=== PATIENT | female | born 1970 | race African-American/Black ===

== ENCOUNTER 2016-04-15 11:41 | Inpatient (IN) | payer MEDICAID ==
[2016-04-15] MEDS ORDERED: OXYCODONE-ACETAMINOPHEN 5-325 MG TABLET PO ONE (12:12)
[2016-04-15] MEDS ORDERED: ONDANSETRON 4 MG TAB.RAPDIS PO ONE (12:12)
--- NOTE | 2016-04-15 12:12 | ER Document Report ---
ED Medical Screen (RME) - General Chief Complaint: Abdominal Pain Stated Complaint: ABDOMINAL PAIN, VOMITING Notes: 45 yo female with hx/o Crohn's, c/o lower abdominal pain x 2 weeks, acutely worse since yesterday. + n/v/d. not tolerating PO. no fever. TRAVEL OUTSIDE OF THE [place] IN LAST 30 DAYS: No - Related Data Allergies/Adverse Reactions: ceftriaxone sodium [From Rocephin] Allergy (Severe, Verified 09/19/15 13:42) Anaphylaxis Ciprofloxacin Lactate [From Cipro I.V.] Allergy (Intermediate, Verified 13:42) Hives morphine [Morphine] Allergy (Intermediate, Verified 09/19/15 13:42) Hives aspirin [Aspirin] Adverse Reaction (Intermediate, Verified 09/19/15 13:42) GI distress tramadol [Tramadol] Adverse Reaction (Intermediate, Verified 09/19/15 13:42) GI upset Past Medical History - Social History Chew tobacco use (# tins/day): No Frequency of alcohol use: None Drug Abuse: None Family history: Reviewed & Not Pertinent Pulmonary Medical History: Reports: Hx Pneumonia Denies: Hx Asthma, Hx COPD, Hx Tuberculosis Neurological Medical History: Denies: Hx Seizures GI Medical History: Reports: Hx Crohn's Disease Psychiatric Medical History: Denies: Hx Depression Past Surgical History: Reports: Hx Abdominal Surgery, Hx Tubal Ligation. Denies : Hx Hysterectomy, Hx Pacemaker - Immunizations Hx Diphtheria, Pertussis, Tetanus Vaccination: Yes Physical Exam - Vital signs Vitals: Temp Pulse Resp BP Pulse Ox 97.7 F 94 20 112/80 99 04/15/16 12:04/15/16 12:04/15/16 12:04/15/16 12:06 04/15/16 12:06 Course - Vital Signs Vital signs: Temp Pulse Resp BP Pulse Ox 97.7 F 94 20 112/80 99 04/15/16 12:06 04/15/16 12:04/15/16 12:04/15/16 12:06 04/15/16 12:06
[2016-04-15 12:46] LABS: ABSOLUTE EOSINOPHILS # (AUTO) 0.1 10^3/uL (0.0-0.6); ABSOLUTE LYMPHOCYTES (AUTO) 1.3 10^3/uL (0.5-4.7); ABSOLUTE MONOCYTES (AUTO) 0.6 10^3/uL (0.1-1.4); ABSOLUTE NEUT (AUTO) 6.2 10^3/uL (1.7-8.2); BASOPHILS % (AUTO) 0.5 % (0-2); EOSINOPHILS % (AUTO) 1.3 % (0-6); HEMATOCRIT 37.4 % (36.0-47.0); HEMOGLOBIN 12.6 g/dL (12.0-15.5); HGB HCT DIFFERENCE 0.4; LYMPHOCYTES % (AUTO) 15.8 % (13-45); MEAN CORPUSCULAR HEMOGLOBIN 30.3 pg (27.0-33.4); MEAN CORPUSCULAR HGB CONC 33.5 g/dL (32.0-36.0); MEAN CORPUSCULAR VOLUME 91 fl (80-97); MONOCYTES % (AUTO) 7.4 % (3-13); RED BLOOD COUNT 4.14 10^6/uL (3.72-5.28); RED CELL DISTRIBUTION WIDTH 15.9 % (11.5-14.0); WHITE BLOOD COUNT 8.3 10^3/uL (4.0-10.5)
[2016-04-15 12:53] LABS: APPEARANCE,URINE CLOUDY; BILIRUBIN,URINE NEGATIVE (NEGATIVE); GLUCOSE, URINE NEGATIVE (NEGATIVE); KETONES,URINE 80 mg/dL (NEGATIVE); LEUKOCYTE ESTERASE,URINE TRACE (NEGATIVE); NITRITE,URINE NEGATIVE (NEGATIVE); PROTEIN,URINE 30 mg/dL (NEGATIVE); URINE SPECIFIC GRAVITY 1.029
[2016-04-15 13:05] LABS: ALANINE AMINOTRANSFERASE 32 U/L (9-52); ALKALINE PHOSPHATASE 64 U/L (38-126); ANION GAP 16 (5-19); ASPARTATE AMINO TRANSFERASE 20 U/L (14-36); BILIRUBIN,TOTAL 1.3 mg/dL (0.2-1.3); BLOOD UREA NITROGEN 11 mg/dL (7-20); CALCIUM 9.5 mg/dL (8.4-10.2); CARBON DIOXIDE 21 mmol/L (22-30); CHLORIDE 104 mmol/L (98-107); CREATININE RESULT 0.75 mg/dL (0.52-1.25); GLUCOSE 90 mg/dL (75-110); LIPASE 47.6 U/L (23-300); POTASSIUM 3.6 mmol/L (3.6-5.0); SODIUM 140.6 mmol/L (137-145); TOTAL PROTEIN 7.8 g/dL (6.3-8.2)
[2016-04-15] MEDS ORDERED: NORMAL SALINE 1000 ML 1,000 ML IV ONE ×2 (13:39→16:39)
[2016-04-15] MEDS ORDERED: HYDROMORPHONE HCL INJ/PF 2 MG/ML AMPULE IV ONE ×2 (13:40→16:06)
--- NOTE | 2016-04-15 14:02 | ER Document Report ---
ED GI/ - General Chief Complaint: Abdominal Pain Stated Complaint: ABDOMINAL PAIN, VOMITING Mode of Arrival: Ambulatory Information source: Patient Notes: The patient is a 45 her old female, past medical history Crohn's, prior abscesses, presents with 3 days of lower abdominal pain, similar to her prior SBO. She is also having some nausea and vomiting. She has not seen her GI doctor and was off Humira for the past 4 months. She has had decreased bowel movements today. She denies hematemesis, bloody diarrhea, urinary symptoms, flank pain, fevers, chest pain or shortness of breath. TRAVEL OUTSIDE OF THE [place] IN LAST 30 DAYS: No - Related Data Allergies/Adverse Reactions: ceftriaxone sodium [From Rocephin] Allergy (Severe, Verified 04/15/16 14:31) Anaphylaxis Ciprofloxacin Lactate [From Cipro I.V.] Allergy (Intermediate, Verified 14:31) Hives morphine [Morphine] Allergy (Intermediate, Verified 04/15/16 14:31) Hives aspirin [Aspirin] Adverse Reaction (Intermediate, Verified 04/15/16 14:31) GI distress tramadol [Tramadol] Adverse Reaction (Intermediate, Verified 04/15/16 14:31) GI upset Past Medical History - Social History Smoking Status: Current Every Day Smoker Chew tobacco use (# tins/day): No Frequency of alcohol use: None Drug Abuse: None Family History: Hypertension, Reviewed & Not Pertinent Patient has suicidal ideation: No Patient has homicidal ideation: No Pulmonary Medical History: Reports: Hx Pneumonia Denies: Hx Asthma, Hx COPD, Hx Tuberculosis Neurological Medical History: Denies: Hx Seizures GI Medical History: Reports: Hx Crohn's Disease Psychiatric Medical History: Denies: Hx Depression Past Surgical History: Reports: Hx Abdominal Surgery, Hx Tubal Ligation. Denies : Hx Hysterectomy, Hx Pacemaker - Immunizations Hx Diphtheria, Pertussis, Tetanus Vaccination: Yes Review of Systems - Review of Systems Notes: REVIEW OF SYSTEMS: CONSTITUTIONAL: Denies fever, chills, or sweats. Denies recent illness. EENT: Denies eye, ear, throat, or mouth pain or symptoms. Denies nasal or sinus congestion. CARDIOVASCULAR: Denies chest pain. RESPIRATORY: Denies cough, cold, or chest congestion. Denies shortness of breath, difficulty breathing, or wheezing. GASTROINTESTINAL: Abdominal pain, nausea, vomiting. Denies constipation, diarrhea. GENITOURINARY: Denies difficulty urinating, painful urination, burning, frequency, or blood in urine. FEMALE GENITOURINARY: Denies vaginal bleeding, abnormal or irregular periods. MUSCULOSKELETAL: Denies neck or back pain or joint pain or swelling. SKIN: Denies rash or skin lesions. HEMATOLOGIC: Denies easy bruising or bleeding. LYMPHATIC: Denies swollen, enlarged glands. NEUROLOGICAL: Denies altered mental status or loss of consciousness. Denies headache. Denies weakness or paralysis or loss of use of either side. Denies problems with gait or speech. Denies sensory or motor loss. PSYCHIATRIC: Denies anxiety or stress or depression. ALL OTHER SYSTEMS REVIEWED AND NEGATIVE. Physical Exam - Vital signs Vitals: Temp Pulse Resp BP Pulse Ox 97.7 F 94 20 112/80 99 04/15/16 12:06 04/15/16 12:06 04/15/16 12:06 04/15/16 12:06 04/15/16 12:06 - Notes Notes: PHYSICAL EXAMINATION: GENERAL: Mild distress. HEAD: Atraumatic, normocephalic. EYES: Pupils equal round and reactive to light, extraocular movements intact, sclera anicteric, conjunctiva are normal. ENT: nares patent, oropharynx clear without exudates. Moist mucous membranes. NECK: Normal range of motion, supple without lymphadenopathy LUNGS: Breath sounds clear to auscultation bilaterally and equal. No wheezes rales or rhonchi. HEART: Regular rate and rhythm without murmurs ABDOMEN: Soft, mildly tender over lower abdomen, hypoactive bowel sounds. No guarding, no rebound. No masses appreciated. EXTREMITIES: Normal range of motion, no pitting or edema. No cyanosis. NEUROLOGICAL: Cranial nerves grossly intact. Normal speech, normal gait. Normal sensory, motor, and reflex exams. PSYCH: Normal mood, normal affect. SKIN: Warm, Dry, normal turgor, no rashes or lesions noted. Course - Re-evaluation Re-evalutation: 04/15/16 15:59 Patient's pain and nausea under control at this time. CT shows evidence of SBO. Spoke to Dr. Damian Ahuja, Surgeon distributed energy systems consultant, and he has accepted patient under his service. Recommends large NG tube and maintenance fluids. - Vital Signs Vital signs: Temp Pulse Resp BP Pulse Ox 97.7 F 94 20 112/80 99 01/04/17 12:06 04/15/16 12:06 04/15/16 12:06 04/15/16 12:06 04/15/16 12:06 - Laboratory Result Diagrams: 04/15/16 12:15 04/15/16 12:15 Laboratory results interpreted by me: 04/15/16 04/15/16 04/15/16 12:15 12:15 12:20 RDW 15.9 H Plt Count 459 H Carbon Dioxide 21 L Urine Protein 30 H Urine Ketones 80 H Urine Urobilinogen 4.0 H Ur Leukocyte Esterase TRACE H - Diagnostic Test Radiology reviewed: Reports reviewed Radiology results interpreted by me: 04/15/16 15:58 SBO Discharge - Discharge Clinical Impression: Small bowel obstruction Condition: Stable Disposition: ADMITTED INPATIENT [facility]: Surgical Floor Referrals: OREN SEYMOUR MD [Primary Care Provider] - Follow up as needed
[2016-04-15] MEDS ORDERED: LIDOCAINE 2% JELLY 5 ML TUBE NASL ONE (15:49)
[2016-04-15] MEDS ORDERED: METOCLOPRAMIDE HCL INJ/PF 10 MG/2 ML SDV IV ONE (15:49)
[2016-04-15] MEDS ORDERED: NORMAL SALINE INJ/PF 0.9% 10 ML SDV IV ONE (15:55)
--- NOTE | 2016-04-15 18:56 | PDOC H&P ---
History of Present Illness Admission Date/PCP: 04/15/16 17:11 OREN SEYMOUR MD History of Present Illness: ANALISA BOLAND is a 45 year old -Greek female with a history of Crohn 's disease, diagnosed at age 10. She was on Humira for approximately 2 years until December. She complains of on and off pain since December 2015. She reports the pain became significantly worse yesterday, 01/19. Pain was made worse with eating and drinking. Pain was across lower abdomen. Pain was sharp in nature. Patient also had nausea and at least 6 times. She denies bloody stools, pain on defecation, bloody urine, pain with urination. She reports baseline diarrhea which is more liquid today than usual. She denies constipation. CT scan was done which reveals multiple dilated loops of small intestine. Surgery was called for bowel obstruction. She underwent exploratory laparoscopy and limited exploratory laparotomy in July 2015 at [facility]. She was transferred to [place] immediately after that surgery. She developed a wound infection which was drained and debrided 2-3 times and has since resolved. She has undergone scopes , both upper and lower, on multiple occasions. No one else her family has Crohn's disease, ulcerative colitis or colorectal cancer. Review of systems: All other systems were reviewed and are positive for back pain only. Past Medical History Cardiac Medical History: Denies: Myocardial Infarction, Hyperlipidema, Hypertension Pulmonary Medical History: Reports: Pneumonia Denies: Asthma, Bronchitis, Chronic Obstructive Pulmonary Disease (COPD) Endocrine Medical History: Denies: Diabetes Mellitus Type 2, Hyperthyroidism, Hypothyroidism Malignancy Medical History: Reports: None GI Medical History: Reports: Crohn's Disease Psychiatric Medical History: Denies: Depression, General Anxiety Disorder Hematology: Reports: Anemia Past Surgical History Past Surgical History: Reports: Tubal Ligation, Other - Exploratory laparoscopy and limited exploratory laparotomy in July 2015. Social History Information Source: Patient Lives with: Family - Lives with granddaughter. Accompanied by fianc. Not employed. Smoking Status: Current Every Day Smoker Cigarettes Packs Per Day: 0.5 Frequency of Alcohol Use: None Hx Recreational Drug Use: No Drugs: None Hx Prescription Drug Abuse: No Family History Family History: Hypertension, Malignancy - Lung cancer and father Parental Family History Reviewed: Yes Children Family History Reviewed: Yes Sibling(s) Family History Reviewed.: Yes Medication/Allergy Home Medications: No Home Medications 04/15/16 Allergies/Adverse Reactions: ceftriaxone sodium [From Rocephin] Allergy (Severe, Verified 04/15/16 14:31) Anaphylaxis Ciprofloxacin Lactate [From Cipro I.V.] Allergy (Intermediate, Verified 14:31) Hives morphine [Morphine] Allergy (Intermediate, Verified 04/15/16 14:31) Hives aspirin [Aspirin] Adverse Reaction (Intermediate, Verified 04/15/16 14:31) GI distress tramadol [Tramadol] Adverse Reaction (Intermediate, Verified 04/15/16 14:31) GI upset Review of Systems All systems: reviewed and no additional remarkable complaints except as stated Physical Exam Vital Signs: Temp Pulse Resp BP Pulse Ox 97.7 F 94 20 112/80 99 04/15/16 12:06 04/15/16 12:06 04/15/16 12:06 04/15/16 12:06 04/15/16 12:06 Intake & Output 04/14/16 04/15/16 04/16/16 06:59 06:59 06:59 Output Total 400 Balance -400 General appearance: PRESENT: no acute distress, thin Head exam: PRESENT: normocephalic Eye exam: PRESENT: EOMI, scleral icterus - Appears to have some scleral icterus , although patient and fianc report her eyes seem at their baseline to them. Mouth exam: PRESENT: tongue midline Neck exam: ABSENT: JVD, lymphadenopathy, tenderness, thyromegaly Respiratory exam: PRESENT: clear to auscultation radha Cardiovascular exam: PRESENT: RRR GI/Abdominal exam: PRESENT: firm, hypoactive bowel sounds, tenderness. ABSENT: distended, guarding, rebound, rigid Extremities exam: ABSENT: pedal edema, tenderness Neurological exam: PRESENT: alert, oriented to person, oriented to place, oriented to time, oriented to situation Psychiatric exam: PRESENT: other - Somewhat short and/or tacit with her answers. During review of systems and history, somewhat agitated when her fianc suggest additional issues or tries to volunteer additional information. Results Impressions: Abdomen/Pelvis CT 04/15/16 13:42 IMPRESSION: Multiple air and fluid distended small bowel loops are identified consistent with a small bowel obstruction. More normal caliber small bowel loops are identified predominately in the left abdomen without a definite transition point being identified. There are a couple bowel loops in the mid abdomen with apparent thickening of the eid which may be related to involvement by the patient's known Crohn's disease. Other findings as noted above Status: Image reviewed by me Assessment & Plan - Diagnosis (1) Crohns disease Is this a current diagnosis for this admission?: YesPlan: Given her pain, nausea and vomiting, and CT scan, we will treat for bowel obstruction with NG tube, nothing by mouth, IV fluids, IV pain meds, PPI, SCDs, incentive spirometry. Her abdomen does not appear especially distended, but she is extremely thin at baseline. Hard to discern if there is an element of active Crohn's disease in addition to the small bowel obstruction. Given her normal vitals and normal white count, I'm hesitant to start high-dose steroids without definitively proving active Crohn's disease. We'll consult gastroenterology in the morning for further assessment/management of the Crohn' s disease. (2) Small bowel obstruction Is this a current diagnosis for this admission?: YesPlan: Given her pain, nausea and vomiting, and CT scan, we will treat for bowel obstruction with NG tube, nothing by mouth, IV fluids, IV pain meds, PPI, SCDs, incentive spirometry. Her abdomen does not appear especially distended, but she is extremely thin at baseline. Hard to discern if there is an element of active Crohn's disease in addition to the small bowel obstruction. We'll consult gastroenterology in the morning.
[2016-04-15] MEDS ORDERED: PANTOPRAZOLE SODIUM 40 MG VIAL IV ONE (19:00)
[2016-04-15] MEDS: HYDROMORPHONE HCL INJ/PF 2 MG/ML AMPULE IV PRN ×2 (20:27→22:36)
[2016-04-15] MEDS: POTASSI CL 20 MEQ/D5-1/2NS 1L 1,000 ML IV PRN (22:36)
[2016-04-16] MEDS ORDERED: PANTOPRAZOLE SODIUM 40 MG VIAL IV ONE (00:44)
[2016-04-16] MEDS: HYDROMORPHONE HCL INJ/PF 2 MG/ML AMPULE IV PRN ×12 (00:46→23:59)
[2016-04-16] MEDS: ONDANSETRON HCL INJ/PF 4 MG/2 ML SDV IV PRN (00:51)
[2016-04-16] MEDS ORDERED: PHENOL/SODIUM PHENOLATE 100 SPRAY/177 ML BOTTLE ONE (02:18)
[2016-04-16] MEDS: PHENOL/SODIUM PHENOLATE 100 SPRAY/177 ML BOTTLE PO PRN ×2 (02:52→06:56)
[2016-04-16 05:50] LABS: ALANINE AMINOTRANSFERASE 31 U/L (9-52); ALBUMIN 2.7 g/dL (3.5-5.0); ALKALINE PHOSPHATASE 45 U/L (38-126); ANION GAP 10 (5-19); ASPARTATE AMINO TRANSFERASE 15 U/L (14-36); BILIRUBIN,TOTAL 0.8 mg/dL (0.2-1.3); BLOOD UREA NITROGEN 9 mg/dL (7-20); CALCIUM 8.5 mg/dL (8.4-10.2); CARBON DIOXIDE 24 mmol/L (22-30); CHLORIDE 107 mmol/L (98-107); CREATININE RESULT 0.68 mg/dL (0.52-1.25); GLUCOSE 95 mg/dL (75-110); MAGNESIUM 1.6 mg/dL (1.6-2.3); POTASSIUM 3.7 mmol/L (3.6-5.0); SODIUM 140.8 mmol/L (137-145); TOTAL PROTEIN 5.8 g/dL (6.3-8.2)
[2016-04-16] MEDS: POTASSI CL 20 MEQ/D5-1/2NS 1L 1,000 ML IV PRN ×2 (06:56→18:03)
[2016-04-16] MEDS: PANTOPRAZOLE SODIUM 40 MG VIAL IV SCH (09:56)
--- NOTE | 2016-04-16 13:16 | PDOC CONSULTATION ---
Consultation Consult Date: 04/16/16 Attending physician:: CHUCHO DALTON Consult reason:: Questionable flare of Crohn's disease. Small bowel obstruction History of Present Illness Admission Date/PCP: 04/15/16 18:11 OREN SEYMOUR MD History of Present Illness: This is a patient who I'm seeing in the past. I been asked by the surgical service to consult on this patient. My last interaction with this patient was approximately a year ago when she presented with almost similar symptoms. At that point on colonoscopy she was noted to have an obstructing stricture and underwent surgery that was performed here in [place]. She apparently was transferred to [facility] the day immediately after the procedure. She apparently had complications with regards to her surgery. She has been followed up and find it multiple times since her discharge diet approximately 9 months ago. She is also presented here fairly frequently and has been transferred to another institution. This time she was was admitted to the surgical service. She had a CT scan done which showed small bowel obstruction. She has since had an NG tube placed. Previously she had both large as well as small bowel Crohn' s disease. Immediately after her surgery last year she was started back on her Humira. However she was not able to obtain any further Humira since December. She presents with nausea vomiting abdominal pain and CT evidence of possible small bowel obstruction. I do suspect that she has a recurrence of her Crohn's disease. Unfortunately the starting back off Humira at this point could possibly make the situation worse. In the past Humira because of its effectiveness has coarse stricturing of diseased areas due to very rapid healing. Conservative therapy should be continued. Past Medical History Cardiac Medical History: Denies: Myocardial Infarction, Hyperlipidema, Hypertension Pulmonary Medical History: Reports: Pneumonia Denies: Asthma, Bronchitis, Chronic Obstructive Pulmonary Disease (COPD), Tuberculosis Neurological Medical History: Denies: Seizures Endocrine Medical History: Denies: Diabetes Mellitus Type 2, Hyperthyroidism, Hypothyroidism Malignancy Medical History: Reports: None GI Medical History: Reports: Crohn's Disease Psychiatric Medical History: Reports: Depression Denies: General Anxiety Disorder Hematology: Reports: Anemia Past Surgical History Past Surgical History: Reports: Tubal Ligation, Other - Exploratory laparoscopy and limited exploratory laparotomy in July 2015. Denies: Hysterectomy, Pacemaker Social History Lives with: Family - Lives with granddaughter. Accompanied by fianc. Not employed. Smoking Status: Current Every Day Smoker Cigarettes Packs Per Day: 0.5 Frequency of Alcohol Use: None Hx Recreational Drug Use: No Drugs: None Hx Prescription Drug Abuse: No - Advance Directive Resuscitation Status: Full Code Family History Family History: Hypertension, Malignancy - Lung cancer and father Parental Family History Reviewed: Yes Children Family History Reviewed: Unknown Sibling(s) Family History Reviewed.: Unknown Medication/Allergy Home Medications: No Home Medications 04/15/16 Allergies/Adverse Reactions: ceftriaxone sodium [From Rocephin] Allergy (Severe, Verified 04/15/16 14:31) Anaphylaxis Ciprofloxacin Lactate [From Cipro I.V.] Allergy (Intermediate, Verified 14:31) Hives morphine [Morphine] Allergy (Intermediate, Verified 04/15/16 14:31) Hives aspirin [Aspirin] Adverse Reaction (Intermediate, Verified 04/15/16 14:31) GI distress tramadol [Tramadol] Adverse Reaction (Intermediate, Verified 04/15/16 14:31) GI upset Review of Systems Constitutional: PRESENT: weakness, weight loss. ABSENT: fever(s), headache(s), night sweats Eyes: ABSENT: visual disturbances Ears: ABSENT: hearing changes Nose, Mouth, and Throat: ABSENT: sore throat Cardiovascular: ABSENT: chest pain, orthropnea, palpitations Respiratory: ABSENT: dyspnea, hemoptysis Gastrointestinal: PRESENT: abdominal pain, diarrhea, nausea, vomiting. ABSENT: coffee ground emesis, hematemesis, hematochezia, melena Genitourinary: ABSENT: dysuria, hematuria Integumentary: ABSENT: lesions, pruritus Neurological: PRESENT: weakness. ABSENT: syncope, tremor(s), vertigo Endocrine: ABSENT: polydipsia, polyphagia, polyuria Hematologic/Lymphatic: ABSENT: easy bruising Physical Exam Vital Signs: Temp Pulse Resp BP Pulse Ox 98.6 F 87 28 H 102/64 99 04/16/16 07:27 04/16/16 07:27 04/16/16 07:27 04/16/16 07:27 04/16/16 07:27 Intake & Output 04/15/16 04/16/16 04/17/16 06:59 06:59 06:59 Intake Total 300 Output Total 200 Balance 100 Weight 48.6 kg General appearance: PRESENT: no acute distress, cooperative, thin Head exam: PRESENT: atraumatic, normocephalic Eye exam: PRESENT: EOMI, PERRLA. ABSENT: nystagmus, periorbital swelling, scleral icterus Mouth exam: PRESENT: moist Throat exam: ABSENT: tonsillar exudate Neck exam: ABSENT: meningismus, tenderness, thyromegaly, tracheostomy Respiratory exam: PRESENT: symmetrical, unlabored. ABSENT: chest wall tenderness Cardiovascular exam: PRESENT: RRR, +S1, +S2 GI/Abdominal exam: PRESENT: tenderness. ABSENT: Corley's sign, rebound Extremities exam: ABSENT: joint swelling Neurological exam: PRESENT: alert, awake, oriented to time, oriented to situation, CN II-XII grossly intact Psychiatric exam: PRESENT: appropriate affect Skin exam: PRESENT: normal color. ABSENT: mottled, pallor, petechiae, urticaria , vesicles Results Laboratory Results: 04/16/16 05:07 04/16/16 05:07 Sodium 140.8 Potassium 3.7 Chloride 107 Carbon Dioxide 24 Anion Gap 10 BUN 9 Creatinine 0.68 Est GFR ( Amer) > 60 Est GFR (Non-Af Amer) > 60 Glucose 95 Calcium 8.5 Phosphorus 3.0 Magnesium 1.6 Total Bilirubin 0.8 AST 15 ALT 31 Alkaline Phosphatase 45 Total Protein 5.8 L Albumin 2.7 L Impressions: KUB X-Ray 04/15/16 00:00 IMPRESSION: Nasogastric catheter tip overlies the body of the stomach. NonSpecific bowel gas pattern. Mildly dilated small bowel loops, similar- appearing compared with September 2015. Abdomen/Pelvis CT 04/15/16 13:42 IMPRESSION: Multiple air and fluid distended small bowel loops are identified consistent with a small bowel obstruction. More normal caliber small bowel loops are identified predominately in the left abdomen without a definite transition point being identified. There are a couple bowel loops in the mid abdomen with apparent thickening of the eid which may be related to involvement by the patient's known Crohn's disease. Other findings as noted above Assessment & Plan - Diagnosis (1) Crohns disease Qualifiers: Gastrointestinal tract location: small and large intestine Is this a current diagnosis for this admission?: YesPlan: Patient was severe Crohn's disease of both the small and large intestine. Approximately a year ago she required surgery for an obstructive stricture in her large colon but even at that point in time she likely had small bowel disease. She had some postprocedure complications after her surgery but I suspect that her Crohn's disease has now flared given the fact that she has been off Humira for approximately 3 months. I would not restart it at this point in time because of the fact that he could cause more of a stricture. I do not suspect an ileus as she is having bowel movements she is having loose stools and that's probably an indication that is more consistent with Crohn's disease. She should be on conservative therapy with NG tube suction. She is allergic to Cipro and will need to be on antibiotics including Flagyl and the broad-spectrum antibiotics to cover for gram-negative organisms. (2) Small bowel obstruction Is this a current diagnosis for this admission?: YesPlan: She is on the surgical service. Continue NG tube suction and conservative therapy. - Time Time Spent: 50 to 70 Minutes
--- NOTE | 2016-04-16 17:10 | PDOC PROGRESS REPORT ---
Subjective Progress Note for:: 04/16/16 Subjective:: Patient complaining of throat pain, can't stand the NG tube; no flatus. Physical Exam Vital Signs: Temp Pulse Resp BP Pulse Ox 98.5 F 80 18 102/70 99 04/16/16 12:00 04/16/16 12:00 04/16/16 12:00 04/16/16 12:00 04/16/16 07:27 Intake & Output 04/15/16 04/16/16 04/17/16 06:59 06:59 06:59 Intake Total 300 Output Total 200 Balance 100 Weight 48.6 kg General appearance: PRESENT: mild distress GI/Abdominal exam: PRESENT: other - Nasogastric tube with 150 mL of output. Abdomen is nondistended and mildly tender. No rigidity. Results Laboratory Results: 04/16/16 05:07 04/16/16 05:07 Sodium 140.8 Potassium 3.7 Chloride 107 Carbon Dioxide 24 Anion Gap 10 BUN 9 Creatinine 0.68 Est GFR ( Amer) > 60 Est GFR (Non-Af Amer) > 60 Glucose 95 Calcium 8.5 Phosphorus 3.0 Magnesium 1.6 Total Bilirubin 0.8 AST 15 ALT 31 Alkaline Phosphatase 45 Total Protein 5.8 L Albumin 2.7 L Impressions: KUB X-Ray 04/15/16 00:00 IMPRESSION: Nasogastric catheter tip overlies the body of the stomach. NonSpecific bowel gas pattern. Mildly dilated small bowel loops, similar- appearing compared with September 2015. Abdomen/Pelvis CT 04/15/16 13:42 IMPRESSION: Multiple air and fluid distended small bowel loops are identified consistent with a small bowel obstruction. More normal caliber small bowel loops are identified predominately in the left abdomen without a definite transition point being identified. There are a couple bowel loops in the mid abdomen with apparent thickening of the eid which may be related to involvement by the patient's known Crohn's disease. Other findings as noted above Assessment & Plan - Diagnosis (1) Crohns disease Qualifiers: Gastrointestinal tract location: small and large intestine Is this a current diagnosis for this admission?: YesPlan: 1. Continue nasogastric decompression, IV fluids, nothing by mouth, pain management 2. Await input from gastroenterology. 3. No indication for surgical intervention at this time. Kati dictating: Gregory - Time Time Spent with patient: 15-24 minutes
[2016-04-17] MEDS: HYDROMORPHONE HCL INJ/PF 2 MG/ML AMPULE IV PRN ×9 (02:04→21:28)
[2016-04-17] MEDS: POTASSI CL 20 MEQ/D5-1/2NS 1L 1,000 ML IV PRN ×3 (03:20→23:28)
[2016-04-17] MEDS: PHENOL/SODIUM PHENOLATE 100 SPRAY/177 ML BOTTLE PO PRN (07:42)
[2016-04-17] MEDS: PANTOPRAZOLE SODIUM 40 MG VIAL IV SCH (09:28)
--- NOTE | 2016-04-17 11:02 | PDOC PROGRESS REPORT ---
Subjective Progress Note for:: 04/17/16 Subjective:: Patient remains in the hospital. NG is uncomfortable for her, she wants it removed. However may want to clamp is see if she could tolerate. Suspect possible flare of Crohn's disease ? of possibly inducing a stricture with restarting of Humira she would likely benefit from antibiotics for now once the NG discontinued, then start 5ASA and possible steroids at that time Physical Exam Vital Signs: Temp Pulse Resp BP Pulse Ox 98.3 F 77 17 99/71 L 100 04/17/16 08:44 04/17/16 08:44 04/17/16 08:44 04/17/16 08:44 04/17/16 08:44 Intake & Output 04/16/16 04/17/16 04/18/16 06:59 06:59 06:59 Intake Total 300 2407 Output Total 200 900 Balance 100 1507 Weight 48.6 kg 49.1 kg General appearance: PRESENT: no acute distress, cooperative Head exam: PRESENT: atraumatic, normocephalic Eye exam: PRESENT: EOMI, PERRLA. ABSENT: nystagmus, periorbital swelling, scleral icterus Neck exam: ABSENT: meningismus, tenderness, thyromegaly, tracheostomy Respiratory exam: PRESENT: clear to auscultation radha, symmetrical, unlabored Cardiovascular exam: PRESENT: RRR, +S1, +S2 GI/Abdominal exam: ABSENT: guarding, Corley's sign, rebound, rigid Musculoskeletal exam: PRESENT: full ROM Neurological exam: PRESENT: alert, awake, oriented to time, oriented to situation, CN II-XII grossly intact Skin exam: PRESENT: normal color. ABSENT: mottled, pallor, petechiae, urticaria , vesicles Results Laboratory Results: 04/16/16 05:07 04/16/16 06:40 Nasophary ([facility] Only) MRSA Surveillance Culture - Final MRSA RECOVERED Impressions: KUB X-Ray 04/15/16 00:00 IMPRESSION: Nasogastric catheter tip overlies the body of the stomach. NonSpecific bowel gas pattern. Mildly dilated small bowel loops, similar- appearing compared with September 2015. Abdomen/Pelvis CT 04/15/16 13:42 IMPRESSION: Multiple air and fluid distended small bowel loops are identified consistent with a small bowel obstruction. More normal caliber small bowel loops are identified predominately in the left abdomen without a definite transition point being identified. There are a couple bowel loops in the mid abdomen with apparent thickening of the eid which may be related to involvement by the patient's known Crohn's disease. Other findings as noted above Assessment & Plan - Diagnosis (1) Crohns disease Qualifiers: Gastrointestinal tract location: small and large intestine Is this a current diagnosis for this admission?: YesPlan: flare of Crohn's with several dilated loops of small bowel recent surgery of large bowel patient needs to continue with conservative therapy start 5 ASA and or steroids restart Humira once has clinical improvement hold on initiating diet for now Can check ESR in AM labs anti-sachromyces antibody would be useful as well (2) Small bowel obstruction Is this a current diagnosis for this admission?: YesPlan: No indication for surgery at this time may want to transfer patient to medical service. - Time Time Spent with patient: 25-34 minutes
--- NOTE | 2016-04-17 16:35 | PDOC PROGRESS REPORT ---
Subjective Progress Note for:: 04/17/16 Subjective:: Seen earlier this morning. The patient was threatening to leave AMA and threatening to remove the NG tube herself. Patient had nursing call M.D. several times to be seen urgently. States that she cannot tolerate the discomfort of the NG tube. Denies nausea, vomiting. Reports flatus and small BM. BM was not recorded by nursing. Physical Exam Vital Signs: Temp Pulse Resp BP Pulse Ox 98.0 F 78 20 103/65 100 04/17/16 12:06 04/17/16 12:06 04/17/16 12:06 04/17/16 12:06 04/17/16 12:06 Intake & Output 04/16/16 04/17/16 04/18/16 06:59 06:59 06:59 Intake Total 300 2407 Output Total 200 900 Balance 100 1507 Weight 48.6 kg 49.1 kg General appearance: PRESENT: no acute distress, thin Head exam: PRESENT: normocephalic Eye exam: PRESENT: EOMI Mouth exam: PRESENT: tongue midline GI/Abdominal exam: PRESENT: firm - Patient is very thin. The abdomen is not distended. There is no guarding or rebound or peritoneal signs, however it is not necessarily soft., hypoactive bowel sounds, tenderness - Minimally tender just to the right of midline in the lower abdomen.. ABSENT: distended Neurological exam: PRESENT: other - The patient is agitated and anxious, related to the NG tube. She is threatening to remove it. Results Laboratory Results: 04/16/16 05:07 04/16/16 06:40 Nasophary ([facility] Only) MRSA Surveillance Culture - Final MRSA RECOVERED Impressions: KUB X-Ray 04/15/16 00:00 IMPRESSION: Nasogastric catheter tip overlies the body of the stomach. NonSpecific bowel gas pattern. Mildly dilated small bowel loops, similar- appearing compared with September 2015. Abdomen/Pelvis CT 04/15/16 13:42 IMPRESSION: Multiple air and fluid distended small bowel loops are identified consistent with a small bowel obstruction. More normal caliber small bowel loops are identified predominately in the left abdomen without a definite transition point being identified. There are a couple bowel loops in the mid abdomen with apparent thickening of the eid which may be related to involvement by the patient's known Crohn's disease. Other findings as noted above Assessment & Plan - Diagnosis (1) Crohns disease Qualifiers: Gastrointestinal tract location: small and large intestine Is this a current diagnosis for this admission?: Yes (2) Small bowel obstruction Is this a current diagnosis for this admission?: YesPlan: The patient demands NG tube be removed. I counseled her extensively on the risk of removing the NG prematurely, but in the end, to avoid her leaving AMA, we will remove the NG tube. No diet. Defer to gastroenterology for treatment of Crohn's disease.
[2016-04-18] MEDS: HYDROMORPHONE HCL INJ/PF 2 MG/ML AMPULE IV PRN ×9 (02:39→23:14)
[2016-04-18] MEDS: ONDANSETRON HCL INJ/PF 4 MG/2 ML SDV IV PRN (02:49)
[2016-04-18] MEDS ORDERED: METRONIDAZOLE 500 MG/NS RTU 100 ML IV ONE (08:00)
[2016-04-18] MEDS: POTASSI CL 20 MEQ/D5-1/2NS 1L 1,000 ML IV PRN ×2 (08:46→22:34)
[2016-04-18] MEDS: PANTOPRAZOLE SODIUM 40 MG VIAL IV SCH (10:20)
--- NOTE | 2016-04-18 13:39 | PDOC PROGRESS REPORT ---
Subjective Progress Note for:: 04/18/16 Subjective:: Patient denies nausea, vomiting, fever, her NG tube was removed yesterday, she is passing gas but no bowel movement. Her abdominal pain is improving. Physical Exam Vital Signs: Temp Pulse Resp BP Pulse Ox 98.7 F 79 20 101/59 L 100 04/18/16 11:40 04/18/16 11:40 04/18/16 11:40 04/18/16 11:40 04/18/16 11:40 Intake & Output 04/17/16 04/18/16 04/19/16 06:59 06:59 06:59 Intake Total 2407 2654 Output Total 900 Balance 1507 2654 Weight 49.1 kg 47.6 kg General appearance: PRESENT: no acute distress. ABSENT: well-nourished Head exam: PRESENT: atraumatic, normocephalic Respiratory exam: PRESENT: clear to auscultation radha GI/Abdominal exam: PRESENT: soft. ABSENT: distended, firm, guarding, hernia, rebound, rigid, tenderness Rectal exam: PRESENT: deferred Neurological exam: PRESENT: alert, awake Results Laboratory Results: 04/16/16 05:07 04/16/16 06:40 Nasophary ([facility] Only) MRSA Surveillance Culture - Final MRSA RECOVERED Impressions: KUB X-Ray 04/15/16 00:00 IMPRESSION: Nasogastric catheter tip overlies the body of the stomach. NonSpecific bowel gas pattern. Mildly dilated small bowel loops, similar- appearing compared with September 2015. Abdomen/Pelvis CT 04/15/16 13:42 IMPRESSION: Multiple air and fluid distended small bowel loops are identified consistent with a small bowel obstruction. More normal caliber small bowel loops are identified predominately in the left abdomen without a definite transition point being identified. There are a couple bowel loops in the mid abdomen with apparent thickening of the eid which may be related to involvement by the patient's known Crohn's disease. Other findings as noted above Assessment & Plan - Diagnosis (1) Small bowel obstruction Is this a current diagnosis for this admission?: YesPlan: It is improving, she is passing gas, denies nausea and vomiting after removal of the NG tube yesterday. Plan: Out of bed ambulate, continue IV fluids, will start sips of clear liquid diet, continue Flagyl, strict ins and outs. I discussed with the patient the possible need for NG tube placement if she developed vomiting, or worsening abdominal pain.
[2016-04-18] MEDS: METRONIDAZOLE 500 MG/NS RTU 100 ML IV SCH ×2 (14:00→22:34)
[2016-04-19] MEDS: HYDROMORPHONE HCL INJ/PF 2 MG/ML AMPULE IV PRN ×9 (03:22→22:37)
[2016-04-19] MEDS: ONDANSETRON HCL INJ/PF 4 MG/2 ML SDV IV PRN ×2 (03:24→09:57)
[2016-04-19] MEDS: METRONIDAZOLE 500 MG/NS RTU 100 ML IV SCH ×3 (05:29→21:21)
[2016-04-19] MEDS: HYDROCORTISONE SOD SUCCINATE INJ/PF 100 MG/2 ML SDV IV SCH ×2 (09:57→17:13)
[2016-04-19] MEDS: POTASSI CL 20 MEQ/D5-1/2NS 1L 1,000 ML IV PRN (12:23)
--- NOTE | 2016-04-19 13:19 | PDOC PROGRESS REPORT ---
Subjective Progress Note for:: 04/19/16 Subjective:: Patient denies nausea, vomiting, she continued to pass gas, no bowel movement. She was started on a clear liquid diet yesterday. Physical Exam Vital Signs: Temp Pulse Resp BP Pulse Ox 98.2 F 64 17 94/61 L 100 04/19/16 11:44 04/19/16 11:44 04/19/16 11:44 04/19/16 11:44 04/19/16 11:44 Intake & Output 04/18/16 04/19/16 04/20/16 06:59 06:59 06:59 Intake Total 2654 4885 Balance 2654 4885 Weight 47.6 kg 48.4 kg General appearance: PRESENT: no acute distress, cooperative Head exam: PRESENT: atraumatic, normocephalic Respiratory exam: ABSENT: accessory muscle use, chest wall tenderness GI/Abdominal exam: PRESENT: soft, tenderness - Mild in the right side of the abdomen. ABSENT: distended, firm, guarding, hernia, rebound, rigid Rectal exam: PRESENT: deferred Neurological exam: PRESENT: alert, awake Results Laboratory Results: 04/16/16 05:07 Impressions: KUB X-Ray 04/15/16 00:00 IMPRESSION: Nasogastric catheter tip overlies the body of the stomach. NonSpecific bowel gas pattern. Mildly dilated small bowel loops, similar- appearing compared with September 2015. Abdomen/Pelvis CT 04/15/16 13:42 IMPRESSION: Multiple air and fluid distended small bowel loops are identified consistent with a small bowel obstruction. More normal caliber small bowel loops are identified predominately in the left abdomen without a definite transition point being identified. There are a couple bowel loops in the mid abdomen with apparent thickening of the eid which may be related to involvement by the patient's known Crohn's disease. Other findings as noted above Assessment & Plan - Diagnosis (1) Small bowel obstruction Is this a current diagnosis for this admission?: YesPlan: Seems to be resolving. Plan : Continue IV antibiotics, clear liquid diet, IV steroids, we well discussed with the gastroenterology Dr. Mora further management.
[2016-04-19] MEDS ORDERED: POTASSI CL 20 MEQ/D5-1/2NS 1L 1,000 ML IV PRN (16:37)
[2016-04-20] MEDS: HYDROMORPHONE HCL INJ/PF 2 MG/ML AMPULE IV PRN ×5 (01:00→10:04)
[2016-04-20] MEDS: HYDROCORTISONE SOD SUCCINATE INJ/PF 100 MG/2 ML SDV IV SCH ×2 (02:48→10:02)
[2016-04-20] MEDS: METRONIDAZOLE 500 MG/NS RTU 100 ML IV SCH (05:15)
[2016-04-20 08:10] VITALS: BP 99/58
[2016-04-20] MEDS ORDERED: PANTOPRAZOLE SODIUM 40 MG VIAL IV SCH (10:00)
--- NOTE | 2016-04-20 11:13 | DISCHARGE SUMMARY E ---
Discharge Summary NAME: ANALISA BOLAND : 1970 AGE: 45Y ADMITTED: 04/15/2016 DISCHARGED: 04/20/2016 REASON FOR ADMISSION: Abdominal pain. SUMMARY OF HOSPITALIZATION: The patient is a 45-year-old -[place] female with a known history of Crohn disease since age 10. She was seen in the Emergency Department complaining of worsening abdominal pain. She had a CT scan of the abdomen and pelvis which showed dilated loops of small intestine. She was admitted to the surgicalist service for further observation. Please see her admission history and physical for complete documentation. In the interim, the patient has not received immune-modulated therapy since December 2015. The patient was kept n.p.o. and on IV fluids and nasogastric decompression. Clinically she improved somewhat, and had the nasogastric tube removed. She was seen in consultation by Dr. Mora who recommended conservative management without the resumption of anti-immune therapy. Towards the end of her hospital stay she was started on IV hydrocortisone. Eventually the patient started tolerating a diet and moving her bowels. She was taking pain medication orally at this time. By the sixth hospital day she was felt to receive maximum benefit from her hospitalization and was anxious to go home. FINAL DIAGNOSIS: Acute flareup of Crohn's, moderate, in patient with ileal and colonic involvement: No history of intestinal resection. DISPOSITION: The patient will be discharged home in the care of her family. Follow up with Dr. Mora, ingredient mixer locally. We have also directed her to seek pain management care from a local provider; we did give her a limited supply of Percocet to take p.r.n. We are also giving her a steroid taper at 40 mg p.o. prednisone. DICTATING PHYSICIAN: HERMINIO SANTIAGO M.D. [id number] PHY#: [id number] ID: [id number] JOB#: [id number] ACCT: [id number] cc:ELVIRA CARABALLO M.D. >
== END 2016-04-20 11:16 | disposition home or self-care (01) | DRG 386 ==
LOC: ER 11:41 → EH 17:11 → UNDOADMIN 17:11 → EH 18:11 → 4N 20:01
PROVIDERS: ADMIT Surgery; ATTEND Surgery
DX: K50.812 Crohn's disease of both small and large intestine with intestinal obstruction (principal); F17.210 Nicotine dependence, cigarettes, uncomplicated; Z88.1 Allergy status to other antibiotic agents; Z88.5 Allergy status to narcotic agent; Z88.6 Allergy status to analgesic agent
CPT/HCPCS: 36415; 74000; 74177; 80053; 81001; 83690; 83735; 84100; 85025; 96361; 96374; 96375; 96376; 99285; J1170; J1720; J2405; J3480; J3490; J7030; S0119; S0164

== ENCOUNTER 2016-05-08 13:29 | Emergency (ER) | payer MEDICAID ==
--- NOTE | 2016-05-08 13:45 | ER Document Report ---
ED Medical Screen (RME) - General Stated Complaint: ABDOMINAL PAIN,VOMITING,NAUSEA Time seen by provider: 13:43 Mode of Arrival: Ambulatory Information source: Patient Notes: 45-year-old female presents to ED for abdominal pain with history of Crohn's. Denies any rectal bleeding or diarrhea states she is having nausea and vomiting 2 times today. She states she was here on the fourth and admitted and discharged on the ninth for the same problem. I have greeted and performed a rapid initial assessment of this patient. A comprehensive ED assessment and evaluation of the patient, analysis of test results and completion of medical decision making process will be conducted by an additional ED providers. TRAVEL OUTSIDE OF THE [place] IN LAST 30 DAYS: No - Related Data Allergies/Adverse Reactions: ceftriaxone sodium [From Rocephin] Allergy (Severe, Verified 05/08/16 13:43) Anaphylaxis Ciprofloxacin Lactate [From Cipro I.V.] Allergy (Intermediate, Verified 13:43) Hives morphine [Morphine] Allergy (Intermediate, Verified 05/08/16 13:43) Hives aspirin [Aspirin] Adverse Reaction (Intermediate, Verified 05/08/16 13:43) GI distress tramadol [Tramadol] Adverse Reaction (Intermediate, Verified 05/08/16 13:43) GI upset Past Medical History - Social History Family history: Reviewed & Not Pertinent - Past Medical History Cardiac Medical History: Denies: Hx Heart Attack, Hx Hypercholesterolemia, Hx Hypertension Pulmonary Medical History: Reports: Hx Pneumonia Denies: Hx Asthma, Hx Bronchitis, Hx COPD, Hx Tuberculosis Neurological Medical History: Denies: Hx Seizures Endocrine Medical History: Denies: Hx Diabetes Mellitus Type 2, Hx Hyperthyroidism, Hx Hypothyroidism GI Medical History: Reports: Hx Crohn's Disease Psychiatric Medical History: Reports: Hx Depression Past Surgical History: Reports: Hx Abdominal Surgery, Hx Tubal Ligation, Other - Exploratory laparoscopy and limited exploratory laparotomy in July 2015.. Denies: Hx Hysterectomy, Hx Pacemaker - Immunizations Hx Diphtheria, Pertussis, Tetanus Vaccination: Yes
[2016-05-08] MEDS ORDERED: ONDANSETRON 4 MG TAB.RAPDIS PO ONE (13:46)
[2016-05-08 14:33] LABS: AMORPHOUS SEDIMENT,URINE TRACE /HPF; APPEARANCE,URINE SLIGHTLY-CLOUDY; BILIRUBIN,URINE NEGATIVE (NEGATIVE); GLUCOSE, URINE NEGATIVE (NEGATIVE); KETONES,URINE TRACE mg/dL (NEGATIVE); LEUKOCYTE ESTERASE,URINE NEGATIVE (NEGATIVE); NITRITE,URINE NEGATIVE (NEGATIVE); PROTEIN,URINE NEGATIVE (NEGATIVE); URINE SPECIFIC GRAVITY 1.025
[2016-05-08] MEDS ORDERED: NORMAL SALINE 1000 ML 1,000 ML IV ONE (16:34)
[2016-05-08] MEDS ORDERED: HYDROMORPHONE HCL INJ/PF 2 MG/ML AMPULE IV ONE ×2 (16:36→19:21)
[2016-05-08] MEDS ORDERED: ONDANSETRON HCL INJ/PF 4 MG/2 ML SDV IV ONE (16:36)
[2016-05-08 16:41] LABS: ABSOLUTE BASOPHILS # (AUTO) 0.1 10^3/uL (0.0-0.2); ABSOLUTE EOSINOPHILS # (AUTO) 0.1 10^3/uL (0.0-0.6); ABSOLUTE LYMPHOCYTES (AUTO) 1.2 10^3/uL (0.5-4.7); ABSOLUTE MONOCYTES (AUTO) 0.9 10^3/uL (0.1-1.4); ABSOLUTE NEUT (AUTO) 7.6 10^3/uL (1.7-8.2); BASOPHILS % (AUTO) 0.6 % (0-2); EOSINOPHILS % (AUTO) 1.3 % (0-6); HEMATOCRIT 34.8 % (36.0-47.0); HEMOGLOBIN 11.2 g/dL (12.0-15.5); HGB HCT DIFFERENCE -1.2; LYMPHOCYTES % (AUTO) 12.5 % (13-45); MEAN CORPUSCULAR HEMOGLOBIN 29.4 pg (27.0-33.4); MEAN CORPUSCULAR HGB CONC 32.2 g/dL (32.0-36.0); MEAN CORPUSCULAR VOLUME 91 fl (80-97); MONOCYTES % (AUTO) 8.9 % (3-13); RED BLOOD COUNT 3.81 10^6/uL (3.72-5.28); SEGMENTED NEUTROPHILS % (AUTO) 76.7 % (42-78); WHITE BLOOD COUNT 9.9 10^3/uL (4.0-10.5)
[2016-05-08 17:14] LABS: ALANINE AMINOTRANSFERASE 23 U/L (9-52); ALBUMIN 3.6 g/dL (3.5-5.0); ALKALINE PHOSPHATASE 63 U/L (38-126); ANION GAP 11 (5-19); ASPARTATE AMINO TRANSFERASE 13 U/L (14-36); BILIRUBIN,TOTAL 0.6 mg/dL (0.2-1.3); BLOOD UREA NITROGEN 13 mg/dL (7-20); CALCIUM 9.6 mg/dL (8.4-10.2); CARBON DIOXIDE 24 mmol/L (22-30); CHLORIDE 106 mmol/L (98-107); CREATININE RESULT 0.72 mg/dL (0.52-1.25); GLUCOSE 80 mg/dL (75-110); POTASSIUM 3.9 mmol/L (3.6-5.0); SODIUM 140.8 mmol/L (137-145); TOTAL PROTEIN 6.8 g/dL (6.3-8.2)
--- NOTE | 2016-05-08 17:42 | ER Document Report ---
ED GI/ - General Chief Complaint: Abdominal Pain Stated Complaint: ABDOMINAL PAIN,VOMITING,NAUSEA Mode of Arrival: Ambulatory Notes: Patient is complaining of Crohn's disease flare of pain. Patient says that she was first diagnosed with Crohn's at the age of [age] years old. She's had repeated hospitalizations for bowel obstructions. However, she has only required one surgery for a fistula in July last year. Patient was admitted here at this hospital on 04/15/16, and was in this hospital for 4 days with NG suction before being discharged. About 2 weeks ago. She currently takes Humira, every other week, but says is not helping. She was on a prednisone taper that she thinks helped for a while, but she has finished that taper of medications. Patient has been vomiting and has had some watery diarrhea. No fever. TRAVEL OUTSIDE OF THE [place] IN LAST 30 DAYS: No - Related Data Allergies/Adverse Reactions: ceftriaxone sodium [From Rocephin] Allergy (Severe, Verified 05/08/16 13:43) Anaphylaxis Ciprofloxacin Lactate [From Cipro I.V.] Allergy (Intermediate, Verified 13:43) Hives aspirin [Aspirin] Adverse Reaction (Intermediate, Verified 05/08/16 13:43) GI distress tramadol [Tramadol] Adverse Reaction (Intermediate, Verified 05/08/16 13:43) GI upset Home Medications: Current Home Medications Adalimumab [Humira] 40 mg SQ Q7D 05/08/16 [History] Past Medical History - General Information source: Patient - Social History Smoking Status: Current Every Day Smoker Chew tobacco use (# tins/day): No Frequency of alcohol use: None Drug Abuse: None Family History: Hypertension, Malignancy - Lung cancer and father Patient has suicidal ideation: No Patient has homicidal ideation: No Pulmonary Medical History: Reports: Hx Pneumonia Neurological Medical History: Denies: Hx Seizures GI Medical History: Reports: Hx Crohn's Disease Psychiatric Medical History: Reports: Hx Depression Past Surgical History: Reports: Hx Abdominal Surgery - fistula, Hx Tubal Ligation, Other - Exploratory laparoscopy and limited exploratory laparotomy in July 2015. - Immunizations Hx Diphtheria, Pertussis, Tetanus Vaccination: Yes Review of Systems - Review of Systems Notes: REVIEW OF SYSTEMS: CONSTITUTIONAL : Denies fever. EENT: Denies eye, ear, nose or mouth or throat pain or other symptoms. CARDIOVASCULAR: Denies chest pain. RESPIRATORY: Denies cough, chest congestion, or shortness of breath. GASTROINTESTINAL: Diffuse lower abdominal pain with some vomiting and watery diarrhea. GENITOURINARY: Denies difficulty or painful urinating, urinary frequency, blood in urine. MUSCULOSKELETAL: Denies back or neck pain. Denies joint pain or swelling. SKIN: Denies rash or skin lesions. NEUROLOGICAL: Denies LOC or altered mental status. Denies headache. Denies sensory loss or motor deficits. ALL OTHER SYSTEMS REVIEWED AND NEGATIVE. Physical Exam - Vital signs Vitals: Temp Pulse Resp BP Pulse Ox 97.8 F 104 H 28 H 125/86 H 100 05/08/16 13:41 05/08/16 13:41 05/08/16 13:41 05/08/16 13:41 05/08/16 13:41 Interpretation: Normal - Notes Notes: PHYSICAL EXAMINATION: GENERAL: Well-appearing, in no acute distress. HEAD: Atraumatic, normocephalic. ENT: oropharynx clear without exudates. Moist mucous membranes. NECK: Normal range of motion, supple. LUNGS: Breath sounds clear and equal bilaterally. HEART: Regular rate and rhythm without murmurs. ABDOMEN: Diffuse lower abdominal tenderness, possibly some guarding, no masses. Very little tenderness in the upper half of the abdomen. BACK: No tenderness throughout entire back. EXTREMITIES: Normal range of motion without pain. NEUROLOGICAL: Normal speech, normal gait. Normal sensory, motor, and reflex exams. Awake, alert, and oriented x3. Cranial nerves normal. PSYCH: Appears depressed. SKIN: Warm, dry, no rashes. Course - Re-evaluation Re-evalutation: 05/08/16 21:25 CT scan of the abdomen shows findings consistent with edema of the bowel structures and one area which could be redundant bowel or a walled off perforation. I called and spoke with Dr. Ahuja, who is on-call for surgery, and he will see the patient in the emergency department. I attempted to contact Dr. Mora, this patient's compotype operator, but there was no answer at his cell phone and I left a message asking he returned my call. I spoke with Dr. Miguel, who is on duty in the Main ED, to make him aware of what is the current plan of care. - Vital Signs Vital signs: Temp Pulse Resp BP Pulse Ox 97.5 F 74 16 106/69 100 05/09/16 03:10 05/09/16 03:10 05/09/16 03:10 05/09/16 03:10 05/09/16 03:10 - Laboratory Result Diagrams: 05/08/16 16:20 05/08/16 16:20 Laboratory results interpreted by me: 05/08/16 05/08/16 05/08/16 13:59 16:20 16:20 Hgb 11.2 L Hct 34.8 L RDW 15.0 H Plt Count 533 H Lymphocytes % 12.5 L AST 13 L Urine Ketones TRACE H Urine Urobilinogen 4.0 H Discharge - Discharge Clinical Impression: Abdominal pain Qualifiers: Abdominal location: lower abdomen, unspecified Qualified Code(s): R10.30 - Lower abdominal pain, unspecified Crohns disease Qualifiers: Gastrointestinal tract location: small and large intestine Digestive disease complication type: with intestinal obstruction Qualified Code(s): K50.812 - Crohn's disease of both small and large intestine with intestinal obstruction Condition: Fair Disposition: ADMITTED OBSERVATION Admitting Provider: Surgicalist Unit Admitted: Surgical Floor Referrals: SPENCER MICHAEL MD [Primary Care Provider] - Follow up as needed
[2016-05-09] MEDS ORDERED: ONDANSETRON HCL INJ/PF 4 MG/2 ML SDV IV PRN (00:03)
[2016-05-09] MEDS ORDERED: RINGERS SOLUTION,LACTATED 1,000 ML IV PRN (00:05)
--- NOTE | 2016-05-09 00:07 | PDOC H&P ---
History of Present Illness Admission Date/PCP: SPENCER MICHAEL MD History of Present Illness: ANALISA BOLAND is a 45 year old -Stateless female with history of Crohn' s disease diagnosed at age 10. She reports she was on Humira for approximately 1.5 years up until December 2015. She reports the Humira seem to work for approximately 12 months, but had little effect last 6 months. She had a severe flare of Crohn's in July 2015. She was taken to the operative suite in [place] at [facility] where exploratory laparoscopy and limited laparotomy was performed. An inflammatory mass involving the transverse colon also involved small bowel loops and stomach. Given the extensive involvement of her disease, no resection was performed. The patient was transferred to [facility]. No resection was performed there either. The patient continued to have intermittent Crohn's pain and weight loss. She was recently admitted at the beginning of April 2016 for a Crohn's flare with small bowel obstruction and was managed with an NG tube, nothing by mouth, IV fluids, and steroids were started once the NG tube was removed. Gastroenterology was consulted. The patient saw Dr. Dubois, who she has seen in the past. He started her on Humira. She received Humira shots the last 2 Mondays, 04/27/2016 and 05/04/2016. She reports the Humira had little effect on her pain. She finished her steroid burst and taper on 04/30/2016. The pain has been present for the last 2 weeks, but increased significantly this morning. The pain is sharp, 10/10, and is worse in her lower abdomen, which is typical for her. She denies fevers or chills, but reports nausea, vomiting, food fear, nonbloody diarrhea, back pain. She reports she is hungry, but is afraid to eat because it causes severe pain nausea and vomiting. She estimates her weight loss over the last 2 years at 45 pounds, going from 145 pounds down to 100 pounds in the ED today. CT scans performed since the July 2015 surgery have showed persistence of the inflammatory mass in the upper abdomen involving the colon as well as surrounding structures. The local mash filter cloth changer feels he has exhausted his treatment options and has attempted to refer her to [place]. No else in her family has had Crohn's disease ulcerative colitis or colon cancers. Past Medical History Cardiac Medical History: Denies: Myocardial Infarction, Hyperlipidema, Hypertension Pulmonary Medical History: Reports: Pneumonia Denies: Asthma, Bronchitis, Chronic Obstructive Pulmonary Disease (COPD), Tuberculosis Neurological Medical History: Denies: Seizures Endocrine Medical History: Denies: Diabetes Mellitus Type 2, Hyperthyroidism, Hypothyroidism GI Medical History: Reports: Crohn's Disease, Other - Weight loss Psychiatric Medical History: Reports: Depression Hematology: Reports: Anemia Past Surgical History Past Surgical History: Reports: Tubal Ligation, Other - Exploratory laparoscopy and limited exploratory laparotomy in July 2015. Denies: Hysterectomy, Pacemaker Social History Information Source: Patient Lives with: Family Smoking Status: Current Every Day Smoker Cigarettes Packs Per Day: 0.5 Frequency of Alcohol Use: None Hx Recreational Drug Use: No Drugs: None Hx Prescription Drug Abuse: No Family History Family History: Hypertension, Malignancy - Lung cancer in father Parental Family History Reviewed: Yes Children Family History Reviewed: Yes Sibling(s) Family History Reviewed.: Yes Medication/Allergy Home Medications: Adalimumab [Humira] 40 mg SQ Q7D 05/08/16 Allergies/Adverse Reactions: ceftriaxone sodium [From Rocephin] Allergy (Severe, Verified 05/08/16 13:43) Anaphylaxis Ciprofloxacin Lactate [From Cipro I.V.] Allergy (Intermediate, Verified 13:43) Hives morphine [Morphine] Allergy (Intermediate, Verified 05/08/16 13:43) Hives aspirin [Aspirin] Adverse Reaction (Intermediate, Verified 05/08/16 13:43) GI distress tramadol [Tramadol] Adverse Reaction (Intermediate, Verified 05/08/16 13:43) GI upset Review of Systems All systems: reviewed and no additional remarkable complaints except as stated Physical Exam Vital Signs: Temp Pulse Resp BP Pulse Ox 97.8 F 104 H 28 H 125/86 H 100 05/08/16 13:41 05/08/16 13:41 05/08/16 13:41 05/08/16 13:41 05/08/16 13:41 Intake & Output 05/07/16 05/08/16 05/09/16 06:59 06:59 06:59 Weight 45.5 kg General appearance: PRESENT: mild distress Head exam: PRESENT: normocephalic Eye exam: PRESENT: EOMI Mouth exam: PRESENT: tongue midline Neck exam: ABSENT: JVD, lymphadenopathy, tenderness, thyromegaly Respiratory exam: PRESENT: clear to auscultation radha Cardiovascular exam: PRESENT: RRR GI/Abdominal exam: PRESENT: firm, tenderness - Minor pain diffusely, moderate to severe pain in lower abdomen., other - Healed incision. ABSENT: distended, hernia, rebound Extremities exam: ABSENT: pedal edema, tenderness Musculoskeletal exam: ABSENT: deformity, tenderness Neurological exam: PRESENT: alert, oriented to person, oriented to place, oriented to time, oriented to situation Psychiatric exam: PRESENT: normal mood Skin exam: ABSENT: jaundice Results Laboratory Results: 05/08/16 16:20 05/08/16 16:20 05/08/16 05/08/16 05/08/16 13:59 16:20 16:20 WBC 9.9 RBC 3.81 Hgb 11.2 L Hct 34.8 L MCV 91 MCH 29.4 MCHC 32.2 RDW 15.0 H Plt Count 533 H Seg Neutrophils % 76.7 Lymphocytes % 12.5 L Monocytes % 8.9 Eosinophils % 1.3 Basophils % 0.6 Absolute Neutrophils 7.6 Absolute Lymphocytes 1.2 Absolute Monocytes 0.9 Absolute Eosinophils 0.1 Absolute Basophils 0.1 Sodium 140.8 Potassium 3.9 Chloride 106 Carbon Dioxide 24 Anion Gap 11 BUN 13 Creatinine 0.72 Est GFR ( Amer) > 60 Est GFR (Non-Af Amer) > 60 Glucose 80 Calcium 9.6 Total Bilirubin 0.6 AST 13 L ALT 23 Alkaline Phosphatase 63 Total Protein 6.8 Albumin 3.6 Lipase Urine Color YELLOW Urine Appearance SLIGHTLY-CLOUDY Urine pH 6.0 Ur Specific [place] 1.025 Urine Protein NEGATIVE Urine Glucose (UA) NEGATIVE Urine Ketones TRACE H Urine Blood NEGATIVE Urine Nitrite NEGATIVE Ur Leukocyte Esterase NEGATIVE Urine WBC (Auto) 4 Urine RBC (Auto) 3 05/08/16 16:20 WBC RBC Hgb Hct MCV MCH MCHC RDW Plt Count Seg Neutrophils % Lymphocytes % Monocytes % Eosinophils % Basophils % Absolute Neutrophils Absolute Lymphocytes Absolute Monocytes Absolute Eosinophils Absolute Basophils Sodium Potassium Chloride Carbon Dioxide Anion Gap BUN Creatinine Est GFR ( Amer) Est GFR (Non-Af Amer) Glucose Calcium Total Bilirubin AST ALT Alkaline Phosphatase Total Protein Albumin Lipase 59.8 Urine Color Urine Appearance Urine pH Ur Specific [place] Urine Protein Urine Glucose (UA) Urine Ketones Urine Blood Urine Nitrite Ur Leukocyte Esterase Urine WBC (Auto) Urine RBC (Auto) Impressions: Abdomen/Pelvis CT 05/08/16 00:00 IMPRESSION: MASSLIKE INFLAMMATORY CHANGE INVOLVING THE TRANSVERSE COLON WHICH IS SIMILAR TO PRIOR STUDIES WITH FOCAL OUTPOUCHING OF THE MESENTERIC BORDER WHICH MAY REPRESENT REDUNDANCY OF BOWEL VERSUS CONTAINED PERFORATION. NO FREE AIR, PNEUMATOSIS, OR EXTRAVASATION OF CONTRAST. FINDINGS PRESUMABLY REPRESENT FLARE OF KNOWN CROHN'S DISEASE HOWEVER RECOMMEND CORRELATION WITH COLONOSCOPY UNDERLYING MALIGNANCY SUCH ADENOCARCINOMA OR LYMPHOMA CANNOT BE EXCLUDED. Status: Image reviewed by me Assessment & Plan - Diagnosis (1) Crohns disease Qualifiers: Gastrointestinal tract location: small and large intestine Digestive disease complication type: with intestinal obstruction Qualified Code(s) : K50.812 - Crohn's disease of both small and large intestine with intestinal obstruction Is this a current diagnosis for this admission?: YesPlan: Patient with long history of refractory Crohn's disease. Currently with Crohn' s flare with obstruction. She has nausea, vomiting, nonbloody diarrhea and continued weight loss. The local mash filter cloth changer have been trying to refer her for advanced care to [place]. She has restarted on Humira recently, unsuccessfully. CT scan confirms persistence of a foregut inflammatory phlegmon. This seems to involve the transverse colon and stomach, and possibly small bowel as well. This is probably severe Crohn's disease in the transverse colon which secondarily has involved the stomach. Neoplasm cannot be ruled out. Ideally her disease would be brought under control, and this could be scoped and biopsied. In light of the lack of gastroenterology coverage, as well as the local mash filter cloth changer exhausting their options in seeking referral, I have contacted [facility] in [place] and requested transfer for the patient. Dr Bro has kindly accepted. While awaiting transfer she'll be managed in our emergency room with NG tube to low intermittent suction, IV Zofran, IV fluids, IV pain meds.
[2016-05-09] MEDS ORDERED: PHARMACY COMMUNICATION ORDER MC NR (00:15)
[2016-05-09] MEDS: HYDROMORPHONE HCL INJ/PF 2 MG/ML AMPULE IV PRN ×2 (00:53→03:15)
[2016-05-09 04:36] VITALS: BP 106/69
--- NOTE | 2016-05-09 07:42 | Progress Note ---
Provider Note Provider Note: RN called to inform she had assessed patient within 30 minutes of discharge and patient was stable. Pt then transported to [place] by ground.
== END 2016-05-09 03:15 | disposition admitted as inpatient to this hospital (09) ==
LOC: ER 13:29
DX: K50.812 Crohn's disease of both small and large intestine with intestinal obstruction (principal); R10.30 Lower abdominal pain, unspecified; R11.2 Nausea with vomiting, unspecified; F17.200 Nicotine dependence, unspecified, uncomplicated; Z88.6 Allergy status to analgesic agent; Z88.3 Allergy status to other anti-infective agents; Z98.51 Tubal ligation status
CPT/HCPCS: 96376; 99285; 96361; 96375; 96365; 96366; 36415; 83690; 85025; 80053; 81001; 74000; 74177; S0119; J1170 ×2; J2405 ×2; J7030; J7120

== ENCOUNTER 2016-05-24 13:21 | Emergency (ER) | payer MEDICAID ==
[2016-05-24] MEDS ORDERED: OXYCODONE-ACETAMINOPHEN 5-325 MG TABLET PO ONE (15:04)
[2016-05-24] MEDS ORDERED: ONDANSETRON 4 MG TAB.RAPDIS PO ONE (15:04)
--- NOTE | 2016-05-24 15:05 | ER Document Report ---
ED Medical Screen (RME) - General Stated Complaint: COUGH Time seen by provider: 15:02 Mode of Arrival: Medic Information source: Patient Notes: 45-year-old female complaining of low abdominal pain and low back pain. She thinks her Crohn's acting up she's having diarrhea without blood or mucus. She also has a cough. Her abdominal pain is 5/5. Vital signs are stable in triage. I have greeted and performed a rapid initial assessment of this patient. A comprehensive ED assessment, evaluation of the patient, analysis of test results , and completion of the medical decision making process will be contacted by additional ED providers. TRAVEL OUTSIDE OF THE [place] IN LAST 30 DAYS: No - Related Data Allergies/Adverse Reactions: ceftriaxone sodium [From Rocephin] Allergy (Severe, Verified 05/08/16 13:43) Anaphylaxis Ciprofloxacin Lactate [From Cipro I.V.] Allergy (Intermediate, Verified 13:43) Hives aspirin [Aspirin] Adverse Reaction (Intermediate, Verified 05/08/16 13:43) GI distress tramadol [Tramadol] Adverse Reaction (Intermediate, Verified 05/08/16 13:43) GI upset Past Medical History - Social History Family history: Reviewed & Not Pertinent - Past Medical History Cardiac Medical History: Denies: Hx Heart Attack, Hx Hypercholesterolemia, Hx Hypertension Pulmonary Medical History: Reports: Hx Pneumonia Denies: Hx Asthma, Hx Bronchitis, Hx COPD, Hx Tuberculosis Neurological Medical History: Denies: Hx Seizures Endocrine Medical History: Denies: Hx Diabetes Mellitus Type 2, Hx Hyperthyroidism, Hx Hypothyroidism Renal/ Medical History: Denies: Hx Peritoneal Dialysis GI Medical History: Reports: Hx Crohn's Disease Psychiatric Medical History: Reports: Hx Depression Past Surgical History: Reports: Hx Abdominal Surgery - fistula, Hx Tubal Ligation, Other - Exploratory laparoscopy and limited exploratory laparotomy in July 2015.. Denies: Hx Hysterectomy, Hx Pacemaker - Immunizations Hx Diphtheria, Pertussis, Tetanus Vaccination: Yes Physical Exam - Vital signs Vitals: Temp Pulse Resp BP Pulse Ox 99.5 F 96 24 H 114/71 98 05/24/16 14:39 05/24/16 14:39 05/24/16 14:39 05/24/16 14:39 05/24/16 14:39 Course - Vital Signs Vital signs: Temp Pulse Resp BP Pulse Ox 99.5 F 96 24 H 114/71 98 05/24/16 14:39 05/24/16 14:39 05/24/16 14:39 05/24/16 14:39 05/24/16 14:39
[2016-05-24 16:09] LABS: APPEARANCE,URINE HAZY; BILIRUBIN,URINE NEGATIVE (NEGATIVE); GLUCOSE, URINE NEGATIVE (NEGATIVE); KETONES,URINE NEGATIVE (NEGATIVE); LEUKOCYTE ESTERASE,URINE NEGATIVE (NEGATIVE); NITRITE,URINE NEGATIVE (NEGATIVE); PROTEIN,URINE 30 mg/dL (NEGATIVE)
[2016-05-24 16:10] LABS: ABSOLUTE LYMPHOCYTES (AUTO) 1.5 10^3/uL (0.5-4.7); ABSOLUTE MONOCYTES (AUTO) 0.9 10^3/uL (0.1-1.4); ABSOLUTE NEUT (AUTO) 7.5 10^3/uL (1.7-8.2); BASOPHILS % (AUTO) 0.5 % (0-2); HEMATOCRIT 39.3 % (36.0-47.0); HGB HCT DIFFERENCE -0.3; LYMPHOCYTES % (AUTO) 14.6 % (13-45); MEAN CORPUSCULAR HEMOGLOBIN 30.5 pg (27.0-33.4); MEAN CORPUSCULAR HGB CONC 33.1 g/dL (32.0-36.0); MEAN CORPUSCULAR VOLUME 92 fl (80-97); MONOCYTES % (AUTO) 9.4 % (3-13); RED BLOOD COUNT 4.26 10^6/uL (3.72-5.28); RED CELL DISTRIBUTION WIDTH 15.6 % (11.5-14.0); SEGMENTED NEUTROPHILS % (AUTO) 75.5 % (42-78)
[2016-05-24 16:12] LABS: URINE SPECIFIC GRAVITY 1.029
[2016-05-24 16:26] LABS: ALANINE AMINOTRANSFERASE 29 U/L (9-52); ALKALINE PHOSPHATASE 58 U/L (38-126); ANION GAP 15 (5-19); ASPARTATE AMINO TRANSFERASE 27 U/L (14-36); BILIRUBIN,TOTAL 0.8 mg/dL (0.2-1.3); BLOOD UREA NITROGEN 25 mg/dL (7-20); CALCIUM 9.4 mg/dL (8.4-10.2); CARBON DIOXIDE 20 mmol/L (22-30); CHLORIDE 102 mmol/L (98-107); CREATININE RESULT 0.89 mg/dL (0.52-1.25); GLUCOSE 92 mg/dL (75-110); LIPASE 110.1 U/L (23-300); POTASSIUM 4.4 mmol/L (3.6-5.0); SODIUM 137.3 mmol/L (137-145); TOTAL PROTEIN 7.4 g/dL (6.3-8.2)
[2016-05-24] MEDS ORDERED: NORMAL SALINE 1000 ML 1,000 ML IV ONE ×2 (19:42→19:43)
[2016-05-24] MEDS ORDERED: HYDROMORPHONE HCL INJ/PF 2 MG/ML AMPULE IV ONE (19:42)
[2016-05-24] MEDS ORDERED: METHYLPREDNISOLONE INJ 125 MG/2 ML SDV IV ONE (19:42)
--- NOTE | 2016-05-24 19:45 | ER Document Report ---
ED General - General Chief Complaint: Abdominal Pain Stated Complaint: COUGH Time seen by provider: 19:40 Mode of Arrival: Medic Notes: Patient is a 45-year-old female that comes emergency department for chief complaint of a cough and chills for 1 week, she states that she has had decreased appetite and has had difficulty eating/drinking and feels like she is dehydrated. She states that every time she coughs she has pain in her abdomen, she has a history of Crohn's disease, she states that she has a follow-up with Dr. Cedeno in [place] but is currently not on any treatment for Crohn's. Patient states she had a normal bowel movement earlier today, she states she has not vomited today, vomited several days ago. TRAVEL OUTSIDE OF THE [place] IN LAST 30 DAYS: No - Related Data Allergies/Adverse Reactions: ceftriaxone sodium [From Rocephin] Allergy (Severe, Verified 05/08/16 13:43) Anaphylaxis Ciprofloxacin Lactate [From Cipro I.V.] Allergy (Intermediate, Verified 13:43) Hives aspirin [Aspirin] Adverse Reaction (Intermediate, Verified 05/08/16 13:43) GI distress tramadol [Tramadol] Adverse Reaction (Intermediate, Verified 05/08/16 13:43) GI upset Past Medical History - General Information source: Patient - Social History Smoking Status: Never Smoker Frequency of alcohol use: None Lives with: Family Family History: Hypertension, Malignancy - Lung cancer and father Patient has suicidal ideation: No Patient has homicidal ideation: No - Past Medical History Cardiac Medical History: Denies: Hx Heart Attack, Hx Hypercholesterolemia, Hx Hypertension Pulmonary Medical History: Reports: Hx Pneumonia Denies: Hx Asthma, Hx Bronchitis, Hx COPD, Hx Tuberculosis Neurological Medical History: Denies: Hx Seizures Endocrine Medical History: Denies: Hx Diabetes Mellitus Type 2, Hx Hyperthyroidism, Hx Hypothyroidism Renal/ Medical History: Denies: Hx Peritoneal Dialysis GI Medical History: Reports: Hx Crohn's Disease Psychiatric Medical History: Reports: Hx Depression Past Surgical History: Reports: Hx Abdominal Surgery - fistula, Hx Tubal Ligation, Other - Exploratory laparoscopy and limited exploratory laparotomy in July 2015.. Denies: Hx Hysterectomy, Hx Pacemaker - Immunizations Hx Diphtheria, Pertussis, Tetanus Vaccination: Yes Review of Systems - Review of Systems Constitutional: No symptoms reported EENT: No symptoms reported Cardiovascular: No symptoms reported Respiratory: See HPI Gastrointestinal: See HPI Genitourinary: No symptoms reported Female Genitourinary: No symptoms reported Musculoskeletal: No symptoms reported Skin: No symptoms reported Hematologic/Lymphatic: No symptoms reported Neurological/Psychological: No symptoms reported Physical Exam - Vital signs Vitals: Temp Pulse Resp BP Pulse Ox 99.5 F 96 24 H 114/71 98 05/24/16 14:39 05/24/16 14:39 05/24/16 14:39 05/24/16 14:39 05/24/16 14:39 Interpretation: Normal - General General appearance: Alert, Anxious In distress: Mild - Patient appears uncomfortable, coughing regularly - HEENT Head: Normocephalic, Atraumatic Eyes: Normal Conjunctiva: Normal Extraocular movements intact: Yes Eyelashes: Normal Pupils: PERRL Sinus: Normal Nasal: Normal Mouth/Lips: Normal Mucous membranes: Normal Pharynx: Normal Neck: Normal - Respiratory Respiratory status: No respiratory distress. No: Respiratory distress, Labored , Tachypnea - No tachypnea on my exam Chest status: Nontender Breath sounds: Normal, Nonproductive cough - Frequent cough. No: Rales, Rhonchi , Stridor, Wheezing Chest palpation: Normal - Cardiovascular Rhythm: Regular. No: Tachycardia Heart sounds: Normal auscultation, S1 appreciated, S2 appreciated Murmur: No - Abdominal Inspection: Normal Distension: No distension. No: Distended Bowel sounds: Normal Tenderness: Nontender, Tender - Very mild generalized tenderness, nonspecific, no guarding. No: Guarding - Back Back: Normal, Nontender. No: Tender - Extremities General upper extremity: Normal inspection, Nontender, Normal ROM, Normal strength General lower extremity: Normal inspection, Nontender, Normal ROM, Normal strength - Neurological Neuro grossly intact: Yes Cognition: Normal Orientation: AAOx4 [place] Coma Scale Eye Opening: Spontaneous Fredy Coma Scale Verbal: Oriented [place] Coma Scale Motor: Obeys Commands [place] Coma Scale Total: 15 Speech: Normal Motor strength normal: LUE, RUE, LLE, RLE Sensory: Normal - Psychological Associated symptoms: Normal affect, Normal mood - Skin Skin Temperature: Warm Skin Moisture: Dry Skin Color: Normal Course - Re-evaluation Re-evalutation: After medications patient smiling, sitting up, provided with by mouth fluids which she drank and did not vomit. Patient has fairly persistent nonproductive cough with occasional mucus production, cough has been present for about a week , no pneumonia on chest x-ray, no leukocytosis. Bicarbonate is slightly low elevated specific gravity in urine, consistent with dehydration. Patient given 2 boluses of IV fluids. Abdomen is soft and unremarkable, no evidence of obstruction or acute abdomen based on examination, vital signs, and workup. 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 Discussed return precautions including return or severe abdominal pain, bloody bowel movements, shortness of breath, etc. Patient states understanding and agreement. - Vital Signs Vital signs: Temp Pulse Resp BP Pulse Ox 98.6 F 90 16 94/61 L 98 05/25/16 00:43 05/25/16 00:43 05/25/16 00:43 05/25/16 00:43 05/25/16 00:43 - Laboratory Result Diagrams: 05/24/16 15:27 05/24/16 15:27 Laboratory results interpreted by me: 05/24/16 05/24/16 05/24/16 15:27 15:27 15:27 RDW 15.6 H Carbon Dioxide 20 L BUN 25 H Urine Protein 30 H Urine Urobilinogen 4.0 H Urine Ascorbic Acid 40 H Discharge - Discharge Clinical Impression: Cough, Dehydration Abdominal pain Qualifiers: Abdominal location: unspecified location Qualified Code(s): R10.9 - Unspecified abdominal pain Condition: Stable Disposition: HOME, SELF-CARE Additional Instructions: Your chest x-ray does not show pneumonia, your workup indicates dehydration. Continue oral rehydration, take the nausea medication as prescribed, take pain medication if needed, take the prednisone as directed, take the azithromycin antibiotic as directed for productive cough. Follow-up with your karate instructor and primary care as planned. Return to emergency department for any concerning or worsening symptoms - shortness of breath, spiking fever, severe abdominal pain, bloody stools, etc. Prescriptions: Azithromycin [Zithromax 250 mg Tablet] 250 mg PO ASDIR PRN #6 tablet PRN Reason: Oxycodone HCl/Acetaminophen [Percocet 5-325 mg Tablet] 1 - 2 tab PO Q4H PRN #15 tablet PRN Reason: Prednisone 20 mg PO DAILY #15 tablet Promethazine HCl [Phenergan 25 mg Tablet] 1 - 2 tab PO Q6H PRN #20 tablet PRN Reason: Referrals: OREN SEYMOUR MD [Primary Care Provider] - Follow up as needed
[2016-05-24] MEDS ORDERED: ONDANSETRON HCL INJ/PF 4 MG/2 ML SDV IV ONE (22:06)
[2016-05-25] MEDS ORDERED: HYDROMORPHONE HCL INJ/PF 2 MG/ML AMPULE IM ONE (00:07)
[2016-05-25 00:51] VITALS: BP 94/61
== END 2016-05-25 00:50 | disposition home or self-care (01) ==
LOC: ER 13:21
DX: R05 Cough (principal); E86.0 Dehydration; R10.9 Unspecified abdominal pain; R63.0 Anorexia
CPT/HCPCS: 96376; 99284; 96361; 96374; 96375; 36415; 87086; 83690; 84703; 85025; 80053; 81001; 71020; S0119; J2930; J1170 ×2; J2405; J7030

== ENCOUNTER 2016-08-06 11:21 | Inpatient (IN) | payer MEDICAID ==
[2016-08-06] MEDS ORDERED: KETOROLAC TROMETHAMINE INJ/PF 30 MG/1 ML SDV IV ONE (12:04)
--- NOTE | 2016-08-06 12:04 | ER Document Report ---
ED GI/ - General Time seen by provider: 12:00 Mode of Arrival: Ambulatory Information source: Patient TRAVEL OUTSIDE OF THE [place] IN LAST 30 DAYS: No - HPI Patient complains to provider of: Abdominal pain Onset: Other - see HPI note Similar symptoms previously: Yes Recently seen / treated by doctor: No <KRISTI WALSH - Last Filed: 08/06/16 12:49> <GEOVANI GARCIA - Last Filed: 08/06/16 13:58> - General Chief Complaint: Abdominal Pain Stated Complaint: ABDOMINAL PAIN,VOMITING Notes: Patient is a 45 year old female presenting to the ED for a Crohn's flareup. Patient does not have a primary care physician because she is self-pay. Patient states she was sent to [facility] or [facility] in the past for her Crohn's. Patient states it is difficult for her to get around to get to a doctor. Patient was seen Dr. Joiner for her crohn's but she states she "let him go" because he was not managing her pain. Patient states that she has been on steroids before and she has not seen a primary long term care social worker doctor for her Crohn's in years. (KRISTI WALSH) - Related Data Allergies/Adverse Reactions: ceftriaxone sodium [From Rocephin] Allergy (Severe, Verified 08/06/16 11:55) Anaphylaxis Ciprofloxacin Lactate [From Cipro I.V.] Allergy (Intermediate, Verified 11:55) Hives morphine Allergy (Verified 08/06/16 11:55) aspirin [Aspirin] Adverse Reaction (Intermediate, Verified 08/06/16 11:55) GI distress tramadol [Tramadol] Adverse Reaction (Intermediate, Verified 08/06/16 11:55) GI upset Past Medical History - General Information source: Patient - Social History Smoking Status: Unknown if Ever Smoked Family History: Hypertension, Malignancy - Lung cancer and father Patient has suicidal ideation: No Patient has homicidal ideation: No Pulmonary Medical History: Reports: Hx Pneumonia GI Medical History: Reports: Hx Crohn's Disease Psychiatric Medical History: Reports: Hx Depression Past Surgical History: Reports: Hx Abdominal Surgery - fistula, Hx Tubal Ligation, Other - Exploratory laparoscopy and limited exploratory laparotomy in July 2015. - Immunizations Hx Diphtheria, Pertussis, Tetanus Vaccination: Yes <KRISTI WALSH - Last Filed: 08/06/16 12:49> Review of Systems - Review of Systems Constitutional: No symptoms reported EENT: No symptoms reported Cardiovascular: No symptoms reported Respiratory: No symptoms reported Gastrointestinal: See HPI Genitourinary: No symptoms reported Female Genitourinary: No symptoms reported Musculoskeletal: No symptoms reported Skin: No symptoms reported Hematologic/Lymphatic: No symptoms reported Neurological/Psychological: No symptoms reported -: Yes All other systems reviewed and negative <KRISTI WALSH - Last Filed: 08/06/16 12:49> Physical Exam - Vital signs Interpretation: Normal - General General appearance: Appears well, Alert In distress: Mild - HEENT Head: Normocephalic, Atraumatic Eyes: Normal Pupils: PERRL Mucous membranes: Moist - Respiratory Respiratory status: No respiratory distress Chest status: Nontender Breath sounds: Normal Chest palpation: Normal - Cardiovascular Rhythm: Regular Heart sounds: Normal auscultation Murmur: No - Abdominal Inspection: Normal Distension: No distension Bowel sounds: Normal Tenderness: Nontender, Other - Patient jumps before being touched during examination, patient has no tenderness, guarding, rebound, guarding, rigidity Organomegaly: No organomegaly - Back Back: Normal, Nontender - Extremities General upper extremity: Normal inspection, Normal ROM, Normal strength General lower extremity: Normal inspection, Normal ROM, Normal strength - Neurological Neuro grossly intact: Yes Cognition: Normal Orientation: AAOx4 [place] Coma Scale Eye Opening: Spontaneous Fredy Coma Scale Verbal: Oriented Fredy Coma Scale Motor: Obeys Commands [place] Coma Scale Total: 15 Speech: Normal - Psychological Associated symptoms: Normal affect, Normal mood - Skin Skin Temperature: Warm Skin Moisture: Dry <KRISTI WALSH - Last Filed: 08/06/16 12:49> <GEOVANI GARCIA - Last Filed: 08/06/16 13:58> - Vital signs Vitals: Temp Pulse Resp BP Pulse Ox 98.4 F 99 24 H 114/86 H 100 08/06/16 11:34 08/06/16 11:34 08/06/16 11:34 08/06/16 11:34 08/06/16 11:34 Course - Laboratory Result Diagrams: 08/06/16 12:41 08/06/16 12:41 <KRISTI WALSH - Last Filed: 08/06/16 12:49> - Laboratory Result Diagrams: 08/06/16 12:41 08/06/16 12:41 <GEOVANI GARCIA - Last Filed: 08/06/16 13:58> - Re-evaluation Re-evalutation: 08/06/16 13:56 Patient with extensive history of Crohn's disease noncompliant on all of her medications fired her local GI specialist because he wouldn't give her chronic pain medication. Says that each time she comes here she is transferred either [facility] [place] but she can't get to her follow-up appointments and isn't currently taking any medication for it. Describes this flareup is coming on for the last [address] scan shows questionable small bowel obstruction was done with IV contrast. Patient on examination has diffuse tenderness but no guarding rebound rigidity. We'll send her to the back further evaluation possible surgical consultation and disposition. (GEOVANI GARCIA) - Vital Signs Vital signs: Temp Pulse Resp BP Pulse Ox 98.4 F 99 24 H 114/86 H 100 08/06/16 11:34 08/06/16 11:34 08/06/16 11:34 08/06/16 11:34 08/06/16 11:34 - Laboratory Laboratory results interpreted by me: 08/06/16 12:41 RDW 16.0 H Discharge <KRISTI WALSH - Last Filed: 08/06/16 12:49> <GEOVANI GARCIA - Last Filed: 08/06/16 13:58> - Discharge Clinical Impression: RME exam Condition: Stable Scribe Attestation: 08/06/16 13:58 I personally performed the services described in the documentation reviewed the documentation recorded by my scribe in my presence and it accurately and completely records my words and actions (GEOVANI GARCIA) Scribe Documentation - Scribe Written by Scribkinjal:: Kristi Walsh 08/06/16 12:55 acting as scribe for :: Floyd <KRISTI WALSH - Last Filed: 08/06/16 12:49>
[2016-08-06] MEDS ORDERED: ONDANSETRON HCL INJ/PF 4 MG/2 ML SDV IV ONE (12:05)
[2016-08-06 12:50] LABS: ABSOLUTE BASOPHILS # (AUTO) 0.1 10^3/uL (0.0-0.2); ABSOLUTE EOSINOPHILS # (AUTO) 0.2 10^3/uL (0.0-0.6); ABSOLUTE LYMPHOCYTES (AUTO) 1.6 10^3/uL (0.5-4.7); ABSOLUTE MONOCYTES (AUTO) 0.8 10^3/uL (0.1-1.4); BASOPHILS % (AUTO) 0.7 % (0-2); EOSINOPHILS % (AUTO) 2.1 % (0-6); HEMATOCRIT 38.1 % (36.0-47.0); HEMOGLOBIN 12.8 g/dL (12.0-15.5); HGB HCT DIFFERENCE 0.3; LYMPHOCYTES % (AUTO) 16.9 % (13-45); MEAN CORPUSCULAR HEMOGLOBIN 29.9 pg (27.0-33.4); MEAN CORPUSCULAR HGB CONC 33.5 g/dL (32.0-36.0); MEAN CORPUSCULAR VOLUME 89 fl (80-97); RED BLOOD COUNT 4.27 10^6/uL (3.72-5.28); SEGMENTED NEUTROPHILS % (AUTO) 72.3 % (42-78); WHITE BLOOD COUNT 9.6 10^3/uL (4.0-10.5)
[2016-08-06 13:13] LABS: ANION GAP 13 (5-19); BLOOD UREA NITROGEN 15 mg/dL (7-20); CARBON DIOXIDE 25 mmol/L (22-30); CHLORIDE 106 mmol/L (98-107); CREATININE RESULT 0.71 mg/dL (0.52-1.25); GLUCOSE 81 mg/dL (75-110); LIPASE 26.9 U/L (23-300); SODIUM 143.6 mmol/L (137-145)
[2016-08-06] MEDS ORDERED: HYDROMORPHONE HCL INJ/PF 2 MG/ML AMPULE IV ONE (15:56)
[2016-08-06] MEDS ORDERED: NORMAL SALINE 1000 ML 1,000 ML IV ONE (15:56)
--- NOTE | 2016-08-06 16:11 | ER Document Report ---
ED GI/ - General Chief Complaint: Abdominal Pain Stated Complaint: ABDOMINAL PAIN,VOMITING Mode of Arrival: Ambulatory Information source: Patient Notes: Patient reports that she has a history of Crohn's and has been having lower abdominal pain for the past month. Patient states that the pain has recently worsened over the past 2 days and she has had nausea with vomiting 4 episodes today and diarrhea 5 episodes. Patient denies any fever or blood in her stools. Patient denies any cough or cold symptoms. Patient denies any urinary symptoms, vaginal bleeding or discharge. Does report significant weight loss over the past year. TRAVEL OUTSIDE OF THE [place] IN LAST 30 DAYS: No - HPI Patient complains to provider of: Abdominal pain, Diarrhea, Vomiting Onset: Other - Worse over the past 2 days Timing/Duration: Worse Quality of pain: Cramping, Sharp Pain Level: 5 Location: Pelvis Vaginal bleeding (Compared to normal period): None Associated symptoms: Diarrhea, Nausea, Vomiting. denies: Blood in emesis, Blood in stool, Urinary hesitancy, Urinary frequency, Urinary retention, Urinary urgency, Vaginal discharge Exacerbated by: Denies Relieved by: Denies Similar symptoms previously: Yes Recently seen / treated by doctor: No - Related Data Allergies/Adverse Reactions: ceftriaxone sodium [From Rocephin] Allergy (Severe, Verified 08/06/16 11:55) Anaphylaxis Ciprofloxacin Lactate [From Cipro I.V.] Allergy (Intermediate, Verified 11:55) Hives morphine Allergy (Verified 08/06/16 11:55) aspirin [Aspirin] Adverse Reaction (Intermediate, Verified 08/06/16 11:55) GI distress tramadol [Tramadol] Adverse Reaction (Intermediate, Verified 08/06/16 11:55) GI upset Home Medications: Current Home Medications No Home Medications 08/06/16 [History] Past Medical History - General Information source: Patient - Social History Smoking Status: Unknown if Ever Smoked Frequency of alcohol use: None Drug Abuse: Cocaine Occupation: delivers papers Family History: Hypertension, Malignancy - Lung cancer and father Patient has suicidal ideation: No Patient has homicidal ideation: No - Past Medical History Cardiac Medical History: Denies: Hx Heart Attack, Hx Hypercholesterolemia, Hx Hypertension Pulmonary Medical History: Reports: Hx Pneumonia Denies: Hx Asthma, Hx Bronchitis, Hx COPD, Hx Tuberculosis Neurological Medical History: Denies: Hx Seizures Endocrine Medical History: Denies: Hx Diabetes Mellitus Type 2, Hx Hyperthyroidism, Hx Hypothyroidism Renal/ Medical History: Denies: Hx Peritoneal Dialysis GI Medical History: Reports: Hx Crohn's Disease Psychiatric Medical History: Reports: Hx Depression Past Surgical History: Reports: Hx Abdominal Surgery - fistula, Hx Tubal Ligation, Other - Exploratory laparoscopy and limited exploratory laparotomy in July 2015.. Denies: Hx Hysterectomy, Hx Pacemaker - Immunizations Hx Diphtheria, Pertussis, Tetanus Vaccination: Yes Review of Systems - Review of Systems Constitutional: Weight loss. denies: Fever EENT: No symptoms reported Cardiovascular: No symptoms reported. denies: Chest pain Respiratory: No symptoms reported. denies: Cough, Short of breath Gastrointestinal: Abdominal pain, Diarrhea, Nausea, Vomiting, Poor appetite. denies: Constipation, Blood streaked bowels, Black stools, Rectal bleeding Genitourinary: No symptoms reported. denies: Dysuria, Flank pain Female Genitourinary: No symptoms reported. denies: Vaginal discharge, Vaginal bleeding Musculoskeletal: No symptoms reported. denies: Back pain Skin: No symptoms reported Hematologic/Lymphatic: No symptoms reported Neurological/Psychological: No symptoms reported Physical Exam - Vital signs Vitals: Temp Pulse Resp BP Pulse Ox 98.4 F 99 24 H 114/86 H 100 08/06/16 11:34 08/06/16 11:34 08/06/16 11:34 08/06/16 11:34 08/06/16 11:34 - General General appearance: Alert In distress: Mild - HEENT Head: Normocephalic, Atraumatic Eyes: Normal Nasal: Normal Mouth/Lips: Normal Mucous membranes: Normal Neck: Normal, Supple. No: Lymphadenopathy - Respiratory Respiratory status: No respiratory distress Chest status: Nontender Breath sounds: Normal. No: Rales, Rhonchi, Stridor, Wheezing Chest palpation: Normal - Cardiovascular Rhythm: Regular Heart sounds: S1 appreciated, S2 appreciated Murmur: No - Abdominal Inspection: Normal Distension: No distension Bowel sounds: Normal Tenderness: Tender - Lower abdominal tenderness Organomegaly: No organomegaly - Back Back: Normal, Nontender. No: CVA tenderness - Extremities General upper extremity: Normal inspection, Normal ROM General lower extremity: Normal inspection, Normal ROM - Neurological Neuro grossly intact: Yes Cognition: Normal Fredy Coma Scale Eye Opening: Spontaneous [place] Coma Scale Verbal: Oriented [place] Coma Scale Motor: Obeys Commands Fredy Coma Scale Total: 15 - Psychological Associated symptoms: Angry - Skin Skin Temperature: Warm Skin Moisture: Dry Skin Color: Normal Course - Re-evaluation Re-evalutation: 08/06/16 16:[address] Bradshaw and reviewed patient's diagnostic test results. Recommends consultation with hospitalist for admission for a Crohn's flareup Consulted with Dr. Short regarding patient presentation, agrees to accept patient for admission to medical floor. Discussed planning care with patient. Patient states that she will talk with Dr. Short, but is not certain that she is able to stay here for admission. - Vital Signs Vital signs: Temp Pulse Resp BP Pulse Ox 97.8 F 75 16 114/80 100 08/06/16 18:03 08/06/16 18:03 08/06/16 18:03 08/06/16 18:03 08/06/16 16:42 - Laboratory Result Diagrams: 08/06/16 12:41 08/06/16 12:41 Laboratory results interpreted by me: 08/06/16 08/06/16 12:41 15:45 RDW 16.0 H Urine Urobilinogen 2.0 H 08/06/16 16:17 Labs- Entire Visit 08/06/16 08/06/16 12:41 12:41 WBC 9.6 RBC 4.27 Hgb 12.8 Hct 38.1 MCV 89 MCH 29.9 MCHC 33.5 RDW 16.0 H Plt Count 422 Seg Neutrophils % 72.3 Lymphocytes % 16.9 Monocytes % 8.0 Eosinophils % 2.1 Basophils % 0.7 Absolute Neutrophils 7.0 Absolute Lymphocytes 1.6 Absolute Monocytes 0.8 Absolute Eosinophils 0.2 Absolute Basophils 0.1 Sodium 143.6 Potassium 4.0 Chloride 106 Carbon Dioxide 25 Anion Gap 13 BUN 15 Creatinine 0.71 Est GFR ( Amer) > 60 Est GFR (Non-Af Amer) > 60 Glucose 81 Calcium 9.0 Lipase 26.9 08/06/16 19:45 Labs- Entire Visit 08/06/16 08/06/16 08/06/16 12:41 12:41 15:45 WBC 9.6 RBC 4.27 Hgb 12.8 Hct 38.1 MCV 89 MCH 29.9 MCHC 33.5 RDW 16.0 H Plt Count 422 Seg Neutrophils % 72.3 Lymphocytes % 16.9 Monocytes % 8.0 Eosinophils % 2.1 Basophils % 0.7 Absolute Neutrophils 7.0 Absolute Lymphocytes 1.6 Absolute Monocytes 0.8 Absolute Eosinophils 0.2 Absolute Basophils 0.1 Sodium 143.6 Potassium 4.0 Chloride 106 Carbon Dioxide 25 Anion Gap 13 BUN 15 Creatinine 0.71 Est GFR ( Amer) > 60 Est GFR (Non-Af Amer) > 60 Glucose 81 Calcium 9.0 Lipase 26.9 Urine Color YELLOW Urine Appearance SLIGHTLY-CLOUDY Urine pH 6.0 Ur Specific [place] > 1.060 Urine Protein NEGATIVE Urine Glucose (UA) NEGATIVE Urine Ketones NEGATIVE Urine Blood NEGATIVE Urine Nitrite NEGATIVE Urine Bilirubin NEGATIVE Urine Urobilinogen 2.0 H Ur Leukocyte Esterase NEGATIVE Urine WBC (Auto) 0 Urine RBC (Auto) 8 Squamous Epi Cells Auto 18 Urine Mucus (Auto) RARE Urine Ascorbic Acid NEGATIVE Urine Opiates Screen Urine Methadone Screen Ur Barbiturates Screen Ur Phencyclidine Scrn Ur Amphetamines Screen U Benzodiazepines Scrn Urine Cocaine Screen U Marijuana (THC) Screen 08/06/16 15:45 WBC RBC Hgb Hct MCV MCH MCHC RDW Plt Count Seg Neutrophils % Lymphocytes % Monocytes % Eosinophils % Basophils % Absolute Neutrophils Absolute Lymphocytes Absolute Monocytes Absolute Eosinophils Absolute Basophils Sodium Potassium Chloride Carbon Dioxide Anion Gap BUN Creatinine Est GFR ( Amer) Est GFR (Non-Af Amer) Glucose Calcium Lipase Urine Color Urine Appearance Urine pH Ur Specific [place] Urine Protein Urine Glucose (UA) Urine Ketones Urine Blood Urine Nitrite Urine Bilirubin Urine Urobilinogen Ur Leukocyte Esterase Urine WBC (Auto) Urine RBC (Auto) Squamous Epi Cells Auto Urine Mucus (Auto) Urine Ascorbic Acid Urine Opiates Screen NEGATIVE Urine Methadone Screen NEGATIVE Ur Barbiturates Screen NEGATIVE Ur Phencyclidine Scrn NEGATIVE Ur Amphetamines Screen NEGATIVE U Benzodiazepines Scrn NEGATIVE Urine Cocaine Screen UNCONFIRMED POSITIVE U Marijuana (THC) Screen NEGATIVE - Diagnostic Test Radiology reviewed: Reports reviewed Discharge - Discharge Clinical Impression: Nausea vomiting and diarrhea Crohns disease Qualifiers: Gastrointestinal tract location: small and large intestine Digestive disease complication type: with intestinal obstruction Qualified Code(s): K50.812 - Crohn's disease of both small and large intestine with intestinal obstruction Abdominal pain Qualifiers: Abdominal location: unspecified location Qualified Code(s): R10.9 - Unspecified abdominal pain Admitting Provider: Hospitalist Unit Admitted: Medical Floor Lutheribe Attestation: 08/06/16 13:58 I personally performed the services described in the documentation reviewed the documentation recorded by my scribe in my presence and it accurately and completely records my words and actions
[2016-08-06 16:22] LABS: URINE BARBITURATES SCREEN NEGATIVE; URINE METHADONE SCREEN NEGATIVE; URINE OPIATES LOW NEGATIVE; URINE PHENCYCLIDINE SCREEN NEGATIVE
[2016-08-06 16:47] LABS: APPEARANCE,URINE SLIGHTLY-CLOUDY; BILIRUBIN,URINE NEGATIVE (NEGATIVE); GLUCOSE, URINE NEGATIVE (NEGATIVE); KETONES,URINE NEGATIVE (NEGATIVE); LEUKOCYTE ESTERASE,URINE NEGATIVE (NEGATIVE); NITRITE,URINE NEGATIVE (NEGATIVE); PROTEIN,URINE NEGATIVE (NEGATIVE)
[2016-08-06 16:50] LABS: URINE SPECIFIC GRAVITY > 1.060
[2016-08-06] MEDS ORDERED: ONDANSETRON HCL INJ/PF 4 MG/2 ML SDV IV PRN (18:04)
[2016-08-06] MEDS ORDERED: ACETAMINOPHEN 325 MG TABLET PO PRN (18:04)
[2016-08-06] MEDS ORDERED: PROMETHAZINE HCL 25 MG SUPP.RECT PR PRN (18:04)
[2016-08-06] MEDS ORDERED: METHYLPREDNISOLONE INJ 40 MG/1 ML SDV IV ONE (18:30)
--- NOTE | 2016-08-06 18:35 | PDOC H&P ---
History of Present Illness Admission Date/PCP: 08/06/16 16:41 Primary care provider: Dr. Hernandez Patient complains of: Abdominal pain History of Present Illness: ANALISA BOLAND is a 45 year old female with a long-standing history of Crohn's disease. She was hospitalized at our facility last year and taken to the operating room for an exploratory laparotomy. Unfortunately they were not able to complete the surgery and they sent her urgently to [place]. Since that time she has had ongoing issues with abdominal pain and multiple hospitalizations. Her last hospitalization she reports was about a month ago. She states over the past several days he abdominal pain has become unbearable. She is having multiple episodes of vomiting over the past 24 hours. She also is having diarrhea which is chronic for her but it is increased in frequency up to 4-5 times a day. In the emergency room her lab work was unremarkable. CT scan of the abdomen and pelvis revealed evidence of a partial small bowel obstruction and she was referred for admission. Past Medical History Cardiac Medical History: Reports: None Denies: Myocardial Infarction, Hyperlipidema, Hypertension Pulmonary Medical History: Reports: None, Pneumonia Denies: Asthma, Bronchitis, Chronic Obstructive Pulmonary Disease (COPD), Tuberculosis EENT Medical History: Reports: None Neurological Medical History: Reports: None Denies: Seizures Endocrine Medical History: Reports: None Denies: Diabetes Mellitus Type 2, Hyperthyroidism, Hypothyroidism Renal/ Medical History: Reports: None Malignancy Medical History: Reports: None GI Medical History: Reports: Crohn's Disease, Other - Poorly controlled with multiple hospitalizations for flares Musculoskeltal Medical History: Reports: None Skin Medical History: Reports: None Psychiatric Medical History: Reports: Alcohol Dependency - She has a history of alcohol abuse in the past but states she does not drink at this time. She also denies illicit drug use but is positive on her urine drug screen for cocaine, Depression, Substance Abuse Traumatic Medical History: Reports: None Hematology: Reports: Anemia Denies: Sickle Cell Disease, Bleeding Tendencies, Neutropenia Infectious Medical History: Reports: None Denies: Clostridium Difficile Past Surgical History Past Surgical History: Reports: Tubal Ligation, Other - Exploratory laparoscopy and limited exploratory laparotomy in July 2015. Denies: Hysterectomy, Pacemaker Social History Information Source: Patient Occupation: Newspaper delivery Lives with: Family Smoking Status: Former Smoker Frequency of Alcohol Use: None Last Alcohol Use: 07/11/14 - unknown but she states it is been a few years Hx Recreational Drug Use: No Drugs: Cocaine - She denies illicit drug use but is cocaine positive on her urine drug screen Hx Prescription Drug Abuse: No Past Social History Note: Family History Family History: Hypertension, Malignancy - Lung cancer and father Parental Family History Reviewed: Yes Children Family History Reviewed: NA Sibling(s) Family History Reviewed.: Unknown Medication/Allergy Home Medications: No Home Medications 08/06/16 Allergies/Adverse Reactions: ceftriaxone sodium [From Rocephin] Allergy (Severe, Verified 08/06/16 11:55) Anaphylaxis Ciprofloxacin Lactate [From Cipro I.V.] Allergy (Intermediate, Verified 11:55) Hives morphine Allergy (Verified 08/06/16 11:55) aspirin [Aspirin] Adverse Reaction (Intermediate, Verified 08/06/16 11:55) GI distress tramadol [Tramadol] Adverse Reaction (Intermediate, Verified 08/06/16 11:55) GI upset Review of Systems Constitutional: PRESENT: anorexia, fatigue, weakness. ABSENT: chills, fever(s) , headache(s), night sweats, weight loss Eyes: ABSENT: visual disturbances Ears: ABSENT: hearing changes Nose, Mouth, and Throat: ABSENT: headache(s), mouth pain, sore throat Cardiovascular: ABSENT: chest pain, dyspnea on exertion, edema, orthropnea, palpitations Respiratory: ABSENT: cough, dyspnea, hemoptysis, sputum Gastrointestinal: PRESENT: abdominal pain, bloating, diarrhea, nausea, vomiting. ABSENT: dysphagia, hematemesis, hematochezia Genitourinary: ABSENT: dysuria, hematuria Musculoskeletal: ABSENT: joint swelling Integumentary: ABSENT: rash, wounds Neurological: ABSENT: abnormal gait, abnormal speech, confusion, dizziness, focal weakness, syncope Psychiatric: ABSENT: anxiety, depression, homidical ideation, suicidal ideation Endocrine: ABSENT: cold intolerance, heat intolerance, polydipsia, polyuria Hematologic/Lymphatic: ABSENT: easy bleeding, easy bruising Allergic/Immunologic: PRESENT: as per HPI Physical Exam Vital Signs: Temp Pulse Resp BP Pulse Ox 97.4 F 74 18 109/69 100 08/06/16 16:42 08/06/16 16:42 08/06/16 16:42 08/06/16 16:42 08/06/16 16:42 General appearance: PRESENT: disheveled, mild distress, thin, other - cachexic Head exam: PRESENT: atraumatic, normocephalic Eye exam: PRESENT: conjunctiva pink, EOMI, PERRLA. ABSENT: scleral icterus Ear exam: PRESENT: normal external ear exam Mouth exam: PRESENT: dry mucosa, moist, neck supple, tongue midline Teeth exam: PRESENT: poor dentation Throat exam: ABSENT: post pharyngeal erythema, tonsillar erythema Neck exam: ABSENT: carotid bruit, lymphadenopathy, tenderness, thyromegaly Respiratory exam: PRESENT: clear to auscultation radha, decreased breath sounds. ABSENT: accessory muscle use, chest wall tenderness, crackles, rales, rhonchi, tachypnea Cardiovascular exam: PRESENT: RRR, +S1, +S2. ABSENT: diastolic murmur, irregular rhythm, systolic murmur Pulses: PRESENT: normal radial pulses, normal dorsalis pedis pul, +2 pedal pulses bilateral Vascular exam: PRESENT: normal capillary refill GI/Abdominal exam: PRESENT: diminished bowel sounds, firm, guarding, tenderness. ABSENT: distended, mass, Corley's sign, organolmegaly, rebound, rigid Rectal exam: PRESENT: deferred Extremities exam: PRESENT: other - Muscle wasting in all 4 extremities bilaterally. ABSENT: calf tenderness, clubbing, pedal edema, tenderness Musculoskeletal exam: PRESENT: ambulatory, full ROM Neurological exam: PRESENT: alert, altered, awake, oriented to person, oriented to place, oriented to time, oriented to situation, CN II-XII grossly intact Psychiatric exam: PRESENT: agitated, anxious, depressed. ABSENT: homicidal ideation, suicidal ideation Focused psych exam: ABSENT: restlessness Skin exam: PRESENT: dry, intact, warm. ABSENT: cyanosis, rash Results Impressions: Abdomen/Pelvis CT 08/06/16 12:04 IMPRESSION: 1. There is mild distention of small and large bowel loops with air and fluid such that at least partial bowel obstruction obstruction cannot be ruled out. A transition point is not identified. There is no free air in the abdomen. There is a small amount of free fluid in the pelvis. 2. There appear to be some thickened loops of small bowel as described. This is consistent with the patient's history of Crohn's disease. Assessment & Plan - Diagnosis (1) Partial small bowel obstruction Plan: The patient refused NG tube placement and refused to be nothing by mouth. She states she will leave the hospital before she does this. She can have clear liquids tonight but has agreed to become nothing by mouth if she should start vomiting. Will obtain a KUB in the morning. (2) Crohns disease Qualifiers: Gastrointestinal tract location: small and large intestine Digestive disease complication type: with intestinal obstruction Qualified Code(s) : K50.812 - Crohn's disease of both small and large intestine with intestinal obstruction Plan: She will be started on IV Solu-Medrol 40 mg every 8 hours. We will reassess in the morning. (3) Nausea vomiting and diarrhea Plan: She will have IV Zofran and Phenergan per rectum available as needed (4) Cocaine abuse Plan: She adamantly denies this (5) Severe protein-calorie malnutrition Plan: As we advance her diet and I will have the clinical dietitian see her.
[2016-08-06] MEDS: HYDROMORPHONE HCL INJ/PF 2 MG/ML AMPULE IV PRN ×2 (18:57→22:06)
[2016-08-06] MEDS: DEXTROSE 5%-1/2 NORMAL SALINE 1,000 ML IV PRN (20:05)
[2016-08-06] MEDS: METHYLPREDNISOLONE INJ 40 MG/1 ML SDV IV SCH (21:18)
[2016-08-07] MEDS: HYDROMORPHONE HCL INJ/PF 2 MG/ML AMPULE IV PRN ×7 (01:35→22:36)
[2016-08-07] MEDS: DEXTROSE 5%-1/2 NORMAL SALINE 1,000 ML IV PRN (05:55)
[2016-08-07 06:34] LABS: MEAN CORPUSCULAR VOLUME 89 fl (80-97)
[2016-08-07 06:39] LABS: ABSOLUTE LYMPHOCYTES (AUTO) 1.2 10^3/uL (0.5-4.7); ABSOLUTE MONOCYTES (AUTO) 0.5 10^3/uL (0.1-1.4); ABSOLUTE NEUT (AUTO) 4.7 10^3/uL (1.7-8.2); BASOPHILS % (AUTO) 0.3 % (0-2); EOSINOPHILS % (AUTO) 0.3 % (0-6); HEMATOCRIT 30.7 % (36.0-47.0); HEMOGLOBIN 10.3 g/dL (12.0-15.5); HGB HCT DIFFERENCE 0.2; LYMPHOCYTES % (AUTO) 19.1 % (13-45); MEAN CORPUSCULAR HEMOGLOBIN 29.9 pg (27.0-33.4); MEAN CORPUSCULAR HGB CONC 33.5 g/dL (32.0-36.0); MONOCYTES % (AUTO) 7.7 % (3-13); RED BLOOD COUNT 3.44 10^6/uL (3.72-5.28); RED CELL DISTRIBUTION WIDTH 16.1 % (11.5-14.0); SEGMENTED NEUTROPHILS % (AUTO) 72.6 % (42-78); WHITE BLOOD COUNT 6.5 10^3/uL (4.0-10.5)
[2016-08-07 06:51] LABS: ALANINE AMINOTRANSFERASE 24 U/L (9-52); ALBUMIN 2.7 g/dL (3.5-5.0); ALKALINE PHOSPHATASE 57 U/L (38-126); ANION GAP 10 (5-19); ASPARTATE AMINO TRANSFERASE 13 U/L (14-36); BILIRUBIN,DIRECT 0.1 mg/dL (0.0-0.4); BILIRUBIN,TOTAL 0.2 mg/dL (0.2-1.3); BLOOD UREA NITROGEN 13 mg/dL (7-20); CALCIUM 8.6 mg/dL (8.4-10.2); CARBON DIOXIDE 25 mmol/L (22-30); CHLORIDE 106 mmol/L (98-107); CREATININE RESULT 0.58 mg/dL (0.52-1.25); GLUCOSE 112 mg/dL (75-110); MAGNESIUM 1.6 mg/dL (1.6-2.3); PHOSPHORUS 4.1 mg/dL (2.5-4.5); POTASSIUM 4.4 mmol/L (3.6-5.0); TOTAL PROTEIN 5.6 g/dL (6.3-8.2)
[2016-08-07 07:19] LABS: THYROID STIMULATING HORMONE 2.46 uIU/mL (0.47-4.68)
[2016-08-07] MEDS: METHYLPREDNISOLONE INJ 40 MG/1 ML SDV IV SCH ×2 (09:45→22:36)
[2016-08-07] MEDS: ENOXAPARIN SODIUM INJ 40 MG/0.4 ML DISP.SYRIN SUBCUT SCH (09:47)
[2016-08-07] MEDS: PIPERACILLIN SODIUM/TAZOBACTAM 3.375 GM in NORMAL SALINE 100 ML IV SCH ×2 (13:33→17:01)
--- NOTE | 2016-08-07 14:59 | PDOC PROGRESS REPORT ---
Subjective Progress Note for:: 08/07/16 Subjective:: The patient is an unfortunate 45-year-old -[place] female with a long- standing history of Crohn's disease. She was hospitalized at our facility last year and was found to have an acute abdomen and went to the operating room for an exploratory laparotomy. Unfortunately her disease was found to be too extensive and she was transferred to [place] where she ultimately had another procedure. Since that time she has had ongoing issues with abdominal pain and multiple hospitalizations. She presented to the emergency room with intractable abdominal pain. She had been having multiple episodes of vomiting over the past 24 hours prior to admission. In the emergency room her lab work was unremarkable. A CT scan of the abdomen and pelvis revealed evidence of a partial small bowel obstruction and she was referred for admission. The patient was admitted to the hospital and started on IV fluids and IV Solu- Medrol. She is also on IV Zosyn at the moment. The patient refused an NG tube at the time of admission and refused to be nothing by mouth. This morning the nursing staff informs me that the patient has refused Lovenox and KAYCEE hose. When I went to see her she states that she is feeling somewhat better. She is tolerating her clear liquid diet and is hoping to start a full liquid diet this afternoon. She denies fever or chills. No chest pain, shortness of breath or heart palpitations. She has had no further episodes of nausea or vomiting. She has not yet had a bowel movement but states that she is passing gas. She continues to have pain across her lower abdomen but overall it is improved since yesterday. She reports no dysuria, frequency or hematuria. Physical Exam Vital Signs: Temp Pulse Resp BP Pulse Ox 97.6 F 63 16 119/76 100 08/07/16 08:04 08/07/16 08:04 08/07/16 08:04 08/07/16 08:04 08/07/16 08:04 Intake & Output 08/06/16 08/07/16 08/08/16 06:59 06:59 06:59 Intake Total 1400 Output Total 300 Balance 1100 Weight 47 kg General appearance: PRESENT: no acute distress, thin, other - Cachectic Head exam: PRESENT: atraumatic, normocephalic, other - Bitemporal wasting Mouth exam: PRESENT: moist, tongue midline Teeth exam: PRESENT: poor dentation Respiratory exam: PRESENT: clear to auscultation radha. ABSENT: rales, rhonchi, wheezes Cardiovascular exam: PRESENT: RRR. ABSENT: diastolic murmur, rubs, systolic murmur GI/Abdominal exam: PRESENT: diminished bowel sounds, firm, guarding, tenderness , other - The patient has a midline scar that appears to be well-healed. She is quite tender to palpation with guarding in the right and left lower quadrants. Extremities exam: PRESENT: full ROM, other - She has significant muscle wasting in all of her extremities.. ABSENT: calf tenderness, clubbing, pedal edema Musculoskeletal exam: PRESENT: ambulatory Neurological exam: PRESENT: alert, awake, oriented to person, oriented to place , oriented to time, oriented to situation, CN II-XII grossly intact. ABSENT: motor sensory deficit Results Laboratory Results: 08/07/16 06:19 08/07/16 06:19 08/07/16 08/07/16 08/07/16 06:19 06:19 06:19 WBC 6.5 RBC 3.44 L Hgb 10.3 L D Hct 30.7 L MCV 89 MCH 29.9 MCHC 33.5 RDW 16.1 H Plt Count 404 Seg Neutrophils % 72.6 Lymphocytes % 19.1 Monocytes % 7.7 Eosinophils % 0.3 Basophils % 0.3 Absolute Neutrophils 4.7 Absolute Lymphocytes 1.2 Absolute Monocytes 0.5 Absolute Eosinophils 0.0 Absolute Basophils 0.0 Sodium 141.0 Potassium 4.4 Chloride 106 Carbon Dioxide 25 Anion Gap 10 BUN 13 Creatinine 0.58 Est GFR ( Amer) > 60 Est GFR (Non-Af Amer) > 60 Glucose 112 H Calcium 8.6 Phosphorus 4.1 Magnesium 1.6 Total Bilirubin 0.2 AST 13 L ALT 24 Alkaline Phosphatase 57 Total Protein 5.6 L Albumin 2.7 L TSH 2.46 Free T4 1.21 Impressions: Abdomen/Pelvis CT 08/06/16 12:04 IMPRESSION: 1. There is mild distention of small and large bowel loops with air and fluid such that at least partial bowel obstruction obstruction cannot be ruled out. A transition point is not identified. There is no free air in the abdomen. There is a small amount of free fluid in the pelvis. 2. There appear to be some thickened loops of small bowel as described. This is consistent with the patient's history of Crohn's disease. Assessment & Plan - Diagnosis (1) Partial small bowel obstruction Plan: The patient is tolerating her clear liquid diet. We will advance her to full liquids this afternoon. Her partial small bowel obstruction seems to be improving. (2) Crohns disease Qualifiers: Gastrointestinal tract location: small and large intestine Digestive disease complication type: with intestinal obstruction Qualified Code(s) : K50.812 - Crohn's disease of both small and large intestine with intestinal obstruction Plan: She will be started on IV Solu-Medrol 40 mg every 8 hours. We will reassess in the morning. She needs outpatient GI follow-up. (3) Nausea vomiting and diarrhea Plan: This is likely due to her partial small bowel obstruction. She will continue to have IV Zofran and Phenergan per rectum available as needed. (4) Cocaine abuse Plan: She adamantly denies this (5) Severe protein-calorie malnutrition Plan: As we advance her diet and I will have the clinical dietitian see her. - Time Time Spent with patient: 25-34 minutes - 25 minutes
[2016-08-08] MEDS: PIPERACILLIN SODIUM/TAZOBACTAM 3.375 GM in NORMAL SALINE 100 ML IV SCH ×3 (00:22→11:35)
[2016-08-08] MEDS: HYDROMORPHONE HCL INJ/PF 2 MG/ML AMPULE IV PRN ×4 (02:50→14:58)
[2016-08-08] MEDS: ENOXAPARIN SODIUM INJ 40 MG/0.4 ML DISP.SYRIN SUBCUT SCH (08:10)
[2016-08-08] MEDS: METHYLPREDNISOLONE INJ 40 MG/1 ML SDV IV SCH (10:12)
[2016-08-08 13:15] VITALS: BP 130/82
[2016-08-08 14:09] LABS: APPEARANCE,URINE CLEAR; BILIRUBIN,URINE NEGATIVE (NEGATIVE); GLUCOSE, URINE NEGATIVE (NEGATIVE); KETONES,URINE NEGATIVE (NEGATIVE); LEUKOCYTE ESTERASE,URINE NEGATIVE (NEGATIVE); NITRITE,URINE NEGATIVE (NEGATIVE); PROTEIN,URINE NEGATIVE (NEGATIVE); URINE SPECIFIC GRAVITY 1.006; UROBILINOGEN,URINE NEGATIVE mg/dL (<2.0)
--- NOTE | 2016-08-08 20:04 | PDOC DISCHARGE SUMMARY ---
General - Admit/Disc Date/PCP Admission Date/Primary Care Provider: 08/06/16 18:04 Discharge Date: 08/08/16 - Discharge Diagnosis (1) Crohns disease Is this a current diagnosis for this admission?: Yes (2) Cocaine abuse Is this a current diagnosis for this admission?: Yes (3) Severe protein-calorie malnutrition Is this a current diagnosis for this admission?: Yes (4) Partial small bowel obstruction Is this a current diagnosis for this admission?: Yes - Additional Information Discharge Diet: As Tolerated, Regular Discharge Activity: Activity As Tolerated Home Medications: Methylprednisolone [Medrol Dosepack (4 mg/Tab) 21 Tab/Dosepak] 21 tab PO ASDIR PRN 12 Days 08/08/16 Metronidazole [Flagyl 500 mg Tablet] 500 mg PO TID #30 tablet 08/08/16 Oxycodone HCl/Acetaminophen [Percocet 5-325 mg Tablet] 1 - 2 tab PO Q6HP PRN # 15 tablet 08/08/16 History of Present Illness History of Present Illness: ANALISA BOLAND is a 45 year old female with a long-standing history of Crohn's disease. She was hospitalized at our facility last year and taken to the operating room for an exploratory laparotomy. Unfortunately they were not able to complete the surgery and they sent her urgently to [place]. Since that time she has had ongoing issues with abdominal pain and multiple hospitalizations. Her last hospitalization she reports was about a month ago. She states over the past several days he abdominal pain has become unbearable. She is having multiple episodes of vomiting over the past 24 hours. She also is having diarrhea which is chronic for her but it is increased in frequency up to 4-5 times a day. In the emergency room her lab work was unremarkable. CT scan of the abdomen and pelvis revealed evidence of a partial small bowel obstruction and she was referred for admission. Hospital Course Hospital Course: Initially, there was concern for partial small bowel obstruction. Patient refused NG tube, and other treatment modalities accepting only steroids and Dilaudid. Patient improved and was transitioned to a regular diet she tolerated this without any vomiting and she was discharged in stable condition. Patient reports having follow-up appointment with GI in [place]. Patient has been advised not to take cocaine. Physical Exam Vital Signs: Temp Pulse Resp BP Pulse Ox 97.8 F 101 H 20 130/82 H 100 08/08/16 16:11 08/08/16 16:11 08/08/16 16:11 08/08/16 16:11 08/08/16 16:11 Intake & Output 08/07/16 08/08/16 08/09/16 06:59 06:59 06:59 Intake Total 1400 1400 340 Output Total 300 200 Balance 1100 1400 140 Weight 47 kg 46.8 kg Exam: General: Awake alert and oriented x3, no acute respiratory distress HEENT: AT/NC, PERRL, EOMI, oropharynx is moist, pink, no scleral icterus, no conjunctival injection Neck: No JVD, trachea midline Chest: Clear to auscultation bilaterally, no wheezes rhonchi or rales; prolonged expiratory phase CV: Regular rate and rhythm, normal S1 and S2, no murmur, rub, or gallop Abdomen: Soft, mildl tender to palpation, nondistended, active bowel sounds; no rebound, rigidity, or guarding Extremities: No cyanosis, clubbing or edema Neuro: Cranial nerves II through XII are grossly intact without focal deficits; awake alert and oriented x3 Psych: Normal mood and affect Results Laboratory Results: 08/07/16 06:19 08/07/16 06:19 08/08/16 13:00 Urine Color STRAW Urine Appearance CLEAR Urine pH 6.0 Ur Specific [place] 1.006 Urine Protein NEGATIVE Urine Glucose (UA) NEGATIVE Urine Ketones NEGATIVE Urine Blood NEGATIVE Urine Nitrite NEGATIVE Ur Leukocyte Esterase NEGATIVE Urine WBC (Auto) 1 Urine RBC (Auto) 0 08/07/16 11:45 Nasophary (Mrsa Only) MRSA Surveillance Culture - Final NO MRSA RECOVERED Impressions: Abdomen/Pelvis CT 08/06/16 12:04 IMPRESSION: 1. There is mild distention of small and large bowel loops with air and fluid such that at least partial bowel obstruction obstruction cannot be ruled out. A transition point is not identified. There is no free air in the abdomen. There is a small amount of free fluid in the pelvis. 2. There appear to be some thickened loops of small bowel as described. This is consistent with the patient's history of Crohn's disease. Qualifiers PATEINT BEING DISCHARGED WITH ANY OF THE FOLLOWING DIAGNOSIS?: No Plan Time Spent: Less than 30 Minutes
== END 2016-08-08 16:34 | disposition home or self-care (01) | DRG 385 ==
LOC: ER 11:21 → EH 16:41 → 2N 17:40 → OBSVTOIN 18:04 → 5 08-07 17:30
PROVIDERS: ADMIT Internal Medicine; ATTEND Internal Medicine
DX: K50.912 Crohn's disease, unspecified, with intestinal obstruction (principal); E43 Unspecified severe protein-calorie malnutrition; Z68.1 Body mass index [BMI] 19.9 or less, adult; F14.10 Cocaine abuse, uncomplicated; F10.20 Alcohol dependence, uncomplicated; Z88.1 Allergy status to other antibiotic agents; Z82.49 Family history of ischemic heart disease and other diseases of the circulatory system; Z98.51 Tubal ligation status
CPT/HCPCS: 36415; 74177; 80048; 80053; 80307; 81001; 83690; 83735; 84100; 84439; 84443; 85025; 87086; 96361; 96374; 96375; 99285; J1170; J1885; J2405; J2543; J2920; J7030

== ENCOUNTER 2016-11-18 14:45 | Emergency (ER) | payer MEDICAID ==
[2016-11-18] MEDS ORDERED: OXYCODONE-ACETAMINOPHEN 5-325 MG TABLET PO ONE (15:08)
[2016-11-18] MEDS ORDERED: ONDANSETRON 4 MG TAB.RAPDIS PO ONE (15:08)
--- NOTE | 2016-11-18 15:09 | ER Document Report ---
ED Medical Screen (RME) - General Chief Complaint: Abdominal Pain Stated Complaint: ABDOMINAL PAIN Time Seen by Provider: 11/18/16 15:03 Notes: This 46-year-old female patient with a long history of Crohn's disease reports 1 month history of abdominal pain with nausea vomiting for the past 2 weeks, sometimes bilious vomiting. I have greeted and performed a rapid initial assessment of this patient. A comprehensive ED assessment and evaluation of the patient, analysis of test results and completion of the medical decision making process will be conducted by additional ED providers. TRAVEL OUTSIDE OF THE [place] IN LAST 30 DAYS: No - Related Data Allergies/Adverse Reactions: ceftriaxone sodium [From Rocephin] Allergy (Severe, Verified 11/18/16 14:51) Anaphylaxis Ciprofloxacin Lactate [From Cipro I.V.] Allergy (Intermediate, Verified 14:51) Hives morphine Allergy (Verified 11/18/16 14:51) aspirin [Aspirin] Adverse Reaction (Intermediate, Verified 11/18/16 14:51) GI distress tramadol [Tramadol] Adverse Reaction (Intermediate, Verified 11/18/16 14:51) GI upset Home Medications: Current Home Medications No Home Medications 11/18/16 [History] Past Medical History - Social History Family history: Reviewed & Not Pertinent - Past Medical History Cardiac Medical History: Denies: Hx Heart Attack, Hx Hypercholesterolemia, Hx Hypertension Pulmonary Medical History: Reports: Hx Pneumonia Denies: Hx Asthma, Hx Bronchitis, Hx COPD, Hx Tuberculosis Neurological Medical History: Denies: Hx Seizures Endocrine Medical History: Denies: Hx Diabetes Mellitus Type 2, Hx Hyperthyroidism, Hx Hypothyroidism Renal/ Medical History: Denies: Hx Peritoneal Dialysis GI Medical History: Reports: Hx Crohn's Disease Psychiatric Medical History: Reports: Hx Depression Infectious Medical History: Denies: Hx C-Diff Past Surgical History: Reports: Hx Abdominal Surgery - fistula, Hx Tubal Ligation, Other - Exploratory laparoscopy and limited exploratory laparotomy in July 2015.. Denies: Hx Hysterectomy, Hx Pacemaker - Immunizations Hx Diphtheria, Pertussis, Tetanus Vaccination: Yes Physical Exam - Vital signs Vitals: Temp Pulse Resp BP Pulse Ox 98.4 F 99 18 134/89 H 99 11/18/16 14:50 11/18/16 14:50 11/18/16 14:50 11/18/16 14:50 11/18/16 14:50 Course - Vital Signs Vital signs: Temp Pulse Resp BP Pulse Ox 98.4 F 99 18 134/89 H 99 11/18/16 14:50 11/18/16 14:50 11/18/16 14:50 11/18/16 14:50 11/18/16 14:50
[2016-11-18 15:43] LABS: ABSOLUTE EOSINOPHILS # (AUTO) 0.2 10^3/uL (0.0-0.6); ABSOLUTE LYMPHOCYTES (AUTO) 1.4 10^3/uL (0.5-4.7); ABSOLUTE MONOCYTES (AUTO) 0.6 10^3/uL (0.1-1.4); ABSOLUTE NEUT (AUTO) 6.3 10^3/uL (1.7-8.2); BASOPHILS % (AUTO) 0.5 % (0-2); EOSINOPHILS % (AUTO) 2.2 % (0-6); HEMATOCRIT 39.8 % (36.0-47.0); HGB HCT DIFFERENCE -0.8; LYMPHOCYTES % (AUTO) 16.8 % (13-45); MEAN CORPUSCULAR HEMOGLOBIN 30.4 pg (27.0-33.4); MEAN CORPUSCULAR HGB CONC 32.6 g/dL (32.0-36.0); MEAN CORPUSCULAR VOLUME 93 fl (80-97); MONOCYTES % (AUTO) 7.2 % (3-13); RED BLOOD COUNT 4.27 10^6/uL (3.72-5.28); RED CELL DISTRIBUTION WIDTH 15.8 % (11.5-14.0); SEGMENTED NEUTROPHILS % (AUTO) 73.3 % (42-78); WHITE BLOOD COUNT 8.6 10^3/uL (4.0-10.5)
[2016-11-18 16:08] LABS: ALANINE AMINOTRANSFERASE 26 U/L (9-52); ALBUMIN 3.7 g/dL (3.5-5.0); ALKALINE PHOSPHATASE 76 U/L (38-126); ANION GAP 10 (5-19); ASPARTATE AMINO TRANSFERASE 20 U/L (14-36); BILIRUBIN,DIRECT 0.5 mg/dL (0.0-0.4); BILIRUBIN,TOTAL 0.6 mg/dL (0.2-1.3); BLOOD UREA NITROGEN 14 mg/dL (7-20); CALCIUM 9.3 mg/dL (8.4-10.2); CARBON DIOXIDE 27 mmol/L (22-30); CHLORIDE 107 mmol/L (98-107); CREATININE RESULT 0.83 mg/dL (0.52-1.25); GLUCOSE 90 mg/dL (75-110); POTASSIUM 3.6 mmol/L (3.6-5.0); SODIUM 144.4 mmol/L (137-145); TOTAL PROTEIN 7.7 g/dL (6.3-8.2)
[2016-11-18 16:22] LABS: ERYTHROCYTE SEDIMENTATION RATE 23 mm/hr (0-20)
[2016-11-18] MEDS ORDERED: HYDROMORPHONE HCL INJ/PF 2 MG/ML AMPULE IV ONE ×2 (16:30→20:21)
[2016-11-18] MEDS ORDERED: NORMAL SALINE 1000 ML 1,000 ML IV ONE (16:31)
[2016-11-18] MEDS ORDERED: ONDANSETRON HCL INJ/PF 4 MG/2 ML SDV IV ONE (16:31)
--- NOTE | 2016-11-18 18:41 | ER Document Report ---
ED GI/ - General Mode of Arrival: Ambulatory Information source: Patient TRAVEL OUTSIDE OF THE [place] IN LAST 30 DAYS: No <ADELSO GOODWIN - Last Filed: 11/18/16 18:36> <ERIK SIMEON - Last Filed: 11/18/16 20:43> - General Chief Complaint: Abdominal Pain Stated Complaint: ABDOMINAL PAIN Time Seen by Provider: 11/18/16 15:03 Notes: Patient is a 46-year-old female with Crohn's disease who presents to the ER today for lower abdominal pain, nausea and vomiting 2 weeks. Patient states that sometimes she vomits up "brown" like stool. She has a recent history of small bowel obstruction this year. She does state that it has been harder to to have a bowel movement. (ADELSO GOODWIN) - Related Data Allergies/Adverse Reactions: ceftriaxone sodium [From Rocephin] Allergy (Severe, Verified 11/18/16 14:51) Anaphylaxis Ciprofloxacin Lactate [From Cipro I.V.] Allergy (Intermediate, Verified 14:51) Hives morphine Allergy (Verified 11/18/16 14:51) aspirin [Aspirin] Adverse Reaction (Intermediate, Verified 11/18/16 14:51) GI distress tramadol [Tramadol] Adverse Reaction (Intermediate, Verified 11/18/16 14:51) GI upset Past Medical History - General Information source: Patient - Social History Smoking Status: Unknown if Ever Smoked Frequency of alcohol use: None Drug Abuse: None Family History: Hypertension, Malignancy - Lung cancer and father Patient has suicidal ideation: No Patient has homicidal ideation: No - Past Medical History Cardiac Medical History: Denies: Hx Heart Attack, Hx Hypercholesterolemia, Hx Hypertension Pulmonary Medical History: Reports: Hx Pneumonia Denies: Hx Asthma, Hx Bronchitis, Hx COPD, Hx Tuberculosis Neurological Medical History: Denies: Hx Seizures Endocrine Medical History: Denies: Hx Diabetes Mellitus Type 2, Hx Hyperthyroidism, Hx Hypothyroidism Renal/ Medical History: Denies: Hx Peritoneal Dialysis GI Medical History: Reports: Hx Crohn's Disease Psychiatric Medical History: Reports: Hx Depression Infectious Medical History: Denies: Hx C-Diff Past Surgical History: Reports: Hx Abdominal Surgery - fistula, Hx Tubal Ligation, Other - Exploratory laparoscopy and limited exploratory laparotomy in July 2015.. Denies: Hx Hysterectomy, Hx Pacemaker - Immunizations Hx Diphtheria, Pertussis, Tetanus Vaccination: Yes <ADELSO GOODWIN - Last Filed: 11/18/16 18:36> Review of Systems - Review of Systems Constitutional: No symptoms reported. denies: Chills, Fever EENT: No symptoms reported Cardiovascular: No symptoms reported Respiratory: No symptoms reported Gastrointestinal: See HPI Genitourinary: No symptoms reported Female Genitourinary: No symptoms reported Musculoskeletal: No symptoms reported Skin: No symptoms reported Hematologic/Lymphatic: No symptoms reported Neurological/Psychological: No symptoms reported <ADELSO GOODWIN - Last Filed: 11/18/16 18:36> Physical Exam <ADELSO GOODWIN - Last Filed: 11/18/16 18:36> <ERIK SIMEON - Last Filed: 11/18/16 20:43> - Vital signs Vitals: Temp Pulse Resp BP Pulse Ox 98.4 F 99 18 134/89 H 99 11/18/16 14:50 11/18/16 14:50 11/18/16 14:50 11/18/16 14:50 11/18/16 14:50 - Notes Notes: PHYSICAL EXAMINATION: GENERAL: Writhing in pain,in mild acute distress. HEAD: Atraumatic, normocephalic. EYES: Pupils equal round and reactive to light, extraocular movements intact, sclera anicteric, conjunctiva are normal. NECK: Normal range of motion, supple without lymphadenopathy LUNGS: CTAB and equal. No wheezes rales or rhonchi. HEART: Regular rate and rhythm without murmurs ABDOMEN: Soft, diffuse tenderness, worse epigastric and hypogastric. No guarding , no rebound BACK: no vertebral tenderness, normal ROM GI/: no CVA tenderness EXTREMITIES: Normal range of motion, no pitting edema. No cyanosis. NEUROLOGICAL: Cranial nerves grossly intact. Normal sensory/motor exams. PSYCH: Normal mood, normal affect. SKIN: Warm, Dry, normal turgor, no rashes or lesions noted (BAOTAMMIEADELSO) Course - Laboratory Result Diagrams: 11/18/16 15:27 11/18/16 15:27 <BAOTAMMIEADELSO - Last Filed: 11/18/16 18:36> - Laboratory Result Diagrams: 11/18/16 15:27 11/18/16 15:27 <BLANCO,ERIK - Last Filed: 11/18/16 20:43> - Re-evaluation Re-evalutation: 11/18/16 18:40 labwork is unremarkable today, pt awaiting CT scan of abd with iv and oral contrast. was given pain medication and nausea medication. (ADELSO GOODWIN) 11/18/16 20:39 Patient is an afebrile, well-hydrated, 46-year-old female with a history of Crohn's who presents the ED with abdominal pain, suspect Crohn's flare based on H&P. Vitals are stable. PE otherwise unremarkable at this time. Reviewed case with Dr. Garibay along with GI, Dr. Mora. Patient is able to tolerate p.o. intake. Patient states that she did continues to have abdominal pain. He does not believe that the patient needs to be admitted at this time Dr. Mora. CT scan indeterminate, but comparable to previous CT. He recommends a one- month titrating dose of prednisone starting with 40 mg daily for 1 week and decreasing thereafter as prescribed. I will also send her home with a prescription for Zofran and a very short course of oxycodone. Reviewed with patient that she needs to follow-up with her GI doctor this week along with her PCM for recheck. Return to the ED with any worsening/concerning symptoms otherwise as reviewed discharge. Patient is in agreement. Low suspicion for any acute appendicitis, bowel obstruction, acute cholecystitis , perforated diverticulitis, incarcerated hernia, pancreatitis, pelvic inflammatory disease, perforated ulcer,ectopic , or tubo-ovarian abscess at this time. Patient is aware that condition can change from initial presentation and she needs to monitor symptoms closely and seek medical attention if any acute changes. (ERIK SIMEON) - Vital Signs Vital signs: Temp Pulse Resp BP Pulse Ox 98.4 F 85 16 123/85 100 11/18/16 14:50 11/18/16 17:43 11/18/16 17:43 11/18/16 17:43 11/18/16 17:43 - Laboratory Laboratory results interpreted by me: 11/18/16 11/18/16 11/18/16 15:27 15:27 19:15 RDW 15.8 H ESR 23 H Direct Bilirubin 0.5 H Urine Protein 30 H Urine Ketones TRACE H Urine Urobilinogen 4.0 H Discharge <ADELSO GOODWIN - Last Filed: 11/18/16 18:36> <ERIK SIMEON - Last Filed: 11/18/16 20:43> - Discharge Clinical Impression: Crohn's disease Qualifiers: Gastrointestinal tract location: unspecified location Digestive disease complication type: unspecified complication Qualified Code(s): K50.919 - Crohn' s disease, unspecified, with unspecified complications Abdominal pain Qualifiers: Abdominal location: unspecified location Qualified Code(s): R10.9 - Unspecified abdominal pain Condition: Stable Disposition: HOME, SELF-CARE Instructions: Abdominal Pain ([facility]), Antinausea Medication ([facility]), Crohn's Disease ([facility]), Oral Narcotic Medication ([facility]) Additional Instructions: Maintain adequate fluid/food intake Take medications as directed BRAT diet (bananas, rice, apples, toast, etc)--keep it dry and simple Tylenol as needed Call Gastroenterology (information provided) for a consult this week* Call and schedule a f/u with your PCM this week* Return to the ED with any worsening symptoms and/or development of fever, headache, chest pain, palpitations, syncope, shortness of breath, trouble breathing, increasing abdominal pain, n/v/d, blood in stool/urine/vomit, loss of control of bowel/bladder, urinary retention, muscle weakness/paralysis, dehydration, numbness/tingling, or other worsening symptoms that are concerning to you. Prescriptions: Ondansetron [Zofran Odt 4 mg Tablet] 1 - 2 tab PO Q4H PRN #15 tab.rapdis PRN Reason: For Nausea/Vomiting Oxycodone HCl/Acetaminophen [Oxycodone-Acetaminophen 5-325] 1 each PO BID #5 tablet Prednisone [Deltasone 10 mg Tablet] 10 mg PO ASDIR PRN #70 tablet PRN Reason: Referrals: CHUCHO MORA MD [ACTIVE STAFF] - Follow up in 3-5 days OREN SEYMOUR MD [Primary Care Provider] - Follow up in 3-5 days
--- NOTE | 2016-11-18 19:38 | RADIOLOGY REPORT (SQ) ---
EXAM DESCRIPTION: CT ABD/PELVIS WITH IV ORAL COMPLETED DATE/TIME: 11/18/2016 7:24 pm REASON FOR STUDY: vomiting stool, abd pain, hx sbo COMPARISON: 08/06/2016. TECHNIQUE: CT scan of the abdomen and pelvis performed using helical scanning technique with dynamic intravenous contrast injection. No oral contrast. Images reviewed with lung, soft tissue, and bone windows. Reconstructed coronal and sagittal MPR images reviewed. Delayed images for evaluation of the urinary system also acquired. All images stored on PACS. All CT scanners at this facility use dose modulation, iterative reconstruction, and/or weight based d osing when appropriate to reduce radiation dose to as low as reasonably achievable (ALARA). [facility]: Dose Right [facility]: CareDose [facility]: Dose Right [facility]: Teradose 4D [facility]: BettrLife CONTRAST TYPE AND DOSE: contrast/concentration: Isovue 370.00 mg/ml; Total Contrast Delivered: 45.0 ml; Total Saline Delivered: 35.0 ml RENAL FUNCTION: BUN 14, creatinine 0.83 RADIATION DOSE: Up-to-date CT equipment and radiation dose reduction techniques were employed. CTDIv ol: 4.8 mGy. DLP: 476 mGy-cm.. LIMITATIONS: None. FINDINGS: LOWER CHEST: No significant findings. No nodules or infiltrates. LIVER: Normal size. No masses. No dilated ducts. There is a small amount of free fluid on the infer ior margin of the liver. SPLEEN: Normal size. No focal lesions. PANCREAS: No masses. No significant calcifications. No adjacent inflammation or peripancreatic fluid collections. Pancreatic duct not dilated. GALLBLADDER: No identified stones by CT criteria. No inflammatory changes to suggest cholecystitis. ADRENAL GLANDS: No significant masses or asymmetry. RIGHT KIDNEY AND URETER: No solid masses. No significant calcifications. No hydronephrosis or hyd roureter. LEFT KIDNEY AND URETER: No solid masses. No significant calcifications. No hydronephrosis or hydr oureter. AORTA AND VESSELS: No aneurysm. No dissection. Renal arteries, SMA, celiac without stenosis. RETROPERITONEUM: No retroperitoneal adenopathy, hemorrhage or masses. BOWEL AND PERITONEAL CAVITY: There is severe gastric distention. There is dilatation of the duodenum . There are areas of small bowel wall thickening. There is a large amount of stool throughout the c olon. APPENDIX: Not visualized. PELVIS: Bilateral adnexal lesions probably represent ovarian cysts although dilated loops of small [place] wel are also a possibility. ABDOMINAL WALL: No masses. No hernias. BONES: No significant or acute findings. OTHER: No other significant finding. IMPRESSION: Distended stomach with dilated small and large bowel. There is a large amount of stool throughout the colon. There is large amount of food debris in the stomach. There are areas of bowel wall thickening in the proximal small bowel. Similar findings were present on patient's prior CT do ne in July. The patient has a history of Crohn's. There is a small amount of free fluid surroundin g the inferior aspect of the liver. TECHNICAL DOCUMENTATION: JOB ID: [id number] Quality ID # [id number]: Final reports with documentation of one or more dose reduction techniques (e.g., Au tomated exposure control, adjustment of the mA and/or kV according to patient size, use of iterative reconstruction technique) 2010 [employer]- All Rights Reserved
[2016-11-18 19:55] LABS: APPEARANCE,URINE SLIGHTLY-CLOUDY; BILIRUBIN,URINE NEGATIVE (NEGATIVE); CALCIUM OXALATE CRYSTALS,URINE TOO NUMEROUS TO CNT /HPF; GLUCOSE, URINE NEGATIVE (NEGATIVE); KETONES,URINE TRACE mg/dL (NEGATIVE); LEUKOCYTE ESTERASE,URINE NEGATIVE (NEGATIVE); NITRITE,URINE NEGATIVE (NEGATIVE); PROTEIN,URINE 30 mg/dL (NEGATIVE); URINE SPECIFIC GRAVITY 1.032
[2016-11-18 21:32] VITALS: BP 117/82
== END 2016-11-18 21:46 | disposition home or self-care (01) ==
LOC: ER 14:45
DX: K50.919 Crohn's disease, unspecified, with unspecified complications (principal); R11.2 Nausea with vomiting, unspecified; R10.30 Lower abdominal pain, unspecified; R10.817 Generalized abdominal tenderness; Z87.19 Personal history of other diseases of the digestive system; Z88.5 Allergy status to narcotic agent; Z87.892 Personal history of anaphylaxis; Z88.1 Allergy status to other antibiotic agents
CPT/HCPCS: 96376; 99284; 96374; 96375; 36415; 84703; 85025; 85652; 81001; 80053; 74177; S0119; J1170; J2405; J7030

== ENCOUNTER 2017-01-05 15:29 | Emergency (ER) | payer MEDICAID ==
[2017-01-05] MEDS ORDERED: HYDROMORPHONE HCL INJ/PF 2 MG/ML AMPULE IV ONE ×2 (16:17→18:22)
[2017-01-05] MEDS ORDERED: ONDANSETRON HCL INJ/PF 4 MG/2 ML SDV IV ONE (16:17)
--- NOTE | 2017-01-05 16:18 | ER Document Report ---
ED Medical Screen (RME) - General Chief Complaint: Abdominal Pain Stated Complaint: ABDOMINAL AND BACK PAIN Time Seen by Provider: 01/05/17 16:15 Notes: Patient with history of Crohn's. Presents with severe abdominal pain and vomiting. TRAVEL OUTSIDE OF THE [place] IN LAST 30 DAYS: No - Related Data Allergies/Adverse Reactions: ceftriaxone sodium [From Rocephin] Allergy (Severe, Verified 01/05/17 15:55) Anaphylaxis Ciprofloxacin Lactate [From Cipro I.V.] Allergy (Intermediate, Verified 15:55) Hives morphine Allergy (Verified 01/05/17 15:55) aspirin [Aspirin] Adverse Reaction (Intermediate, Verified 01/05/17 15:55) GI distress tramadol [Tramadol] Adverse Reaction (Intermediate, Verified 01/05/17 15:55) GI upset Past Medical History - Social History Family history: Reviewed & Not Pertinent - Past Medical History Cardiac Medical History: Denies: Hx Heart Attack, Hx Hypercholesterolemia, Hx Hypertension Pulmonary Medical History: Reports: Hx Pneumonia Denies: Hx Asthma, Hx Bronchitis, Hx COPD, Hx Tuberculosis Neurological Medical History: Denies: Hx Seizures Endocrine Medical History: Denies: Hx Diabetes Mellitus Type 2, Hx Hyperthyroidism, Hx Hypothyroidism Renal/ Medical History: Denies: Hx Peritoneal Dialysis GI Medical History: Reports: Hx Crohn's Disease Psychiatric Medical History: Reports: Hx Depression Infectious Medical History: Denies: Hx C-Diff Past Surgical History: Reports: Hx Abdominal Surgery - fistula, Hx Tubal Ligation, Other - Exploratory laparoscopy and limited exploratory laparotomy in July 2015.. Denies: Hx Hysterectomy, Hx Pacemaker - Immunizations Hx Diphtheria, Pertussis, Tetanus Vaccination: Yes Physical Exam - Vital signs Vitals: Temp Pulse Resp BP Pulse Ox 98.8 F 105 H 20 119/93 H 99 01/05/17 15:55 01/05/17 15:55 01/05/17 15:55 01/05/17 15:55 01/05/17 15:55 Course - Vital Signs Vital signs: Temp Pulse Resp BP Pulse Ox 98.8 F 105 H 20 119/93 H 99 01/05/17 15:55 01/05/17 15:55 01/05/17 15:55 01/05/17 15:55 01/05/17 15:55
[2017-01-05 16:43] LABS: ABSOLUTE BASOPHILS # (AUTO) 0.1 10^3/uL (0.0-0.2); ABSOLUTE EOSINOPHILS # (AUTO) 0.1 10^3/uL (0.0-0.6); ABSOLUTE LYMPHOCYTES (AUTO) 1.6 10^3/uL (0.5-4.7); ABSOLUTE MONOCYTES (AUTO) 0.8 10^3/uL (0.1-1.4); ABSOLUTE NEUT (AUTO) 6.4 10^3/uL (1.7-8.2); BASOPHILS % (AUTO) 0.8 % (0-2); EOSINOPHILS % (AUTO) 1.4 % (0-6); HEMATOCRIT 36.4 % (36.0-47.0); HEMOGLOBIN 12.4 g/dL (12.0-15.5); HGB HCT DIFFERENCE 0.8; LYMPHOCYTES % (AUTO) 17.8 % (13-45); MEAN CORPUSCULAR HEMOGLOBIN 31.1 pg (27.0-33.4); MEAN CORPUSCULAR VOLUME 91 fl (80-97); MONOCYTES % (AUTO) 8.5 % (3-13); RED BLOOD COUNT 3.99 10^6/uL (3.72-5.28); RED CELL DISTRIBUTION WIDTH 14.7 % (11.5-14.0); SEGMENTED NEUTROPHILS % (AUTO) 71.5 % (42-78)
[2017-01-05 17:04] LABS: ALANINE AMINOTRANSFERASE 19 U/L (9-52); ALBUMIN 3.9 g/dL (3.5-5.0); ALKALINE PHOSPHATASE 96 U/L (38-126); ANION GAP 9 (5-19); ASPARTATE AMINO TRANSFERASE 21 U/L (14-36); BILIRUBIN,DIRECT 0.5 mg/dL (0.0-0.4); BILIRUBIN,TOTAL 0.7 mg/dL (0.2-1.3); BLOOD UREA NITROGEN 11 mg/dL (7-20); CALCIUM 9.3 mg/dL (8.4-10.2); CARBON DIOXIDE 28 mmol/L (22-30); CHLORIDE 103 mmol/L (98-107); CREATININE RESULT 0.79 mg/dL (0.52-1.25); GLUCOSE 83 mg/dL (75-110); LIPASE 18.3 U/L (23-300); POTASSIUM 3.5 mmol/L (3.6-5.0); SODIUM 140.3 mmol/L (137-145); TOTAL PROTEIN 8.3 g/dL (6.3-8.2)
--- NOTE | 2017-01-05 18:10 | ER Document Report ---
ED GI/ - General Chief Complaint: Abdominal Pain Stated Complaint: ABDOMINAL AND BACK PAIN Time Seen by Provider: 01/05/17 16:15 Notes: The patient is a 46-year-old female, past medical history Crohn's with prior fistulae that required surgical repair, Hx of cocaine abuse, presents with abdominal pain, left flank pain, nausea and vomiting for the past 2 days. Patient says that she has had this pain multiple times in the past and she is unsure if the fistula has returned. She denies fevers, hematemesis, diarrhea, chest pain, shortness of breath, rash, dysuria or hematuria. TRAVEL OUTSIDE OF THE [place] IN LAST 30 DAYS: No - Related Data Allergies/Adverse Reactions: ceftriaxone sodium [From Rocephin] Allergy (Severe, Verified 01/05/17 15:55) Anaphylaxis Ciprofloxacin Lactate [From Cipro I.V.] Allergy (Intermediate, Verified 15:55) Hives morphine Allergy (Verified 01/05/17 15:55) aspirin [Aspirin] Adverse Reaction (Intermediate, Verified 01/05/17 15:55) GI distress tramadol [Tramadol] Adverse Reaction (Intermediate, Verified 01/05/17 15:55) GI upset Past Medical History - General Information source: Patient - Social History Smoking Status: Current Every Day Smoker Chew tobacco use (# tins/day): No Frequency of alcohol use: None Drug Abuse: None Family History: Hypertension, Malignancy - Lung cancer and father Patient has suicidal ideation: No Patient has homicidal ideation: No - Past Medical History Cardiac Medical History: Denies: Hx Heart Attack, Hx Hypercholesterolemia, Hx Hypertension Pulmonary Medical History: Reports: Hx Pneumonia Denies: Hx Asthma, Hx Bronchitis, Hx COPD, Hx Tuberculosis Neurological Medical History: Denies: Hx Seizures Endocrine Medical History: Denies: Hx Diabetes Mellitus Type 2, Hx Hyperthyroidism, Hx Hypothyroidism Renal/ Medical History: Denies: Hx Peritoneal Dialysis GI Medical History: Reports: Hx Crohn's Disease Psychiatric Medical History: Reports: Hx Depression Infectious Medical History: Denies: Hx C-Diff Past Surgical History: Reports: Hx Abdominal Surgery - fistula, Hx Tubal Ligation, Other - Exploratory laparoscopy and limited exploratory laparotomy in July 2015.. Denies: Hx Hysterectomy, Hx Pacemaker - Immunizations Hx Diphtheria, Pertussis, Tetanus Vaccination: Yes Review of Systems - Review of Systems Notes: REVIEW OF SYSTEMS: CONSTITUTIONAL: -fevers, -chills EENT: -eye pain, -difficulty swallowing, -nasal congestion CARDIOVASCULAR:-chest pain, -syncope. RESPIRATORY: -cough, -SOB GASTROINTESTINAL: +abdominal pain, +nausea, +vomiting, -diarrhea GENITOURINARY: -dysuria, -hematuria MUSCULOSKELETAL: -back pain, -neck pain SKIN: -rash or skin lesions. HEMATOLOGIC: -easy bruising or bleeding. LYMPHATIC: -swollen, enlarged glands. NEUROLOGICAL: -altered mental status or loss of consciousness, -headache, - neurologic symptoms PSYCHIATRIC: -anxiety, -depression. ALL OTHER SYSTEMS REVIEWED AND NEGATIVE. Physical Exam - Vital signs Vitals: Temp Pulse Resp BP Pulse Ox 98.8 F 105 H 20 119/93 H 99 01/05/17 15:55 01/05/17 15:55 01/05/17 15:55 01/05/17 15:55 01/05/17 15:55 - Notes Notes: PHYSICAL EXAMINATION: GENERAL: Well-appearing, well-nourished and in no acute distress. HEAD: Atraumatic, normocephalic. EYES: Pupils equal round and reactive to light, extraocular movements intact, sclera anicteric, conjunctiva are normal. ENT: nares patent, oropharynx clear without exudates. Moist mucous membranes. NECK: Normal range of motion, supple without lymphadenopathy LUNGS: Breath sounds clear to auscultation bilaterally and equal. No wheezes rales or rhonchi. HEART: Regular rate and rhythm without murmurs ABDOMEN: Soft, nontender, normoactive bowel sounds. No guarding, no rebound. No masses appreciated. EXTREMITIES: Normal range of motion, no pitting or edema. No cyanosis. NEUROLOGICAL: Cranial nerves grossly intact. Normal speech, normal gait. Normal sensory and motor exams. PSYCH: Normal mood, normal affect. SKIN: Warm, Dry, normal turgor, no rashes or lesions noted. Course - Re-evaluation Re-evalutation: Patient with left lower quadrant abdominal pain, nausea and vomiting. Labs and urine are unremarkable and CT scan does not show any acute abnormalities or signs of fistula. Instructed patient that she must follow-up with her GI doctor for further evaluation and treatment due to her chronic abdominal pain. - Vital Signs Vital signs: Temp Pulse Resp BP Pulse Ox 97.8 F 75 18 114/72 100 01/05/17 23:19 01/05/17 23:19 01/05/17 23:19 01/05/17 23:19 01/05/17 23:19 - Laboratory Result Diagrams: 01/05/17 16:30 01/05/17 16:30 Laboratory results interpreted by me: 01/05/17 01/05/17 01/05/17 16:30 16:30 22:20 RDW 14.7 H Plt Count 605 H Potassium 3.5 L Direct Bilirubin 0.5 H Total Protein 8.3 H Lipase 18.3 L Urine Urobilinogen 4.0 H - Diagnostic Test Radiology reviewed: Image reviewed, Reports reviewed Radiology results interpreted by me: CT A/P: A distended stomach is identified containing what is presumed to represent food and secretions. Again there is some dilatation of proximal duodenum which was present on the previous study. There is a confluent area of bowel in the mid abdomen anteriorly with an associated dilated bowel loop with a prominent air-fluid level. This was present on the previous study. This area could represent involvement by the patient's known Crohn's disease. Clinical correlation is recommended. Other findings as noted above Discharge - Discharge Clinical Impression: Abdominal pain Qualifiers: Abdominal location: unspecified location Qualified Code(s): R10.9 - Unspecified abdominal pain Condition: Stable Disposition: HOME, SELF-CARE Additional Instructions: Your labs, urine and CAT scan did not show any acute abnormalities. You must follow-up with your GI doctor for further evaluation and treatment. Zofran for any nausea or vomiting. ABDOMINAL PAIN: There are many causes of abdominal pain. Pain can mean a serious problem requiring surgery (such as appendicitis). It can also be an innocent problem that goes away on its own (such as a viral infection). Often, time must pass to determine the cause of pain. The physician does not feel that hospitalization is necessary, at present. Things may change within the next 24 hours. Call the doctor or come back for re- examination if any problems occur, such as: (1) Pain that becomes more severe, steady, or becomes concentrated in one specific area. Also, pain that is more severe with movement or coughing. (2) Vomiting that persists or becomes more frequent. (3) Blood in the vomitus, urine, or bowel movements. Blood in the stool may have a tarry or black appearance. (4) Shaking chills or fever greater than 100 degrees F. (5) The abdomen becomes more distended or swollen. (6) Bowel movements cease. (7) Failure to improve as expected. NORMAL EXAM AND WORKUP: At this time, your examination and workup show no significant abnormality, other than your known Crohn's. No significant abnormal physical findings are noted. All laboratory, EKG, and imaging (x-ray, CT scans, ultrasound) studies that were ordered show no significant abnormality. Although your examination and all studies that were ordered showed no significant abnormal finding, there are no examinations and no studies that are 100% accurate. There is always the possibility that some abnormality could exist and not be detected with physical examination or within the limits and capabilities of laboratory and other studies. You should return or follow up as you were instructed on your visit today for further evaluation if your symptoms do not resolve. PAIN MEDICATION INJECTION: You have received an injection of a pain medication. You should experience significant pain relief within 45 minutes. This drug is a narcotic - - it will impair your judgement, slow your reaction time and make you sleepy ( as well as relieve your pain). Narcotics also can cause nausea. You should not drive, work with machinery, or perform any task requiring mental alertness until all effects of the medication are gone -- six to eight hours. Do not take any alcohol, or sedatives, and do not take any other medication without checking with your physician. ANTINAUSEA MEDICATION: You have been given a medication to suppress nausea and vomiting. This type of medication can be given as a shot, pill, or suppository. It will usually last for many hours. Pills and shots usually last six to eight hours, suppositories last about 12 hours. For the typical illness, only one or two doses of the medication may be necessary. Mild lightheadedness may occur. This type of medicine can cause drowsiness. Do not drive or operate dangerous machinery while under its influence. Do not mix with alcohol. See your doctor at once if you have muscle spasms or tightness, or uncontrollable motions (particularly of the neck, mouth, or jaw). Persistent vomiting or severe lightheadedness should also be evaluated by the physician. ANTISPASMODICS: You have been given a prescription for an antispasmodic medicine. This type of drug is used to decrease cramping and pain in the intestines. It is also used to decrease secretion of internal fluids (such as stomach acid in ulcer disease or pancreatic juice in pancreas disease). This medicine may cause drowsiness, especially with the first dose. Do not operate machinery or drive until all side effects have resolved. Do not combine with alcohol. Other common side effects include dry mouth and eyes. In older persons, antispasmodics can occasionally cause urinary retention, constipation, or trouble focusing the eyes. Glaucoma may be worsened by this medicine. FOLLOW-UP CARE: If you have been referred to a physician for follow-up care, call the physician s office for an appointment as you were instructed or within the next two days. If you experience worsening or a significant change in your symptoms, notify the physician immediately or return to the Emergency Department at any time for re-evaluation. Prescriptions: Ondansetron [Zofran Odt 4 mg Tablet] 1 - 2 tab PO Q4H PRN #15 tab.rapdis PRN Reason: For Nausea/Vomiting Referrals: OREN SEYMOUR MD [Primary Care Provider] - Follow up as needed LIZA SY MD [ACTIVE STAFF] - Follow up as needed
[2017-01-05 22:33] LABS: APPEARANCE,URINE CLEAR; BILIRUBIN,URINE NEGATIVE (NEGATIVE); GLUCOSE, URINE NEGATIVE (NEGATIVE); KETONES,URINE NEGATIVE (NEGATIVE); LEUKOCYTE ESTERASE,URINE NEGATIVE (NEGATIVE); NITRITE,URINE NEGATIVE (NEGATIVE); PROTEIN,URINE NEGATIVE (NEGATIVE)
[2017-01-05 22:34] LABS: URINE SPECIFIC GRAVITY > 1.060
--- NOTE | 2017-01-05 22:42 | RADIOLOGY REPORT (SQ) ---
EXAM DESCRIPTION: CT ABD/PELVIS WITH IV ORAL COMPLETED DATE/TIME: 01/05/2017 9:50 pm REASON FOR STUDY: Hx Crohn's and fistulae, LLQ tenderness COMPARISON: Multiple previous studies most recent of which was 11/18/2016 TECHNIQUE: CT scan of the abdomen and pelvis performed using helical scanning technique with dynamic intravenous contrast injection and oral contrast. Images reviewed with lung, soft tissue, and bone w indows. Reconstructed coronal and sagittal MPR images reviewed. Delayed images for evaluation of the urinary system also acquired. All images stored on PACS. All CT scanners at this facility use dose modulation, iterative reconstruction, and/or weight based d osing when appropriate to reduce radiation dose to as low as reasonably achievable (ALARA). [facility]: Dose Right [facility]: CareDose [facility]: Dose Right [facility]: Teradose 4D [facility]: Zoom CONTRAST TYPE AND DOSE: contrast/concentration: Isovue 370.00 mg/ml; Total Contrast Delivered: 44.0 ml; Total Saline Delivered: 45.0 ml RENAL FUNCTION: None required. The patient is less than 50 years old. RADIATION DOSE: Up-to-date CT equipment and radiation dose reduction techniques were employed. CTDIv ol: 4.8 mGy. DLP: 485 mGy-cm.. LIMITATIONS: There is a relative paucity of mesenteric and retroperitoneal fat making delineation of abdominal and pelvic structures somewhat difficult. FINDINGS: LOWER CHEST: No significant findings. No nodules or infiltrates. LIVER: Normal size. No masses. No dilated ducts. SPLEEN: Normal size. No focal lesions. PANCREAS: No masses. No significant calcifications. No adjacent inflammation or peripancreatic fluid collections. Pancreatic duct not dilated. GALLBLADDER: No identified stones by CT criteria. No inflammatory changes to suggest cholecystitis. ADRENAL GLANDS: No significant masses or asymmetry. RIGHT KIDNEY AND URETER: No solid masses. No significant calcifications. No hydronephrosis or hyd roureter. LEFT KIDNEY AND URETER: No solid masses. No significant calcifications. No hydronephrosis or hydr oureter. AORTA AND VESSELS: No aneurysm. No dissection. Renal arteries, SMA, celiac without stenosis. RETROPERITONEUM: No retroperitoneal adenopathy, hemorrhage or masses. BOWEL AND PERITONEAL CAVITY: Distended stomach is identified containing what is presumed represent fo od and secretions. Again there is some dilatation of the proximal duodenum which was present on the previous study. There is a confluent area of bowel in the mid abdomen anteriorly with an associated dilated bowel loop with a prominent air-fluid level. This was present on the previous study. This a elvira could represent involvement by the patient's known Crohn's disease. APPENDIX: Not identified PELVIS: No mass. No free fluid. Normal bladder. ABDOMINAL WALL: No masses. No hernias. BONES: No significant or acute findings. OTHER: No other significant finding. IMPRESSION: A distended stomach is identified containing what is presumed to represent food and secr etions. Again there is some dilatation of proximal duodenum which was present on the previous study. There is a confluent area of bowel in the mid abdomen anteriorly with an associated dilated bowel l oop with a prominent air-fluid level. This was present on the previous study. This area could repre sent involvement by the patient's known Crohn's disease. Clinical correlation is recommended. Other findings as noted above TECHNICAL DOCUMENTATION: JOB ID: [id number] Quality ID # [id number]: Final reports with documentation of one or more dose reduction techniques (e.g., Au tomated exposure control, adjustment of the mA and/or kV according to patient size, use of iterative reconstruction technique) 2010 [employer]- All Rights Reserved
[2017-01-05 23:20] VITALS: BP 114/72
== END 2017-01-05 23:31 | disposition home or self-care (01) ==
LOC: ER 15:29
DX: R10.32 Left lower quadrant pain (principal); F17.200 Nicotine dependence, unspecified, uncomplicated; Z88.3 Allergy status to other anti-infective agents; Z88.6 Allergy status to analgesic agent; Z98.51 Tubal ligation status
CPT/HCPCS: 96376; 99284; 96374; 96375; 36415; 83690; 85025; 81025; 80053; 81001; 74177; J1170; J2405

== ENCOUNTER 2017-07-31 11:51 | Emergency (ER) | payer MEDICAID ==
[2017-07-31 11:58] VITALS: BP 135/91
[2017-07-31] MEDS ORDERED: NORMAL SALINE 1000 ML 1,000 ML IV ONE (12:16)
[2017-07-31] MEDS ORDERED: ONDANSETRON HCL INJ/PF 4 MG/2 ML SDV IV ONE (12:16)
[2017-07-31] MEDS ORDERED: HYDROMORPHONE HCL INJ/PF 2 MG/ML AMPULE IV ONE (12:16)
--- NOTE | 2017-07-31 12:18 | ER Document Report ---
ED Medical Screen (RME) - General Mode of Arrival: Ambulatory Information source: Patient TRAVEL OUTSIDE OF THE [place] IN LAST 30 DAYS: No <SHAWN REYES - Last Filed: 07/31/17 12:39> <RIKY BLOUNT - Last Filed: 07/31/17 16:53> - General Chief Complaint: Abdominal Pain Stated Complaint: ABDOMINAL PAIN Time Seen by Provider: 07/31/17 12:12 Notes: 46 y.o female presents to the ED with lower abdominal and back pain. She reports nausea, and vomiting that takes like bile and denies any known fevers. Pt has a hx of crohn's disease and has had fistulas before which she states is similar to the pain she is experiencing now. (SHAWN REYES) - Related Data Allergies/Adverse Reactions: ceftriaxone sodium [From Rocephin] Allergy (Severe, Verified 07/31/17 12:05) Anaphylaxis Ciprofloxacin Lactate [From Cipro I.V.] Allergy (Intermediate, Verified 12:05) Hives morphine Allergy (Verified 07/31/17 12:05) aspirin [Aspirin] Adverse Reaction (Intermediate, Verified 07/31/17 12:05) GI distress tramadol [Tramadol] Adverse Reaction (Intermediate, Verified 07/31/17 12:05) GI upset Past Medical History - General Information source: Patient - Social History Chew tobacco use (# tins/day): No Frequency of alcohol use: None Drug Abuse: Cocaine Family history: Reviewed & Not Pertinent Pulmonary Medical History: Reports: Hx Pneumonia Renal/ Medical History: Denies: Hx Peritoneal Dialysis GI Medical History: Reports: Hx Crohn's Disease Psychiatric Medical History: Reports: Hx Depression Infectious Medical History: Denies: Hx C-Diff Past Surgical History: Reports: Hx Abdominal Surgery - fistula, Hx Tubal Ligation, Other - Exploratory laparoscopy and limited exploratory laparotomy in July 2015.. Denies: Hx Hysterectomy, Hx Pacemaker - Immunizations Hx Diphtheria, Pertussis, Tetanus Vaccination: Yes History of Influenza Vaccine for 01/2017 - 06/2017 Season: Refused <SHAWN REYES - Last Filed: 07/31/17 12:39> Review of Systems - Review of Systems Constitutional: See HPI. denies: Fever Gastrointestinal: See HPI, Abdominal pain - lower abd, Nausea, Vomiting Musculoskeletal: See HPI, Back pain - lower back <SHAWN REYES - Last Filed: 07/31/17 12:39> Physical Exam <SHAWN REYES - Last Filed: 07/31/17 12:39> <RIKY BLOUNT - Last Filed: 07/31/17 16:53> - Vital signs Vitals: Temp Pulse Resp BP Pulse Ox 98.1 F 97 22 H 135/91 H 97 07/31/17 11:56 07/31/17 11:56 07/31/17 11:56 07/31/17 11:56 07/31/17 11:56 - Notes Notes: Physical Exam: General: Alert. Tearful, uncomfortable, hunched over. HEENT: Normocephalic. Atraumatic. PERRLA. Extraocular movements intact. Neck: Supple. Respiratory: No respiratory distress. Abdominal: Normal Inspection. No distension. Extremities: Moves all four extremities. Neurological: Normal cognition. AAOx4. Normal speech. Psychological: Normal affect. Normal Mood. Skin: Warm. Dry. Normal color. (SHAWN REYES) Course - Laboratory Result Diagrams: 07/31/17 13:05 07/31/17 13:05 <RIKY BLOUNT - Last Filed: 07/31/17 16:53> - Vital Signs Vital signs: Temp Pulse Resp BP Pulse Ox 98.1 F 97 22 H 135/91 H 97 07/31/17 11:56 07/31/17 11:56 07/31/17 11:56 07/31/17 11:56 07/31/17 11:56 - Laboratory Laboratory results interpreted by me: 07/31/17 07/31/17 13:05 13:46 Hct 35.7 L RDW 17.9 H Plt Count 662 H Urine Urobilinogen 4.0 H Doctor's Discharge <SHAWN REYES - Last Filed: 07/31/17 12:39> <RIKY BLOUNT - Last Filed: 07/31/17 16:53> - Discharge Clinical Impression: Crohns disease Qualifiers: Gastrointestinal tract location: unspecified location Digestive disease complication type: unspecified complication Qualified Code(s): K50.919 - Crohn' s disease, unspecified, with unspecified complications Condition: Stable Disposition: HOME, SELF-CARE Additional Instructions: Return immediately for any new or worsening symptoms. Follow up with primary care provider, call tomorrow to make followup appointment. Prescriptions: Prednisone 60 mg PO DAILY #30 tablet Referrals: OREN SEYMOUR MD [Primary Care Provider] - Follow up as needed Scribe Documentation - Scribe Written by Scribe:: Wilmar Santillan 07/31/17 1230 acting as scribe for :: Jannet <SHAWN REYES - Last Filed: 07/31/17 12:39>
[2017-07-31 13:34] LABS: ABSOLUTE EOSINOPHILS # (AUTO) 0.1 10^3/uL (0.0-0.6); ABSOLUTE LYMPHOCYTES (AUTO) 1.3 10^3/uL (0.5-4.7); ABSOLUTE MONOCYTES (AUTO) 0.7 10^3/uL (0.1-1.4); ABSOLUTE NEUT (AUTO) 5.9 10^3/uL (1.7-8.2); BASOPHILS % (AUTO) 0.5 % (0-2); EOSINOPHILS % (AUTO) 1.5 % (0-6); HEMATOCRIT 35.7 % (36.0-47.0); LYMPHOCYTES % (AUTO) 15.8 % (13-45); MEAN CORPUSCULAR HEMOGLOBIN 31.8 pg (27.0-33.4); MEAN CORPUSCULAR HGB CONC 33.6 g/dL (32.0-36.0); MEAN CORPUSCULAR VOLUME 95 fl (80-97); MONOCYTES % (AUTO) 8.8 % (3-13); PLATELET COUNT 662 10^3/uL (150-450); RED BLOOD COUNT 3.77 10^6/uL (3.72-5.28); RED CELL DISTRIBUTION WIDTH 17.9 % (11.5-14.0); SEGMENTED NEUTROPHILS % (AUTO) 73.4 % (42-78); TOTAL CELLS COUNTED % (AUTO) 100 %
[2017-07-31 13:52] LABS: ALANINE AMINOTRANSFERASE 20 U/L (9-52); ALBUMIN 3.6 g/dL (3.5-5.0); ALKALINE PHOSPHATASE 95 U/L (38-126); ANION GAP 8 (5-19); ASPARTATE AMINO TRANSFERASE 30 U/L (14-36); BILIRUBIN,DIRECT 0.4 mg/dL (0.0-0.4); BILIRUBIN,TOTAL 0.4 mg/dL (0.2-1.3); BLOOD UREA NITROGEN 13 mg/dL (7-20); CALCIUM 8.9 mg/dL (8.4-10.2); CARBON DIOXIDE 29 mmol/L (22-30); CHLORIDE 106 mmol/L (98-107); GLUCOSE 95 mg/dL (75-110); POTASSIUM 3.9 mmol/L (3.6-5.0); SODIUM 142.6 mmol/L (137-145); TOTAL PROTEIN 7.6 g/dL (6.3-8.2)
[2017-07-31 14:36] LABS: APPEARANCE,URINE SLIGHTLY-CLOUDY; BILIRUBIN,URINE NEGATIVE (NEGATIVE); COLOR,URINE YELLOW; GLUCOSE, URINE NEGATIVE (NEGATIVE); KETONES,URINE NEGATIVE (NEGATIVE); LEUKOCYTE ESTERASE,URINE NEGATIVE (NEGATIVE); NITRITE,URINE NEGATIVE (NEGATIVE); PROTEIN,URINE NEGATIVE (NEGATIVE)
--- NOTE | 2017-07-31 15:54 | RADIOLOGY REPORT (SQ) ---
EXAM DESCRIPTION: CT ABD/PELVIS WITH IV ORAL COMPLETED DATE/TIME: 07/31/2017 3:33 pm REASON FOR STUDY: crohn's, vomiting, diarrhea, abd pain COMPARISON: None. TECHNIQUE: CT scan of the abdomen and pelvis performed using helical scanning technique with dynamic intravenous contrast injection. No oral contrast. Images reviewed with lung, soft tissue, and bone windows. Reconstructed coronal and sagittal MPR images reviewed. Delayed images for evaluation of the urinary system also acquired. All images stored on PACS. All CT scanners at this facility use dose modulation, iterative reconstruction, and/or weight based d osing when appropriate to reduce radiation dose to as low as reasonably achievable (ALARA). [facility]: Dose Right [facility]: CareDose [facility]: Dose Right [facility]: Teradose 4D [facility]: Algorithmia CONTRAST TYPE AND DOSE: contrast/concentration: Isovue 370.00 mg/ml; Total Contrast Delivered: 45.0 ml; Total Saline Delivered: 18.8 ml RENAL FUNCTION: None required. The patient is less than 50 years old. RADIATION DOSE: CT Rad equipment meets quality standard of care and radiation dose reduction techniq ues were employed. CTDIvol: 4.8 mGy. DLP: 497 mGy-cm.. LIMITATIONS: No intravenous contrast present on the contrast images. There is however contrast note d on the delayed images within the urinary collecting system. FINDINGS: LOWER CHEST: Stable scarring in the right lung base. LIVER: Limited evaluation secondary to lack of contrast enhancement. No gross abnormalities. SPLEEN: Limited evaluation secondary to lack contrast. No gross abnormalities. PANCREAS: Limited by lack of IV contrast. No gross abnormalities. GALLBLADDER: No identified stones by CT criteria. No inflammatory changes to suggest cholecystitis. ADRENAL GLANDS: No significant masses or asymmetry. RIGHT KIDNEY AND URETER: Limited secondary to lack of IV contrast. No gross abnormalities. No sign ificant calcifications. No hydronephrosis or hydroureter. LEFT KIDNEY AND URETER: Limited secondary to lack of IV contrast. No gross abnormalities. No signi ficant calcifications. No hydronephrosis or hydroureter. AORTA AND VESSELS: Grossly unremarkable noncontrast appearance. RETROPERITONEUM: Limited evaluation secondary to paucity of intra-abdominal fat and lack of IV contra st. No definite retroperitoneal adenopathy appreciated. BOWEL AND PERITONEAL CAVITY: Limited evaluation secondary to lack of IV contrast. Bowel looks simila r to prior exams. There is small amount of free fluid noted within the abdomen. No free air noted w ithin the abdomen. No dilated loops of bowel to suggest obstruction. APPENDIX: Not visualized. PELVIS: Small amount of free fluid noted. ABDOMINAL WALL: No masses. No hernias. BONES: No significant or acute findings. OTHER: No other significant finding. IMPRESSION: Limited exam secondary to lack of IV contrast. Some free fluid in the abdomen and pelvi s likely represent intra-abdominal inflammatory change, however the exact location is not ascertained secondary to the contrast limitations. TECHNICAL DOCUMENTATION: JOB ID: [id number] Quality ID # [id number]: Final reports with documentation of one or more dose reduction techniques (e.g., Au tomated exposure control, adjustment of the mA and/or kV according to patient size, use of iterative reconstruction technique) 2010 [employer]- All Rights Reserved Reading location - IP/workstation name: [email or web address]
--- NOTE | 2017-07-31 16:22 | ER Document Report ---
ED GI/ - General Chief Complaint: Abdominal Pain Stated Complaint: ABDOMINAL PAIN Time Seen by Provider: 07/31/17 12:12 Mode of Arrival: Ambulatory Information source: Patient Notes: Patient is a 46-year-old female with Crohn's disease who presents to the ER today for abdominal pain to the middle of her abdomen times approximately a week with nausea and vomiting, diarrhea. Patient states the diarrhea is normal for her. She denies any fevers or chills. She states she has been unable to drink anything or eat anything for the last couple of days due to the pain and nausea. Patient is currently not seeing plan nurse because she "cannot afford it." She denies any blood in her diarrhea or vomit. TRAVEL OUTSIDE OF THE [place] IN LAST 30 DAYS: No - Related Data Allergies/Adverse Reactions: ceftriaxone sodium [From Rocephin] Allergy (Severe, Verified 07/31/17 12:05) Anaphylaxis Ciprofloxacin Lactate [From Cipro I.V.] Allergy (Intermediate, Verified 12:05) Hives morphine Allergy (Verified 07/31/17 12:05) aspirin [Aspirin] Adverse Reaction (Intermediate, Verified 07/31/17 12:05) GI distress tramadol [Tramadol] Adverse Reaction (Intermediate, Verified 07/31/17 12:05) GI upset Past Medical History - General Information source: Patient - Social History Smoking Status: Current Every Day Smoker Chew tobacco use (# tins/day): No Frequency of alcohol use: None Drug Abuse: Cocaine Family History: Hypertension, Malignancy - Lung cancer Patient has suicidal ideation: No Patient has homicidal ideation: No - Past Medical History Cardiac Medical History: Denies: Hx Heart Attack, Hx Hypercholesterolemia, Hx Hypertension Pulmonary Medical History: Reports: Hx Pneumonia Denies: Hx Asthma, Hx Bronchitis, Hx COPD, Hx Tuberculosis Neurological Medical History: Denies: Hx Seizures Endocrine Medical History: Denies: Hx Diabetes Mellitus Type 2, Hx Hyperthyroidism, Hx Hypothyroidism Renal/ Medical History: Denies: Hx Peritoneal Dialysis GI Medical History: Reports: Hx Crohn's Disease Psychiatric Medical History: Reports: Hx Depression Infectious Medical History: Denies: Hx C-Diff Past Surgical History: Reports: Hx Abdominal Surgery - fistula, Hx Tubal Ligation, Other - Exploratory laparoscopy and limited exploratory laparotomy in July 2015.. Denies: Hx Hysterectomy, Hx Pacemaker - Immunizations Hx Diphtheria, Pertussis, Tetanus Vaccination: Yes Review of Systems - Review of Systems Constitutional: No symptoms reported EENT: No symptoms reported Cardiovascular: No symptoms reported Respiratory: No symptoms reported Gastrointestinal: See HPI Genitourinary: No symptoms reported Female Genitourinary: No symptoms reported Musculoskeletal: No symptoms reported Skin: No symptoms reported Hematologic/Lymphatic: No symptoms reported Neurological/Psychological: No symptoms reported Physical Exam - Vital signs Vitals: Temp Pulse Resp BP Pulse Ox 98.1 F 97 22 H 135/91 H 97 07/31/17 11:56 07/31/17 11:56 07/31/17 11:56 07/31/17 11:56 07/31/17 11:56 - Notes Notes: PHYSICAL EXAMINATION: GENERAL: Uncomfortable appearing, cachectic, but in no acute distress. HEAD: Atraumatic, normocephalic. EYES: Pupils equal round and reactive to light, extraocular movements intact, sclera anicteric, conjunctiva are normal. NECK: Normal range of motion, supple without lymphadenopathy LUNGS: CTAB and equal. No wheezes rales or rhonchi. HEART: Regular rate and rhythm without murmurs ABDOMEN: Soft, mild diffuse tenderness. No guarding, no rebound BACK: no vertebral tenderness, normal ROM GI/: no CVA tenderness EXTREMITIES: Normal range of motion, no pitting edema. No cyanosis. NEUROLOGICAL: Cranial nerves grossly intact. Normal sensory/motor exams. PSYCH: Normal mood, normal affect. SKIN: Warm, Dry, normal turgor, no rashes or lesions noted Course - Re-evaluation Re-evalutation: 08/01/17 18:14 Patient received multiple narcotic pain medications here and continue to ask for more, patient was upset when I would not give her any more. Patient tolerated p.o. contrast very well without any vomiting, CAT scan with IV and oral contrast reports no acute pathology, on review of the CAT scan it is obvious that there is oral contrast in the colon although radiologist states that there is no oral contrast noted in the colon. Patient eloped before I could give her CAT scan results. - Vital Signs Vital signs: Temp Pulse Resp BP Pulse Ox 98.1 F 97 22 H 135/91 H 97 07/31/17 11:56 07/31/17 11:56 07/31/17 11:56 07/31/17 11:56 07/31/17 11:56 - Laboratory Result Diagrams: 07/31/17 13:05 07/31/17 13:05 Laboratory results interpreted by me: 07/31/17 07/31/17 13:05 13:46 Hct 35.7 L RDW 17.9 H Plt Count 662 H Urine Urobilinogen 4.0 H Discharge - Discharge Clinical Impression: Crohns disease Qualifiers: Gastrointestinal tract location: unspecified location Digestive disease complication type: unspecified complication Qualified Code(s): K50.919 - Crohn' s disease, unspecified, with unspecified complications Condition: Stable Disposition: HOME, SELF-CARE Additional Instructions: Return immediately for any new or worsening symptoms. Follow up with primary care provider, call tomorrow to make followup appointment. Prescriptions: Prednisone 60 mg PO DAILY #30 tablet Referrals: OREN SEYMOUR MD [Primary Care Provider] - Follow up as needed
== END 2017-07-31 16:27 | disposition home or self-care (01) ==
LOC: ER 11:51
DX: K50.919 Crohn's disease, unspecified, with unspecified complications (principal); R10.9 Unspecified abdominal pain; R11.2 Nausea with vomiting, unspecified; R19.7 Diarrhea, unspecified; F17.200 Nicotine dependence, unspecified, uncomplicated
CPT/HCPCS: 99284; 96361; 96374; 96375; 36415; 84703; 85025; 80053; 81001; 74177; J1170; J2405; J7030

== ENCOUNTER 2017-10-08 02:35 | Emergency (ER) | payer SELFPAY ==
[2017-10-08] MEDS ORDERED: NORMAL SALINE 1000 ML 1,000 ML IV ONE (08:17)
[2017-10-08] MEDS ORDERED: DIPHENHYDRAMINE HCL 50 MG/ML VIAL IV ONE (08:32)
[2017-10-08] MEDS ORDERED: METHYLPREDNISOLONE INJ 125 MG/2 ML SDV IV ONE (08:32)
[2017-10-08] MEDS ORDERED: METOCLOPRAMIDE HCL INJ/PF 10 MG/2 ML SDV IV ONE (08:32)
[2017-10-08] MEDS ORDERED: HYDROMORPHONE HCL INJ/PF 2 MG/ML AMPULE IV ONE (08:36)
--- NOTE | 2017-10-08 08:53 | RADIOLOGY REPORT (SQ) ---
EXAM DESCRIPTION: ACUTE ABDOMEN SERIES COMPLETED DATE/TIME: 10/08/2017 8:44 am REASON FOR STUDY: abd pain COMPARISON: 02/02/2017 NUMBER OF VIEWS: Three views. TECHNIQUE: Frontal chest, supine abdomen and upright/decubitus abdomen radiographic images acquired. LIMITATIONS: None. FINDINGS: CHEST: Lungs clear of infiltrates. FREE AIR: None. No abnormal gas collections. BOWEL GAS PATTERN: Nonobstructive pattern. No dilated loops or air fluid levels. CALCIFICATIONS: No suspicious calcifications. HARDWARE: None in the abdomen. SOFT TISSUES: No gross mass or suggestion of organomegaly. BONES: No acute fracture. No worrisome bone lesions. OTHER: No other significant finding. IMPRESSION: NO RADIOGRAPHIC EVIDENCE FOR ACUTE ABDOMINAL DISEASE. TECHNICAL DOCUMENTATION: JOB ID: [id number] [employer]- All Rights Reserved Reading location - IP/workstation name: [email or web address]
[2017-10-08 09:05] LABS: ABSOLUTE EOSINOPHILS # (AUTO) 0.2 10^3/uL (0.0-0.6); ABSOLUTE MONOCYTES (AUTO) 0.5 10^3/uL (0.1-1.4); ABSOLUTE NEUT (AUTO) 5.1 10^3/uL (1.7-8.2); BASOPHILS % (AUTO) 0.7 % (0-2); EOSINOPHILS % (AUTO) 2.7 % (0-6); HEMATOCRIT 33.6 % (36.0-47.0); HEMOGLOBIN 11.2 g/dL (12.0-15.5); LYMPHOCYTES % (AUTO) 14.5 % (13-45); MEAN CORPUSCULAR HEMOGLOBIN 31.2 pg (27.0-33.4); MEAN CORPUSCULAR HGB CONC 33.2 g/dL (32.0-36.0); MEAN CORPUSCULAR VOLUME 94 fl (80-97); MONOCYTES % (AUTO) 6.8 % (3-13); PLATELET COUNT 763 10^3/uL (150-450); RED BLOOD COUNT 3.58 10^6/uL (3.72-5.28); RED CELL DISTRIBUTION WIDTH 15.4 % (11.5-14.0); SEGMENTED NEUTROPHILS % (AUTO) 75.3 % (42-78); TOTAL CELLS COUNTED % (AUTO) 100 %; WHITE BLOOD COUNT 6.7 10^3/uL (4.0-10.5)
[2017-10-08 09:30] LABS: ALANINE AMINOTRANSFERASE 30 U/L (9-52); ALBUMIN 2.5 g/dL (3.5-5.0); ALKALINE PHOSPHATASE 95 U/L (38-126); ANION GAP 8 (5-19); ASPARTATE AMINO TRANSFERASE 19 U/L (14-36); BILIRUBIN,DIRECT 0.3 mg/dL (0.0-0.4); BILIRUBIN,TOTAL 0.3 mg/dL (0.2-1.3); BLOOD UREA NITROGEN 19 mg/dL (7-20); C-REACTIVE PROTEIN 10.6 mg/L (<10.0); CALCIUM 8.5 mg/dL (8.4-10.2); CARBON DIOXIDE 28 mmol/L (22-30); CHLORIDE 109 mmol/L (98-107); GLUCOSE 76 mg/dL (75-110); LIPASE 27.9 U/L (23-300); SODIUM 145.4 mmol/L (137-145); TOTAL PROTEIN 5.9 g/dL (6.3-8.2)
[2017-10-08 09:53] LABS: ERYTHROCYTE SEDIMENTATION RATE 44 mm/hr (0-20)
[2017-10-08] MEDS ORDERED: DICYCLOMINE HCL INJ 20 MG/2 ML AMPULE IM ONE (11:59)
--- NOTE | 2017-10-08 12:00 | ER Document Report ---
ED General - General Chief Complaint: Abdominal Pain Stated Complaint: ABDOMINAL PAIN Time Seen by Provider: 10/08/17 08:15 TRAVEL OUTSIDE OF THE [place] IN LAST 30 DAYS: No - HPI Patient complains to provider of: Abdominal pain Notes: Patient coming in for diffuse abdominal pain patient states has a history of Crohn's disease however is currently not on any medications last time patient had was only steroids was approximately 2 months ago. Patient states unfortunately she is unable to afford any follow-up does not have a GI physician patient is unable to give me a name of her Crohn's medication that she was on prior to losing her insurance. Patient denies any fevers denies any vomiting states chronic nausea chronic diarrhea. Patient denies any trauma to the area denies being . Patient initially was states she smokes cigarettes and does not drink any alcohol or uses any drugs. Upon my evaluation patient initially resting comfortably after introduced myself begins to hold her abdomen right back and forth. Patient shows otherwise no signs of any obvious distress - Related Data Allergies/Adverse Reactions: ceftriaxone sodium [From Rocephin] Allergy (Severe, Verified 10/08/17 02:37) Anaphylaxis Ciprofloxacin Lactate [From Cipro I.V.] Allergy (Intermediate, Verified 02:37) Hives morphine Allergy (Verified 10/08/17 02:37) aspirin [Aspirin] Adverse Reaction (Intermediate, Verified 10/08/17 02:37) GI distress tramadol [Tramadol] Adverse Reaction (Intermediate, Verified 10/08/17 02:37) GI upset Past Medical History - Social History Smoking Status: Current Every Day Smoker Chew tobacco use (# tins/day): No Frequency of alcohol use: None Drug Abuse: Cocaine, Marijuana Family History: Hypertension, Malignancy - Lung cancer Patient has suicidal ideation: No Patient has homicidal ideation: No - Past Medical History Cardiac Medical History: Denies: Hx Heart Attack, Hx Hypercholesterolemia, Hx Hypertension Pulmonary Medical History: Reports: Hx Pneumonia Denies: Hx Asthma, Hx Bronchitis, Hx COPD, Hx Tuberculosis Neurological Medical History: Denies: Hx Seizures Endocrine Medical History: Denies: Hx Diabetes Mellitus Type 2, Hx Hyperthyroidism, Hx Hypothyroidism Renal/ Medical History: Denies: Hx Peritoneal Dialysis GI Medical History: Reports: Hx Crohn's Disease Psychiatric Medical History: Reports: Hx Depression Infectious Medical History: Denies: Hx C-Diff Past Surgical History: Reports: Hx Abdominal Surgery - fistula, Hx Tubal Ligation, Other - Exploratory laparoscopy and limited exploratory laparotomy in July 2015.. Denies: Hx Hysterectomy, Hx Pacemaker - Immunizations Hx Diphtheria, Pertussis, Tetanus Vaccination: Yes Review of Systems - Review of Systems Constitutional: No symptoms reported EENT: No symptoms reported Cardiovascular: No symptoms reported Respiratory: No symptoms reported Gastrointestinal: Abdominal pain, Diarrhea Genitourinary: No symptoms reported Female Genitourinary: No symptoms reported Musculoskeletal: No symptoms reported Skin: No symptoms reported Hematologic/Lymphatic: No symptoms reported Neurological/Psychological: No symptoms reported -: Yes All other systems reviewed and negative Physical Exam - Vital signs Vitals: Temp Pulse Resp BP Pulse Ox 97.9 F 87 20 125/84 99 10/08/17 02:40 10/08/17 02:40 10/08/17 02:40 10/08/17 02:40 10/08/17 02:40 Interpretation: Normal - General General appearance: Appears well, Alert - HEENT Head: Normocephalic, Atraumatic Eyes: Normal Pupils: PERRL - Respiratory Respiratory status: No respiratory distress Chest status: Nontender Breath sounds: Normal Chest palpation: Normal - Cardiovascular Rhythm: Regular Heart sounds: Normal auscultation Murmur: No - Abdominal Inspection: Normal Distension: No distension Bowel sounds: Normal Tenderness: Nontender Organomegaly: No organomegaly - Back Back: Normal, Nontender - Extremities General upper extremity: Normal inspection, Nontender, Normal color, Normal ROM , Normal temperature General lower extremity: Normal inspection, Nontender, Normal color, Normal ROM , Normal temperature, Normal weight bearing. No: Sarah's sign - Neurological Neuro grossly intact: Yes Cognition: Normal Orientation: AAOx4 Fredy Coma Scale Eye Opening: Spontaneous Fredy Coma Scale Verbal: Oriented Fredy Coma Scale Motor: Obeys Commands Fredy Coma Scale Total: 15 Speech: Normal Motor strength normal: LUE, RUE, LLE, RLE Sensory: Normal - Psychological Associated symptoms: Normal affect, Normal mood - Skin Skin Temperature: Warm Skin Moisture: Dry Skin Color: Normal Course - Re-evaluation Re-evalutation: 10/08/17 15:30 Laboratory studies not show any significant pathology. No leukocytosis patient remained afebrile during her stay here. After my initial evaluation was notified by the nursing staff the patient did admit to the nurses to using marijuana and cocaine recently. After medications were given to reevaluate the patient patient sleeping easily arousable. Patient has very minimal elevation in her inflammatory markers no significant change in her CRP slight elevation in her ESR. Overall picture is not really consistent with the significant overall Crohn's flare. Patient was encouraged follow-up with her primary care physician patient states she has an appointment to see the [facility] in the upcoming few days. Patient will be given Bentyl for home - Vital Signs Vital signs: Temp Pulse Resp BP Pulse Ox 98.0 F 84 20 122/84 98 10/08/17 12:21 10/08/17 12:21 10/08/17 12:21 10/08/17 12:21 10/08/17 12:21 - Laboratory Result Diagrams: 10/08/17 08:35 10/08/17 08:35 Laboratory results interpreted by me: 10/08/17 10/08/17 08:35 08:35 RBC 3.58 L Hgb 11.2 L Hct 33.6 L RDW 15.4 H Plt Count 763 H ESR 44 H Sodium 145.4 H Chloride 109 H C-Reactive Protein 10.6 H Total Protein 5.9 L Albumin 2.5 L Discharge - Discharge Clinical Impression: Abdominal pain Qualifiers: Abdominal location: unspecified location Qualified Code(s): R10.9 - Unspecified abdominal pain Condition: Good Disposition: HOME, SELF-CARE Instructions: Abdominal Pain ([facility]) Additional Instructions: Your abdominal examination today show no signs of surgical pathology serious infection. I recommend following up with the clinic provided. Please continue with the steroids as prescribed and the Bentyl for your pain control would also recommend taking Tylenol Motrin for pain control. Please make sure you are drinking plenty of fluids to stay hydrated return to ER for any significant issues. Prescriptions: Dicyclomine HCl [Bentyl 20 mg Tablet] 20 mg PO QID #30 tablet Prednisone [Deltasone 20 mg Tablet] 3 tab PO DAILY 5 Days tablet Forms: Return to Work
[2017-10-08 12:22] VITALS: BP 122/84
== END 2017-10-08 12:22 | disposition home or self-care (01) ==
LOC: ER 02:35
DX: R10.9 Unspecified abdominal pain (principal); F17.210 Nicotine dependence, cigarettes, uncomplicated; Z88.3 Allergy status to other anti-infective agents; Z88.6 Allergy status to analgesic agent; Z98.51 Tubal ligation status
CPT/HCPCS: 99284; 96361; 96374; 96375; 36415; 83690; 85025; 85652; 86140; 80053; 74022; J1200; J2930; J2765; J7030

== ENCOUNTER 2018-01-13 19:28 | Emergency (ER) | payer SELFPAY ==
[2018-01-13] MEDS ORDERED: NORMAL SALINE 1000 ML 1,000 ML IV ONE ×2 (21:28→22:47)
[2018-01-13] MEDS ORDERED: DIPHENHYDRAMINE HCL 50 MG/ML VIAL IV ONE (21:29)
[2018-01-13] MEDS ORDERED: ONDANSETRON HCL INJ/PF 4 MG/2 ML SDV IV ONE (21:29)
[2018-01-13] MEDS ORDERED: HYDROMORPHONE HCL INJ/PF 2 MG/ML AMPULE IV ONE ×2 (21:29→23:12)
--- NOTE | 2018-01-13 21:33 | ER Document Report ---
ED General - General Chief Complaint: Abdominal Pain Stated Complaint: ABDOMINAL PAIN Time Seen by Provider: 01/13/18 21:28 Mode of Arrival: Medic Information source: Patient Notes: This is a 47-year-old female with a history of Crohn's disease who presents to the emergency room with abdominal pain times 1 week. Patient denies fever. Patient reports decreased p.o. intake and diarrhea. TRAVEL OUTSIDE OF THE [place] IN LAST 30 DAYS: No - HPI Onset: Last week Onset/Duration: Gradual Quality of pain: Dull Severity: Moderate Pain Level: 2 Associated symptoms: denies: Chest pain, Fever, Shortness of breath Exacerbated by: Denies Relieved by: Denies Similar symptoms previously: Yes Recently seen / treated by doctor: No - Related Data Allergies/Adverse Reactions: ceftriaxone sodium [From Rocephin] Allergy (Severe, Verified 10/08/17 02:37) Anaphylaxis Ciprofloxacin Lactate [From Cipro I.V.] Allergy (Intermediate, Verified 02:37) Hives morphine Allergy (Verified 10/08/17 02:37) aspirin [Aspirin] Adverse Reaction (Intermediate, Verified 10/08/17 02:37) GI distress tramadol [Tramadol] Adverse Reaction (Intermediate, Verified 10/08/17 02:37) GI upset Past Medical History - General Information source: Patient - Social History Smoking Status: Never Smoker Cigarette use (# per day): No Chew tobacco use (# tins/day): No Frequency of alcohol use: None Drug Abuse: None Lives with: Family Family History: Hypertension, Malignancy - Lung cancer Patient has suicidal ideation: No Patient has homicidal ideation: No - Past Medical History Cardiac Medical History: Denies: Hx Heart Attack, Hx Hypercholesterolemia, Hx Hypertension Pulmonary Medical History: Reports: Hx Pneumonia Denies: Hx Asthma, Hx Bronchitis, Hx COPD, Hx Tuberculosis Neurological Medical History: Denies: Hx Seizures Endocrine Medical History: Denies: Hx Diabetes Mellitus Type 2, Hx Hyperthyroidism, Hx Hypothyroidism Renal/ Medical History: Denies: Hx Peritoneal Dialysis GI Medical History: Reports: Hx Crohn's Disease Psychiatric Medical History: Reports: Hx Depression Infectious Medical History: Denies: Hx C-Diff Past Surgical History: Reports: Hx Abdominal Surgery - fistula, Hx Tubal Ligation, Other - Exploratory laparoscopy and limited exploratory laparotomy in July 2015.. Denies: Hx Hysterectomy, Hx Pacemaker - Immunizations Hx Diphtheria, Pertussis, Tetanus Vaccination: Yes Review of Systems - Review of Systems Constitutional: denies: Chills, Fever EENT: No symptoms reported Cardiovascular: No symptoms reported Respiratory: No symptoms reported Gastrointestinal: See HPI Genitourinary: No symptoms reported Female Genitourinary: No symptoms reported Musculoskeletal: No symptoms reported Skin: No symptoms reported Hematologic/Lymphatic: No symptoms reported Neurological/Psychological: No symptoms reported Physical Exam - Vital signs Vitals: Temp Pulse Resp BP Pulse Ox 98.4 F 87 14 122/83 97 01/13/18 19:29 01/13/18 19:29 01/13/18 19:29 01/13/18 19:29 01/13/18 19:29 Notes: Physical exam: GENERAL: Patient is alert and oriented x3, no acute stress HEAD: Atraumatic, normocephalic. EYES: Pupils equal round and reactive to light, extraocular movements intact, sclera anicteric, conjunctiva are normal. ENT: TMs normal, nares patent, oropharynx clear without exudates. Moist mucous membranes. NECK: Normal range of motion, supple without obvious mass or JVD. LUNGS: Breath sounds clear to auscultation bilaterally and equal. No wheezes rales or rhonchi. HEART: Regular rate and rhythm without murmurs, rubs or gallops. ABDOMEN: Soft, normoactive bowel sounds. Patient does have diffuse tenderness to palpation. No guarding, no rebound. No masses appreciated. EXTREMITIES: Normal range of motion, no pitting or edema. No clubbing or cyanosis. NEUROLOGICAL: Cranial nerves II through XII grossly intact. Normal speech, moving all extremities. PSYCH: Normal mood, normal affect. SKIN: Warm, Dry, normal turgor, no rashes or lesions noted. Course - Re-evaluation Re-evalutation: 01/14/18 00:44 Note: I discussed the radiology findings with Dr. Matta: The patient does have inflammation in the lower abdomen with thickening of the bowel wall with some edema which is consistent with a Crohn's flare. The plan would be IV fluids, IV antibiotics, IV steroids. I did discuss the finding of an aortic thrombus with her and discussed that sometimes we give blood thinners for this. I discussed the case with Dr. Quan who will admit the patient to the medicine floor for the plan above. I discussed the case with the patient and she is adamantly against it. She states that she has had steroids, antibiotics and pain medicine orally as an outpatient and is done just fine and that she wants to go home. I discussed the findings of this CT report which showed inflammation and she said that she has had that before and she knows her body and she does not want to be admitted. I went over the risks of leaving (bowel perforation, sepsis) and the benefits of getting the medicines IV so we could watch her closely but still she is quite adamant about leaving. Given this, I will start her on steroids here and send her home with prednisone taper, pain medicine, antiemetics and Flagyl. She states she has followed up with a GI doctor advised him to in the past and has applied for Medicaid and will attempt to follow-up with them again. 01/14/18 00:59 - Vital Signs Vital signs: Temp Pulse Resp BP Pulse Ox 98.4 F 87 14 122/83 97 01/13/18 19:29 01/13/18 19:29 01/13/18 19:29 01/13/18 19:29 01/13/18 19:29 - Laboratory Result Diagrams: 01/13/18 22:00 01/13/18 22:00 Laboratory results interpreted by me: 01/13/18 01/13/18 22:00 22:00 WBC 11.3 H RBC 3.48 L Hgb 10.6 L Hct 32.2 L RDW 15.5 H Plt Count 538 H Seg Neutrophils % 83.8 H Lymphocytes % 8.2 L Absolute Neutrophils 9.5 H Chloride 108 H Total Protein 6.2 L Albumin 2.7 L Lipase 21.6 L Discharge - Discharge Clinical Impression: Crohn's flare Condition: Stable Disposition: AGAINST MEDICAL ADVICE Additional Instructions: As we discussed, would rather have you been admitted to the hospital. So if you develop worsening pain, fever, not being able to tolerate medicines or food or liquid, return to the emergency room. You are going to need to follow-up with a specialized GI doctor. I recommend trying [facility] where you have been there in the past, or you could try the [facility] for inflammatory bowel disease [facility] [phone] As far as the prednisone: Take 4 tabs X3 days, then 3 tabs X 3 days, then 2 tabs X 3days, then 1 tab X 3 days, then 1/2 tab X 4 days, then stop. Take the oxycodone as prescribed. Take Zofran for nausea. Take the antibiotic as prescribed. The pain medicine you're taking prescribed as a narcotic. There are several important things you should know about this medicine: 1. Taking narcotics for too long can lead to physical and mental dependence. Take this medicine only if really needed and in the lowest quantity to achieve pain relief. 2. Do not drink alcohol while on this medicine. Alcohol interacts with narcotics and the combination can be dangerous. 3. Do not drive or operate machinery while on this medicine. 4. Narcotics do cause constipation, so drink plenty of fluids and daily stool softeners. Prescriptions: Oxycodone HCl 5 mg PO Q6HP PRN #25 tablet PRN Reason: Metronidazole [Flagyl 500 mg Tablet] 500 mg PO TID #30 tablet Ondansetron HCl [Zofran 4 mg Tablet] 1 - 2 tab PO Q4H PRN #10 tablet PRN Reason: Prednisone 10 mg PO DAILY #27 tablet
[2018-01-13 22:29] LABS: ABSOLUTE BASOPHILS # (AUTO) 0.1 10^3/uL (0.0-0.2); ABSOLUTE EOSINOPHILS # (AUTO) 0.1 10^3/uL (0.0-0.6); ABSOLUTE LYMPHOCYTES (AUTO) 0.9 10^3/uL (0.5-4.7); ABSOLUTE MONOCYTES (AUTO) 0.7 10^3/uL (0.1-1.4); ABSOLUTE NEUT (AUTO) 9.5 10^3/uL (1.7-8.2); BASOPHILS % (AUTO) 0.9 % (0-2); EOSINOPHILS % (AUTO) 1.1 % (0-6); HEMATOCRIT 32.2 % (36.0-47.0); HEMOGLOBIN 10.6 g/dL (12.0-15.5); LYMPHOCYTES % (AUTO) 8.2 % (13-45); MEAN CORPUSCULAR HEMOGLOBIN 30.4 pg (27.0-33.4); MEAN CORPUSCULAR HGB CONC 32.9 g/dL (32.0-36.0); MEAN CORPUSCULAR VOLUME 93 fl (80-97); PLATELET COUNT 538 10^3/uL (150-450); RED BLOOD COUNT 3.48 10^6/uL (3.72-5.28); RED CELL DISTRIBUTION WIDTH 15.5 % (11.5-14.0); SEGMENTED NEUTROPHILS % (AUTO) 83.8 % (42-78); TOTAL CELLS COUNTED % (AUTO) 100 %; WHITE BLOOD COUNT 11.3 10^3/uL (4.0-10.5)
[2018-01-13 23:02] LABS: ALANINE AMINOTRANSFERASE 27 U/L (9-52); ALBUMIN 2.7 g/dL (3.5-5.0); ALKALINE PHOSPHATASE 94 U/L (38-126); ANION GAP 9 (5-19); ASPARTATE AMINO TRANSFERASE 28 U/L (14-36); BILIRUBIN,DIRECT 0.4 mg/dL (0.0-0.4); BILIRUBIN,TOTAL 0.4 mg/dL (0.2-1.3); BLOOD UREA NITROGEN 17 mg/dL (7-20); CALCIUM 8.8 mg/dL (8.4-10.2); CARBON DIOXIDE 24 mmol/L (22-30); CHLORIDE 108 mmol/L (98-107); GLUCOSE 94 mg/dL (75-110); LIPASE 21.6 U/L (23-300); POTASSIUM 4.5 mmol/L (3.6-5.0); SODIUM 140.5 mmol/L (137-145); TOTAL PROTEIN 6.2 g/dL (6.3-8.2)
--- NOTE | 2018-01-14 00:34 | RADIOLOGY REPORT (SQ) ---
CLINICAL DATA: 47-year-old female with history of Crohn's disease and abdominal discomfort. TECHNICAL DATA: Axial CT imaging of the abdomen and pelvis was performed following the administration of intravenous contrast.. Sagittal and coronal reconstructed images were then performed. The CT study is performed according to ALARA (as low as reasonably achievable) or ALARA/IMAGE GENTLY, with automatic adjustment of mA and/or kV according to patient size. Comparison: Prior CT abdomen and pelvis performed on 07/31/2017. FINDINGS: Lung bases: The lung bases are clear. Liver: The liver is mildly enlarged and measures 18 cm in craniocaudal dimension. There is decreased attenuation of the liver commonly seen with fatty infiltration. No focal hepatic abnormalities are identified. There is no evidence of intrahepatic duct dilatation. Spleen:The spleen is normal is size, configuration and attenuation. Gallbladder and bile duct: The gallbladder is well distended and unremarkable. There is no biliary ductal dilatation. Pancreas: The pancreas is grossly normal in size and configuration. Adrenal Glands:The adrenal glands are normal in size and configuration. Kidneys:The kidneys are normal in size and configuration. There is no evidence of hydronephrosis. There is no evidence of nephrolithiasis. No definite solid or cystic renal mass lesions are identified. Stomach:The stomach is grossly normal. There is no definite hiatal hernia. Bowel:The bowel gas pattern is non specific and non obstructive. There is infiltration of the mesenteric fat in the right lower quadrant. The bowel is poorly delineated in the right lower quadrant and an inflammatory process is not excluded. There also appears to be bowel wall thickening involving small bowel loops in the right lower quadrant. Appendix: The appendix is not well delineated on this examination. Free air:There is no evidence of free air. Free fluid: There is no evidence of free fluid. Vasculature: The aorta is normal in caliber and contour. There are a couple of intraluminal filling defects within the abdominal aorta best appreciated at the level of L1 concerning for intra-arterial thrombus. The inferior vena cava is grossly unremarkable. Lymphadenopathy: No pathologic lymphadenopathy is identified. Bladder: The bladder is well distended and smooth in contour. Reproductive: The uterus is grossly within normal limits. Bones: No acute osseous abnormalities are identified. Soft tissues: No focal soft tissue abnormalities are identified. IMPRESSION: 1. There is infiltration of the mesenteric fat in the right lower quadrant with poor delineation of the bowel loops and apparent small bowel wall thickening concerning for an infectious or inflammatory process. 2. 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 3. Mild hepatomegaly and overall decreased attenuation of the liver commonly seen with fatty infiltration. These findings were discussed with Dr. Tai Velázquez on 01/13/2018 at 11:32 PM Central time
[2018-01-14] MEDS ORDERED: METHYLPREDNISOLONE INJ 125 MG/2 ML SDV IV ONE (00:42)
[2018-01-14] MEDS ORDERED: HYDROMORPHONE HCL INJ/PF 2 MG/ML AMPULE IV ONE (00:42)
[2018-01-14] MEDS ORDERED: ONDANSETRON HCL INJ/PF 4 MG/2 ML SDV IV ONE (00:42)
[2018-01-14] MEDS ORDERED: HYDROCODONE/ACETAMINOPHEN 5-325 MG (6 TAB/ER DISP) PO PRN (00:53)
[2018-01-14] MEDS ORDERED: ONDANSETRON ODT 4 MG TAB (6 TAB/ER DISP) PO PRN (00:54)
[2018-01-14 01:07] VITALS: BP 120/78
== END 2018-01-14 01:07 | disposition left against medical advice (07) ==
LOC: ER 19:28
DX: K50.90 Crohn's disease, unspecified, without complications (principal); R10.9 Unspecified abdominal pain; Z88.3 Allergy status to other anti-infective agents; Z88.6 Allergy status to analgesic agent; Z98.51 Tubal ligation status
CPT/HCPCS: 96376; 99284; 96361; 96374; 96375; 36415; 83690; 85025; 80053; 74177; J1200; J2930; J1170 ×2; J2405 ×2; J7030

== ENCOUNTER 2018-02-01 11:50 | Emergency (ER) | payer SELFPAY ==
[2018-02-01] MEDS ORDERED: NORMAL SALINE 1000 ML 1,000 ML IV ONE (12:25)
[2018-02-01] MEDS ORDERED: HYDROMORPHONE HCL INJ/PF 2 MG/ML AMPULE IV ONE ×4 (12:26→16:26)
[2018-02-01] MEDS ORDERED: ONDANSETRON HCL INJ/PF 4 MG/2 ML SDV IV ONE (12:27)
--- NOTE | 2018-02-01 12:28 | ER Document Report ---
ED Medical Screen (RME) - General Chief Complaint: Abdominal Pain Stated Complaint: ABDOMINAL PAIN, BACK PAIN, VOMITING Time Seen by Provider: 02/01/18 12:21 Notes: Patient is a 47-year-old female with Crohn's disease that presents to the emergency department for chief complaint of diffuse abdominal pain and nausea. Patient reports she was seen a few weeks ago, and had similar complaints and it has been worse over the last 2-3 days, she describes her pain as severe, and all over her abdomen, worse in the lower quadrants. ROS: Unless otherwise stated in this report the patient's positive and negative responses for review of systems for constitutional, eyes, ENT, cardiovascular, respiratory, gastrointestinal, neurological, genitourinary, musculoskeletal, and integumentary systems and related systems to the presenting problem are either as stated in the HPI or were not pertinent or were negative for the symptoms and/or complaints related to the presenting medical problem. PHYSICAL EXAMINATION: Vital signs reviewed. GENERAL: Appears to be uncomfortable, and in significant pain, anxious HEAD: Atraumatic, normocephalic. EYES: Pupils equal round extraocular movements intact, conjunctiva are normal. ENT: Nares patent NECK: Normal range of motion CV: Heart regular rate and rhythm LUNGS: No respiratory distress Abdomen: Diffuse abdominal tenderness with palpation Musculoskeletal: Normal range of motion NEUROLOGICAL: Normal speech PSYCH: Appears uncomfortable, anxious MDM: Patient seen and examined for rapid initial assessment. Vital signs reviewed. A comprehensive ED assessment and evaluation of the patient, analysis of test results and completion of the medical decision making process will be conducted by additional ED providers. *Note is created using voice recognition software and may contain spelling, syntax or grammatical errors. TRAVEL OUTSIDE OF THE [place] IN LAST 30 DAYS: No - Related Data Allergies/Adverse Reactions: ceftriaxone sodium [From Rocephin] Allergy (Severe, Verified 02/01/18 11:54) Anaphylaxis Ciprofloxacin Lactate [From Cipro I.V.] Allergy (Intermediate, Verified 11:54) Hives morphine Allergy (Verified 02/01/18 11:54) aspirin [Aspirin] Adverse Reaction (Intermediate, Verified 02/01/18 11:54) GI distress tramadol [Tramadol] Adverse Reaction (Intermediate, Verified 02/01/18 11:54) GI upset Past Medical History - Social History Frequency of alcohol use: None Drug Abuse: None Family history: Reviewed & Not Pertinent - Past Medical History Cardiac Medical History: Denies: Hx Heart Attack, Hx Hypercholesterolemia, Hx Hypertension Pulmonary Medical History: Reports: Hx Pneumonia Denies: Hx Asthma, Hx Bronchitis, Hx COPD, Hx Tuberculosis Neurological Medical History: Denies: Hx Seizures Endocrine Medical History: Denies: Hx Diabetes Mellitus Type 2, Hx Hyperthyroidism, Hx Hypothyroidism Renal/ Medical History: Denies: Hx Peritoneal Dialysis GI Medical History: Reports: Hx Crohn's Disease Psychiatric Medical History: Reports: Hx Depression Infectious Medical History: Denies: Hx C-Diff Past Surgical History: Reports: Hx Abdominal Surgery - fistula, Hx Tubal Ligation, Other - Exploratory laparoscopy and limited exploratory laparotomy in July 2015.. Denies: Hx Hysterectomy, Hx Pacemaker - Immunizations Hx Diphtheria, Pertussis, Tetanus Vaccination: Yes History of Influenza Vaccine for 01/2017 - 06/2017 Season: Refused Physical Exam - Vital signs Vitals: Temp Pulse Resp BP Pulse Ox 97.9 F 99 20 155/96 H 99 02/01/18 11:58 02/01/18 11:58 02/01/18 11:58 02/01/18 11:58 02/01/18 11:58 Course - Vital Signs Vital signs: Temp Pulse Resp BP Pulse Ox 97.9 F 99 20 155/96 H 99 02/01/18 11:58 02/01/18 11:58 02/01/18 11:58 02/01/18 11:58 02/01/18 11:58
[2018-02-01 12:57] LABS: ABSOLUTE EOSINOPHILS # (AUTO) 0.1 10^3/uL (0.0-0.6); ABSOLUTE LYMPHOCYTES (AUTO) 0.9 10^3/uL (0.5-4.7); ABSOLUTE MONOCYTES (AUTO) 0.5 10^3/uL (0.1-1.4); ABSOLUTE NEUT (AUTO) 5.9 10^3/uL (1.7-8.2); BASOPHILS % (AUTO) 0.6 % (0-2); EOSINOPHILS % (AUTO) 1.9 % (0-6); HEMATOCRIT 35.2 % (36.0-47.0); HEMOGLOBIN 11.7 g/dL (12.0-15.5); LYMPHOCYTES % (AUTO) 11.7 % (13-45); MEAN CORPUSCULAR HEMOGLOBIN 30.9 pg (27.0-33.4); MEAN CORPUSCULAR HGB CONC 33.4 g/dL (32.0-36.0); MEAN CORPUSCULAR VOLUME 93 fl (80-97); MONOCYTES % (AUTO) 7.2 % (3-13); PLATELET COUNT 830 10^3/uL (150-450); RED CELL DISTRIBUTION WIDTH 16.6 % (11.5-14.0); SEGMENTED NEUTROPHILS % (AUTO) 78.6 % (42-78); TOTAL CELLS COUNTED % (AUTO) 100 %; WHITE BLOOD COUNT 7.5 10^3/uL (4.0-10.5)
[2018-02-01] MEDS ORDERED: METOCLOPRAMIDE HCL INJ/PF 10 MG/2 ML SDV IV ONE (13:00)
--- NOTE | 2018-02-01 13:04 | ER Document Report ---
ED General - General Chief Complaint: Abdominal Pain Stated Complaint: ABDOMINAL PAIN, BACK PAIN, VOMITING Time Seen by Provider: 02/01/18 12:21 Mode of Arrival: Ambulatory Information source: Patient Notes: This is a 47-year-old female with a history of Crohn's disease who presents with progressively worsening abdominal pain. Patient reports multiple episodes of watery stools. Patient denies any blood in the stool. She recently finished up on steroids and pain medicines and states that her discomfort is no better. TRAVEL OUTSIDE OF THE [place] IN LAST 30 DAYS: No - HPI Onset: Other - Last month Onset/Duration: Gradual Quality of pain: Dull Severity: Moderate Pain Level: 3 Associated symptoms: Nausea, Vomiting, Weakness. denies: Fever, Shortness of breath Exacerbated by: Denies Relieved by: Denies Similar symptoms previously: Yes Recently seen / treated by doctor: Yes - Related Data Allergies/Adverse Reactions: ceftriaxone sodium [From Rocephin] Allergy (Severe, Verified 02/01/18 11:54) Anaphylaxis Ciprofloxacin Lactate [From Cipro I.V.] Allergy (Intermediate, Verified 11:54) Hives morphine Allergy (Verified 02/01/18 11:54) aspirin [Aspirin] Adverse Reaction (Intermediate, Verified 02/01/18 11:54) GI distress tramadol [Tramadol] Adverse Reaction (Intermediate, Verified 02/01/18 11:54) GI upset Past Medical History - General Information source: Patient - Social History Smoking Status: Current Every Day Smoker Cigarette use (# per day): Yes - 1 pack/day Chew tobacco use (# tins/day): No Frequency of alcohol use: None Drug Abuse: None Lives with: Family Family History: Hypertension, Malignancy - Lung cancer Patient has suicidal ideation: No Patient has homicidal ideation: No - Past Medical History Cardiac Medical History: Denies: Hx Heart Attack, Hx Hypercholesterolemia, Hx Hypertension Pulmonary Medical History: Reports: Hx Pneumonia Denies: Hx Asthma, Hx Bronchitis, Hx COPD, Hx Tuberculosis Neurological Medical History: Denies: Hx Seizures Endocrine Medical History: Denies: Hx Diabetes Mellitus Type 2, Hx Hyperthyroidism, Hx Hypothyroidism Renal/ Medical History: Denies: Hx Peritoneal Dialysis GI Medical History: Reports: Hx Crohn's Disease Psychiatric Medical History: Reports: Hx Depression Infectious Medical History: Denies: Hx C-Diff Past Surgical History: Reports: Hx Abdominal Surgery - fistula, Hx Tubal Ligation, Other - Exploratory laparoscopy and limited exploratory laparotomy in July 2015.. Denies: Hx Hysterectomy, Hx Pacemaker - Immunizations Hx Diphtheria, Pertussis, Tetanus Vaccination: Yes Review of Systems - Review of Systems Constitutional: denies: Chills, Fever EENT: No symptoms reported Cardiovascular: No symptoms reported Respiratory: No symptoms reported Gastrointestinal: See HPI Genitourinary: No symptoms reported Female Genitourinary: No symptoms reported Musculoskeletal: No symptoms reported Skin: No symptoms reported Hematologic/Lymphatic: No symptoms reported Neurological/Psychological: No symptoms reported Physical Exam - Vital signs Vitals: Temp Pulse Resp BP Pulse Ox 97.9 F 99 20 155/96 H 99 02/01/18 11:58 02/01/18 11:58 02/01/18 11:58 02/01/18 11:58 02/01/18 11:58 Notes: Physical exam: GENERAL: Patient is alert and oriented x3, she appears in distress HEAD: Atraumatic, normocephalic. EYES: Pupils equal round and reactive to light, extraocular movements intact, sclera anicteric, conjunctiva are normal. ENT: TMs normal, nares patent, oropharynx clear without exudates. Moist mucous membranes. NECK: Normal range of motion, supple without obvious mass. LUNGS: Breath sounds clear to auscultation bilaterally and equal. No wheezes rales or rhonchi. HEART: Regular rate and rhythm without murmurs, rubs or gallops. ABDOMEN: Soft, normoactive bowel sounds. She has tenderness to the left of the abdomen. No guarding, no rebound. No masses appreciated. Rectal: Brown stool, sent for study EXTREMITIES: Normal range of motion, no pitting or edema. No clubbing or cyanosis. NEUROLOGICAL: Cranial nerves II through XII grossly intact. Normal speech, moving all extremities. PSYCH: Normal mood, normal affect. SKIN: Warm, Dry, normal turgor, no rashes or lesions noted. Course - Re-evaluation Re-evalutation: 02/01/18 18:39 Note: I discussed the case with Dr. Mora of GI whose willing to see the patient while she is in the hospital. The plan was for IV fluids, IV pain meds , IV steroids. I discussed case with Dr. Davison and Dr. Whitaker who are also willing to admit the patient. Unfortunately, the patient does not want to be admitted. She states that she is going to see a GI doctor in [place] on Wednesday. I have reviewed the CT scan and compared it to the previous one early in the month and if anything it may be a little bit better. The plan will be for pain meds and steroids and for her to follow-up in [place]. - Vital Signs Vital signs: Temp Pulse Resp BP Pulse Ox 97.1 F 77 20 136/69 H 99 02/01/18 16:53 02/01/18 16:53 02/01/18 16:53 02/01/18 16:53 02/01/18 16:53 - Laboratory Result Diagrams: 02/01/18 12:46 02/01/18 12:46 Laboratory results interpreted by me: 02/01/18 02/01/18 02/01/18 12:46 12:46 14:10 Hgb 11.7 L Hct 35.2 L RDW 16.6 H Plt Count 830 H Seg Neutrophils % 78.6 H Lymphocytes % 11.7 L ESR 30 H Glucose 71 L AST 42 H C-Reactive Protein 21.0 H Albumin 3.2 L Urine Ketones TRACE H Urine Urobilinogen 4.0 H - Diagnostic Test Radiology reviewed: Image reviewed, Reports reviewed - CT shows inflammation Discharge - Discharge Clinical Impression: Crohn's flare Condition: Stable Disposition: AGAINST MEDICAL ADVICE Instructions: Abdominal Pain ([facility]) Additional Instructions: As we discussed, want you to follow-up with the GI doctor as planned in [place] this Wednesday (in 3 days). If you have persistent pain, vomiting or if you are getting worse, I recommend you come back to the emergency room. The pain medicine you're taking prescribed as a narcotic. There are several important things you should know about this medicine: 1. Taking narcotics for too long can lead to physical and mental dependence. Take this medicine only if really needed and in the lowest quantity to achieve pain relief. 2. Do not drink alcohol while on this medicine. Alcohol interacts with narcotics and the combination can be dangerous. 3. Do not drive or operate machinery while on this medicine. 4. Narcotics do cause constipation, so drink plenty of fluids and daily stool softeners. Prescriptions: Oxycodone HCl 5 mg PO Q6HP PRN #25 tablet PRN Reason: Metronidazole [Flagyl 500 mg Tablet] 500 mg PO TID #30 tablet
[2018-02-01 13:13] LABS: PROTHROMBIN TIME 12.6 SEC (11.4-15.4)
[2018-02-01 13:24] LABS: ALANINE AMINOTRANSFERASE 38 U/L (9-52); ALBUMIN 3.2 g/dL (3.5-5.0); ALKALINE PHOSPHATASE 110 U/L (38-126); ANION GAP 8 (5-19); ASPARTATE AMINO TRANSFERASE 42 U/L (14-36); BILIRUBIN,DIRECT 0.4 mg/dL (0.0-0.4); BILIRUBIN,TOTAL 0.5 mg/dL (0.2-1.3); BLOOD UREA NITROGEN 12 mg/dL (7-20); CALCIUM 8.9 mg/dL (8.4-10.2); CARBON DIOXIDE 29 mmol/L (22-30); CHLORIDE 105 mmol/L (98-107); GLUCOSE 71 mg/dL (75-110); POTASSIUM 3.8 mmol/L (3.6-5.0); SODIUM 142.3 mmol/L (137-145); TOTAL PROTEIN 6.7 g/dL (6.3-8.2)
[2018-02-01 13:39] LABS: ERYTHROCYTE SEDIMENTATION RATE 30 mm/hr (0-20)
[2018-02-01 14:50] LABS: AMORPHOUS SEDIMENT,URINE TRACE /HPF; APPEARANCE,URINE CLOUDY; BILIRUBIN,URINE NEGATIVE (NEGATIVE); CALCIUM OXALATE CRYSTALS,URINE RARE /HPF; COLOR,URINE YELLOW; GLUCOSE, URINE NEGATIVE (NEGATIVE); KETONES,URINE TRACE mg/dL (NEGATIVE); LEUKOCYTE ESTERASE,URINE NEGATIVE (NEGATIVE); NITRITE,URINE NEGATIVE (NEGATIVE); PROTEIN,URINE NEGATIVE (NEGATIVE)
--- NOTE | 2018-02-01 18:06 | RADIOLOGY REPORT (SQ) ---
EXAM DESCRIPTION: CT ABD/PELVIS WITH IV ORAL COMPLETED DATE/TIME: 02/01/2018 4:23 pm REASON FOR STUDY: abd pain COMPARISON: 01/13/2018. TECHNIQUE: CT scan of the abdomen and pelvis performed with intravenous and oral contrast using ludwig clarita scanning technique with dynamic intravenous contrast injection. Images reviewed with lung, soft t issue, and bone windows. Reconstructed coronal and sagittal MPR images reviewed. Delayed images for e valuation of the urinary system also acquired. All images stored on PACS. All CT scanners at this facility use dose modulation, iterative reconstruction, and/or weight based d osing when appropriate to reduce radiation dose to as low as reasonably achievable (ALARA). [facility]: Dose Right [facility]: CareDose [facility]: Dose Right [facility]: Teradose 4D [facility]: Pushfor CONTRAST TYPE AND DOSE: contrast/concentration: Isovue 350.00 mg/ml; Total Contrast Delivered: 45.0 ml; Total Saline Delivered: 65.0 ml RENAL FUNCTION: BUN 12 creatinine 0.81. RADIATION DOSE: CT Rad equipment meets quality standard of care and radiation dose reduction techniq ues were employed. CTDIvol: 4.8 mGy. DLP: 506 mGy-cm.. LIMITATIONS: Study limited due to lack of mesenteric fat. FINDINGS: LOWER CHEST: No significant findings. No nodules or infiltrates. LIVER: Normal size. Diffuse fatty infiltration. No masses. No dilated ducts. SPLEEN: Normal size. No focal lesions. PANCREAS: No masses. No significant calcifications. No adjacent inflammation or peripancreatic fluid collections. Pancreatic duct not dilated. GALLBLADDER: No identified stones by CT criteria. No inflammatory changes to suggest cholecystitis. ADRENAL GLANDS: No significant masses or asymmetry. RIGHT KIDNEY AND URETER: No solid masses. No significant calcification. No hydronephrosis or hydroure ter. LEFT KIDNEY AND URETER: No solid masses. No significant calcification. No hydronephrosis or hydrouret er. AORTA AND VESSELS: No aneurysm. No dissection. Renal arteries, SMA, celiac without stenosis. RETROPERITONEUM: No retroperitoneal adenopathy, hemorrhage or masses. BOWEL AND PERITONEAL CAVITY: Prominent stool throughout the colon. There is bowel wall thickening of a few of the bowel loops. There is also somewhat hazy appearance of the mesentery. No abnormal flu id collections. No free fluid or free air. APPENDIX: Normal. PELVIS: No significant masses. Normal bladder. No free fluid. ABDOMINAL WALL: No masses. No hernias. BONES: No significant or acute findings. OTHER: No other significant finding. IMPRESSION: 1. PROMINENT STOOL IN THE COLON SUGGESTING CONSTIPATION. THERE IS ALSO SOME WHAT HAZY APPEARANCE OF THE MESENTERY SUGGESTING INFLAMMATION WELL AREAS OF BOWEL WALL THICKENING. NO ABNORMAL FLUID C OLLECTIONS OR FREE FLUID. 2. STABLE FATTY INFILTRATION OF THE LIVER. 3. PREVIOUSLY SEEN THROMBUS IN THE ABDOMINAL AORTA IS NOT PRESENT ON THE CURRENT STUDY. 4. NO OTHER SIGNIFICANT OR ACUTE FINDINGS IN THE ABDOMEN OR PELVIS. TECHNICAL DOCUMENTATION: JOB ID: [id number] Quality ID # [id number]: Final reports with documentation of one or more dose reduction techniques (e.g., Au tomated exposure control, adjustment of the mA and/or kV according to patient size, use of iterative reconstruction technique) 2010 [employer]- All Rights Reserved Reading location - IP/workstation name: [email or web address]
--- NOTE | 2018-02-01 18:10 | PDOC CONSULTATION ---
Consultation Consult Date: 02/01/18 Attending physician:: CHUCHO DALTON Consult reason:: Flare of Crohn's disease History of Present Illness History of Present Illness: ANALISA BOLAND is a 47 year old female Called by Dr Velázquez from the ED, patient presents with Crohn's flare not able to tolerate outpatient treatment, recently finished up a course of medications but unfortunately has had another flare no increase WBC however CT scan done is consistent with both small and larger bowel Crohn's patient will need IV steroids if admitted and then once can transition to oral intake, started on high does 5 ASA compounds ultimately if she can be started on a biological agent likely Humira, that would be the most beneficial however she is self pay and we will need SW to contact [employer] to see if she could qualify for pro-loreto medications Past Medical History Cardiac Medical History: Denies: Myocardial Infarction, Hyperlipidema, Hypertension Pulmonary Medical History: Reports: Pneumonia Denies: Asthma, Bronchitis, Chronic Obstructive Pulmonary Disease (COPD), Tuberculosis Neurological Medical History: Denies: Seizures Endocrine Medical History: Denies: Diabetes Mellitus Type 2, Hyperthyroidism, Hypothyroidism GI Medical History: Reports: Crohn's Disease Psychiatric Medical History: Reports: Depression Hematology: Reports: Anemia Denies: Sickle Cell Disease, Bleeding Tendencies, Neutropenia Infectious Medical History: Denies: Clostridium Difficile Past Surgical History Past Surgical History: Reports: Tubal Ligation, Other - Exploratory laparoscopy and limited exploratory laparotomy in July 2015. Denies: Hysterectomy, Pacemaker Social History Smoking Status: Current Every Day Smoker Frequency of Alcohol Use: None Hx Recreational Drug Use: No Drugs: Cocaine Hx Prescription Drug Abuse: No Family History Family History: Hypertension, Malignancy - Lung cancer Parental Family History Reviewed: Yes Children Family History Reviewed: Unknown Sibling(s) Family History Reviewed.: Unknown Medication/Allergy Home Medications: Prednisone 60 mg PO DAILY #30 tablet 07/31/17 Dicyclomine HCl [Bentyl 20 mg Tablet] 20 mg PO QID #30 tablet 10/08/17 Prednisone [Deltasone 20 mg Tablet] 3 tab PO DAILY 5 Days tablet 10/08/17 Metronidazole [Flagyl 500 mg Tablet] 500 mg PO TID #30 tablet 01/14/18 Ondansetron HCl [Zofran 4 mg Tablet] 1 - 2 tab PO Q4H PRN #10 tablet 01/14/18 Oxycodone HCl 5 mg PO Q6HP PRN #25 tablet 01/14/18 Prednisone 10 mg PO DAILY #27 tablet 01/14/18 Allergies/Adverse Reactions: ceftriaxone sodium [From Rocephin] Allergy (Severe, Verified 02/01/18 11:54) Anaphylaxis Ciprofloxacin Lactate [From Cipro I.V.] Allergy (Intermediate, Verified 11:54) Hives morphine Allergy (Verified 02/01/18 11:54) aspirin [Aspirin] Adverse Reaction (Intermediate, Verified 02/01/18 11:54) GI distress tramadol [Tramadol] Adverse Reaction (Intermediate, Verified 02/01/18 11:54) GI upset Review of Systems Constitutional: ABSENT: fever(s), headache(s), night sweats Eyes: ABSENT: visual disturbances Ears: ABSENT: hearing changes Nose, Mouth, and Throat: ABSENT: mouth pain, sore throat Cardiovascular: ABSENT: edema, palpitations Respiratory: ABSENT: dyspnea, hemoptysis Gastrointestinal: PRESENT: abdominal pain, diarrhea, nausea, vomiting. ABSENT: hematemesis, melena Genitourinary: ABSENT: dysuria, hematuria Musculoskeletal: ABSENT: deformity, joint swelling Integumentary: ABSENT: pruritus Neurological: ABSENT: syncope, tingling, tremor(s), vertigo Endocrine: ABSENT: polydipsia, polyphagia, polyuria Physical Exam Vital Signs: Temp Pulse Resp BP Pulse Ox 97.1 F 77 20 136/69 H 99 02/01/18 16:53 02/01/18 16:53 02/01/18 16:53 02/01/18 16:53 02/01/18 16:53 Intake & Output 01/31/18 02/01/18 02/02/18 06:59 06:59 06:59 Intake Total 3700 Balance 3700 Weight 42 kg General appearance: PRESENT: mild distress, well-developed, well-nourished Head exam: PRESENT: atraumatic, normocephalic Eye exam: PRESENT: EOMI, PERRLA. ABSENT: nystagmus, periorbital swelling, scleral icterus Mouth exam: PRESENT: moist, neck supple Throat exam: ABSENT: tonsillar exudate, tonsillogmegaly Respiratory exam: PRESENT: symmetrical, unlabored. ABSENT: tachypnea, wheezes Cardiovascular exam: PRESENT: RRR, +S1, +S2 GI/Abdominal exam: PRESENT: soft. ABSENT: rebound, rigid Extremities exam: ABSENT: joint swelling Musculoskeletal exam: PRESENT: full ROM Neurological exam: PRESENT: oriented to time, oriented to situation, CN II-XII grossly intact Focused psych exam: ABSENT: restlessness Skin exam: PRESENT: normal color. ABSENT: mottled, pallor, urticaria, vesicles Results Laboratory Results: 02/01/18 12:46 02/01/18 12:46 02/01/18 02/01/18 02/01/18 12:46 12:46 12:46 WBC 7.5 RBC 3.80 Hgb 11.7 L Hct 35.2 L MCV 93 MCH 30.9 MCHC 33.4 RDW 16.6 H Plt Count 830 H Seg Neutrophils % 78.6 H Lymphocytes % 11.7 L Monocytes % 7.2 Eosinophils % 1.9 Basophils % 0.6 Absolute Neutrophils 5.9 Absolute Lymphocytes 0.9 Absolute Monocytes 0.5 Absolute Eosinophils 0.1 Absolute Basophils 0.0 Sodium 142.3 Potassium 3.8 Chloride 105 Carbon Dioxide 29 Anion Gap 8 BUN 12 Creatinine 0.81 Est GFR ( Amer) > 60 Est GFR (Non-Af Amer) > 60 Glucose 71 L Lactic Acid 1.4 Calcium 8.9 Total Bilirubin 0.5 AST 42 H ALT 38 Alkaline Phosphatase 110 C-Reactive Protein 21.0 H Total Protein 6.7 Albumin 3.2 L Urine Color Urine Appearance Urine pH Ur Specific Keno Urine Protein Urine Glucose (UA) Urine Ketones Urine Blood Urine Nitrite Ur Leukocyte Esterase Urine WBC (Auto) Urine RBC (Auto) Stool Occult Blood 02/01/18 02/01/18 13:10 14:10 WBC RBC Hgb Hct MCV MCH MCHC RDW Plt Count Seg Neutrophils % Lymphocytes % Monocytes % Eosinophils % Basophils % Absolute Neutrophils Absolute Lymphocytes Absolute Monocytes Absolute Eosinophils Absolute Basophils Sodium Potassium Chloride Carbon Dioxide Anion Gap BUN Creatinine Est GFR ( Amer) Est GFR (Non-Af Amer) Glucose Lactic Acid Calcium Total Bilirubin AST ALT Alkaline Phosphatase C-Reactive Protein Total Protein Albumin Urine Color YELLOW Urine Appearance CLOUDY Urine pH 6.0 Ur Specific Keno 1.020 Urine Protein NEGATIVE Urine Glucose (UA) NEGATIVE Urine Ketones TRACE H Urine Blood NEGATIVE Urine Nitrite NEGATIVE Ur Leukocyte Esterase NEGATIVE Urine WBC (Auto) 2 Urine RBC (Auto) 3 Stool Occult Blood NEGATIVE Assessment & Plan - Diagnosis (1) Crohns disease Qualifiers: Gastrointestinal tract location: unspecified location Digestive disease complication type: unspecified complication Qualified Code(s): K50.919 - Crohn 's disease, unspecified, with unspecified complications Plan: likely flare of Crohn's disease drug screen to exclude illicit drugs avoid tobacco No NSAIDS will need IV steroids and transition back to oral along 5ASA medications SW to see if she can qualify for biological therapy, she would benefit from Humira injection. avoid narcotic pain medications check Vit B12, Vit D, folate, iron etc since all absorbed at the level of the small bowel replace as necessary will follow as needed Spoke with Dr Velázquez, she likely will be admitted by the Hospitalist service. - Time Time Spent: 50 to 70 Minutes
[2018-02-01 18:53] VITALS: BP 155/67
--- NOTE | 2018-02-01 21:07 | EKG REPORT ---
SEVERITY:- ABNORMAL ECG - SINUS RHYTHM SHORT WV INTERVAL, ACCELERATED AV CONDUCTION CONSIDER LEFT VENTRICULAR HYPERTROPHY : Confirmed by: Daryl Winston 01-Feb-2018 21:05:49
== END 2018-02-01 18:53 | disposition home or self-care (01) ==
LOC: ER 11:50
DX: K50.919 Crohn's disease, unspecified, with unspecified complications (principal); R11.2 Nausea with vomiting, unspecified; R53.1 Weakness; F17.210 Nicotine dependence, cigarettes, uncomplicated; Z88.1 Allergy status to other antibiotic agents; Z88.5 Allergy status to narcotic agent
CPT/HCPCS: 93005; 96376; 99284; 96361; 96374; 96375; 36415; 87040; 87086; 85025; 85652; 85610; 82272; 86140; 80053; 81001; 83605; 74177; 93010; J2765; J1170; J2405; J7030

== ENCOUNTER 2018-03-05 10:43 | Emergency (ER) | payer SELFPAY ==
--- NOTE | 2018-03-05 11:17 | ER Document Report ---
ED Medical Screen (RME) - General Chief Complaint: Abdominal Pain Stated Complaint: ABDOMINAL PAIN Time Seen by Provider: 03/05/18 11:16 Notes: Patient is complaining of chronic abdominal pain secondary to her Crohn's disease. She was recently hospitalized at [facility] and discharged on February 25. She saw her GI doctor yesterday and was prescribed a new medication for the Crohn's, but it is not able to be paid for by insurance yet. Patient says she is out of her Phenergan and her pain medication (oxycodone) and will not be able to get any of these medicines until she is seen by her primary care sometime in April. Patient says she is having vomiting and diarrhea and lower abdominal pain. Not aware of any fever. TRAVEL OUTSIDE OF THE [place] IN LAST 30 DAYS: No - Related Data Allergies/Adverse Reactions: ceftriaxone sodium [From Rocephin] Allergy (Severe, Verified 03/05/18 11:12) Anaphylaxis Ciprofloxacin Lactate [From Cipro I.V.] Allergy (Intermediate, Verified 11:12) Hives morphine Allergy (Verified 03/05/18 11:12) aspirin [Aspirin] Adverse Reaction (Intermediate, Verified 03/05/18 11:12) GI distress tramadol [Tramadol] Adverse Reaction (Intermediate, Verified 03/05/18 11:12) GI upset Past Medical History - Social History Family history: Reviewed & Not Pertinent - Past Medical History Cardiac Medical History: Denies: Hx Heart Attack, Hx Hypercholesterolemia, Hx Hypertension Pulmonary Medical History: Reports: Hx Pneumonia Denies: Hx Asthma, Hx Bronchitis, Hx COPD, Hx Tuberculosis Neurological Medical History: Denies: Hx Seizures Endocrine Medical History: Denies: Hx Diabetes Mellitus Type 2, Hx Hyperthyroidism, Hx Hypothyroidism Renal/ Medical History: Denies: Hx Peritoneal Dialysis GI Medical History: Reports: Hx Crohn's Disease Psychiatric Medical History: Reports: Hx Depression Infectious Medical History: Denies: Hx C-Diff Past Surgical History: Reports: Hx Abdominal Surgery - fistula, Hx Tubal Ligation, Other - Exploratory laparoscopy and limited exploratory laparotomy in July 2015.. Denies: Hx Hysterectomy, Hx Pacemaker - Immunizations Hx Diphtheria, Pertussis, Tetanus Vaccination: Yes History of Influenza Vaccine for 01/2017 - 06/2017 Season: Refused Physical Exam - Vital signs Vitals: Temp Pulse Resp BP Pulse Ox 98.5 F 97 18 105/70 98 11/24/18 10:53 03/05/18 10:53 03/05/18 10:53 03/05/18 10:53 03/05/18 10:53 Course - Vital Signs Vital signs: Temp Pulse Resp BP Pulse Ox 98.5 F 97 18 105/70 98 03/05/18 10:53 03/05/18 10:53 03/05/18 10:53 03/05/18 10:53 03/05/18 10:53
[2018-03-05 11:42] LABS: ABSOLUTE LYMPHOCYTES (AUTO) 0.5 10^3/uL (0.5-4.7); ABSOLUTE MONOCYTES (AUTO) 0.4 10^3/uL (0.1-1.4); ABSOLUTE NEUT (AUTO) 3.8 10^3/uL (1.7-8.2); BASOPHILS % (AUTO) 0.3 % (0-2); EOSINOPHILS % (AUTO) 0.5 % (0-6); HEMATOCRIT 27.8 % (36.0-47.0); HEMOGLOBIN 9.2 g/dL (12.0-15.5); LYMPHOCYTES % (AUTO) 11.6 % (13-45); MEAN CORPUSCULAR HEMOGLOBIN 30.2 pg (27.0-33.4); MEAN CORPUSCULAR HGB CONC 33.2 g/dL (32.0-36.0); MEAN CORPUSCULAR VOLUME 91 fl (80-97); MONOCYTES % (AUTO) 8.3 % (3-13); PLATELET COUNT 593 10^3/uL (150-450); RED BLOOD COUNT 3.06 10^6/uL (3.72-5.28); RED CELL DISTRIBUTION WIDTH 16.7 % (11.5-14.0); SEGMENTED NEUTROPHILS % (AUTO) 79.3 % (42-78); TOTAL CELLS COUNTED % (AUTO) 100 %; WHITE BLOOD COUNT 4.7 10^3/uL (4.0-10.5)
[2018-03-05 12:02] LABS: ALANINE AMINOTRANSFERASE 28 U/L (9-52); ALBUMIN 2.3 g/dL (3.5-5.0); ALKALINE PHOSPHATASE 89 U/L (38-126); ANION GAP 8 (5-19); ASPARTATE AMINO TRANSFERASE 23 U/L (14-36); BILIRUBIN,DIRECT 0.2 mg/dL (0.0-0.4); BILIRUBIN,TOTAL 0.3 mg/dL (0.2-1.3); BLOOD UREA NITROGEN 18 mg/dL (7-20); CALCIUM 7.7 mg/dL (8.4-10.2); CARBON DIOXIDE 32 mmol/L (22-30); CHLORIDE 106 mmol/L (98-107); GLUCOSE 92 mg/dL (75-110); LIPASE 12.5 U/L (23-300); POTASSIUM 3.4 mmol/L (3.6-5.0); SODIUM 145.6 mmol/L (137-145)
[2018-03-05] MEDS ORDERED: OXYCODONE HCL IR 5 MG TABLET PO ONE (12:35)
--- NOTE | 2018-03-05 12:40 | ER Document Report ---
ED General - General Chief Complaint: Abdominal Pain Stated Complaint: ABDOMINAL PAIN Time Seen by Provider: 03/05/18 11:16 TRAVEL OUTSIDE OF THE [place] IN LAST 30 DAYS: No - HPI Notes: Patient is a 47-year-old female that presents to the emergency department for chief complaint of abdominal pain. Patient has Crohn's and reports she has been having a flare for the last few weeks. She reports daily diarrhea. She has not had any blood in her stool for the last 2-3 weeks. She denies any recent blood transfusions. She states she does have a history of anemia as well but has been out of her iron sulfate prescription for a while. She states she is having lower abdominal cramping that is sharp. The cramping is constant. She denies any aggravating or relieving factors. Patient states she has been out of her oxycodone prescription for the last week. She was seen yesterday in [place] by her GI physician who informed her that her prescription pain medications need to be filled by her primary care doctor or pain management. Patient was started on a new Crohn's medication by GI which she is getting approved through her insurance currently and does not know the name of. She denies any nausea vomiting fevers chills dysuria chest pain and shortness of breath. Past Medical History: Crohn's disease Past Surgical History: Reviewed in chart Social History: Denies drugs alcohol and tobacco Family History: Reviewed and noncontributory for presenting illness Allergies: Reviewed, see documented allergy list. REVIEW OF SYSTEMS: CONSTITUTIONAL : No fever No chills No diaphoresis No recent illness EENT: No vision changes No congestion No sore throat CARDIOVASCULAR: No chest pain No palpitations RESPIRATORY: No shortness of breath No cough No difficulty breathing GASTROINTESTINAL: abdominal pain No nausea No vomiting diarrhea GENITOURINARY: No dysuria No hematuria No difficulty urinating MUSCULOSKELETAL: No back pain No leg pain No arm pain SKIN: No rashes No lesions LYMPHATIC: No swollen, enlarged glands. NEUROLOGICAL: No lightheadedness No headache No weakness No paresthesias PSYCHIATRIC: No anxiety No depression PHYSICAL EXAMINATION: Vital signs reviewed, nursing noted reviewed. GENERAL: Well-appearing, well-nourished and in no acute distress. HEAD: Atraumatic, normocephalic. EYES: Eyes appear normal, extraocular movements intact, sclera anicteric, conjunctiva are normal. ENT: nares patent, oropharynx clear without exudates. Moist mucous membranes. NECK: Normal range of motion, supple without lymphadenopathy LUNGS: Breath sounds clear to auscultation bilaterally and equal. No wheezes rales or rhonchi. HEART: Regular rate and rhythm without murmurs ABDOMEN: Soft, mild diffuse tenderness, normoactive bowel sounds. No rebound, guarding, or rigidity. No masses appreciated. EXTREMITIES: Nontender, good range of motion, no pitting or edema. NEUROLOGICAL: No focal neurological deficits. Moves all extremities spontaneously Motor and sensory grossly intact on exam. PSYCH: Normal mood, normal affect. SKIN: Warm, Dry, normal turgor, no rashes or lesions noted on exposed skin - Related Data Allergies/Adverse Reactions: ceftriaxone sodium [From Rocephin] Allergy (Severe, Verified 03/05/18 11:12) Anaphylaxis Ciprofloxacin Lactate [From Cipro I.V.] Allergy (Intermediate, Verified 11:12) Hives morphine Allergy (Verified 03/05/18 11:12) aspirin [Aspirin] Adverse Reaction (Intermediate, Verified 03/05/18 11:12) GI distress tramadol [Tramadol] Adverse Reaction (Intermediate, Verified 03/05/18 11:12) GI upset Home Medications: vitamin d2. remeron. phenergan. oxycodone. gabapentin. iron. prednisone Past Medical History - Social History Smoking Status: Unknown if Ever Smoked Family History: Hypertension, Malignancy - Lung cancer Patient has suicidal ideation: No Patient has homicidal ideation: No - Past Medical History Cardiac Medical History: Denies: Hx Heart Attack, Hx Hypercholesterolemia, Hx Hypertension Pulmonary Medical History: Reports: Hx Pneumonia Denies: Hx Asthma, Hx Bronchitis, Hx COPD, Hx Tuberculosis Neurological Medical History: Denies: Hx Seizures Endocrine Medical History: Denies: Hx Diabetes Mellitus Type 2, Hx Hyperthyroidism, Hx Hypothyroidism Renal/ Medical History: Denies: Hx Peritoneal Dialysis GI Medical History: Reports: Hx Crohn's Disease Psychiatric Medical History: Reports: Hx Depression Infectious Medical History: Denies: Hx C-Diff Past Surgical History: Reports: Hx Abdominal Surgery - fistula, Hx Tubal Ligation, Other - Exploratory laparoscopy and limited exploratory laparotomy in July 2015.. Denies: Hx Hysterectomy, Hx Pacemaker - Immunizations Hx Diphtheria, Pertussis, Tetanus Vaccination: Yes Review of Systems - Review of Systems Notes: Dictated Physical Exam - Vital signs Vitals: Temp Pulse Resp BP Pulse Ox 98.5 F 97 18 105/70 98 03/05/18 10:53 03/05/18 10:53 03/05/18 10:53 03/05/18 10:53 03/05/18 10:53 - Notes Notes: Dictated Course - Re-evaluation Re-evalutation: 03/05/18 12:37 Vitals reviewed. Nursing notes reviewed. Patient is hemodynamically stable. She is anemic on blood work with hemoglobin of 9. She has been noncompliant with her home iron supplementation. She denies any active GI bleeding currently. She is requesting a refill of oxycodone. Initially she said that she had an appointment with her primary care doctor to discuss pain medication refill however when I asked her why she did not contact them for a refill over the last week she states she did ask her primary care for a refill and they said they would no longer provide her pain medications that they would refer her to pain management. Patient's PCP and GI physician do not feel comfortable writing her opiate pain medications. I will give her a dose of pain medicine in the emergency room however I explained that chronic pain prescriptions need to be filled by someone who is able to follow along with her care like a pain management doctor or primary care physician. I did offer her a dose of IM pain medication which she declined. She was given a dose of oxycodone in the ED. Patient is angry that she will not be receiving opiate pain medication prescription. I encouraged her to return to the emergency room if she notices any bleeding or has any worsening diarrhea vomiting or dehydration. Laboratory 03/05/18 03/05/18 11:20 11:20 WBC 4.7 RBC 3.06 L Hgb 9.2 L Hct 27.8 L MCV 91 MCH 30.2 MCHC 33.2 RDW 16.7 H Plt Count 593 H Seg Neutrophils % 79.3 H Lymphocytes % 11.6 L Monocytes % 8.3 Eosinophils % 0.5 Basophils % 0.3 Absolute Neutrophils 3.8 Absolute Lymphocytes 0.5 Absolute Monocytes 0.4 Absolute Eosinophils 0.0 Absolute Basophils 0.0 Sodium 145.6 H Potassium 3.4 L Chloride 106 Carbon Dioxide 32 H Anion Gap 8 BUN 18 Creatinine 0.71 Est GFR ( Amer) > 60 Est GFR (Non-Af Amer) > 60 Glucose 92 Calcium 7.7 L Total Bilirubin 0.3 Direct Bilirubin 0.2 Neonat Total Bilirubin Not Reportable Neonat Direct Bilirubin Not Reportable Neonat Indirect Bili Not Reportable AST 23 ALT 28 Alkaline Phosphatase 89 Total Protein 5.0 L Albumin 2.3 L Lipase 12.5 L She is stable at time of discharge. - Vital Signs Vital signs: Temp Pulse Resp BP Pulse Ox 98.5 F 97 18 105/70 98 03/05/18 10:53 03/05/18 10:53 03/05/18 10:53 03/05/18 10:53 03/05/18 10:53 - Laboratory Result Diagrams: 03/05/18 11:20 03/05/18 11:20 Laboratory results interpreted by me: 03/05/18 03/05/18 11:20 11:20 RBC 3.06 L Hgb 9.2 L Hct 27.8 L RDW 16.7 H Plt Count 593 H Seg Neutrophils % 79.3 H Lymphocytes % 11.6 L Sodium 145.6 H Potassium 3.4 L Carbon Dioxide 32 H Calcium 7.7 L Total Protein 5.0 L Albumin 2.3 L Lipase 12.5 L Discharge - Discharge Clinical Impression: Medication refill Crohn's colitis Qualifiers: Digestive disease complication type: without complication Qualified Code(s): K50.10 - Crohn's disease of large intestine without complications Anemia Qualifiers: Anemia type: iron deficiency Iron deficiency anemia type: unspecified iron deficiency Qualified Code(s): D50.9 - Iron deficiency anemia, unspecified Condition: Stable Disposition: HOME, SELF-CARE Instructions: Abdominal Pain ([facility]) Additional Instructions: Please return to the emergency department if you have any worsening, or concern of your symptoms. Please return to the emergency department if you develop chest pain, difficulty breathing, severe abdominal pain, or ongoing vomiting. Please follow-up with your primary care physician in 2-3 days and any other recommended physicians. If prescribed, take all medications as directed. If you have any questions or concerns do not hesitate to return the emergency department for evaluation. Please continue to pursue pain management for further treatment of your chronic abdominal pain. Return to the emergency room if you have any blood in your stool, lightheadedness or difficulty staying hydrated. Referrals: [facility] [Provider Group] - Follow up as needed
--- NOTE | 2018-03-05 12:45 | RADIOLOGY REPORT (SQ) ---
EXAM DESCRIPTION: ABDOMEN 2 VIEWS COMPLETED DATE/TIME: 03/05/2018 12:25 pm REASON FOR STUDY: Abdominal pain and history of Crohn's COMPARISON: Abdominal films 02/02/2017, 10/08/2017 CT abdomen and pelvis 01/13/2018, 02/01/2018 NUMBER OF VIEWS: Two views. TECHNIQUE: Supine and upright radiographic images of the abdomen acquired. LIMITATIONS: None. FINDINGS: FREE AIR: None. No abnormal gas collections. LUNG BASES: Clear. BOWEL GAS PATTERN: Grossly nonobstructive bowel gas pattern. No dilated loops or air fluid levels. CALCIFICATIONS: No suspicious calcifications. SOFT TISSUES: No gross mass or suggestion of organomegaly. HARDWARE: None in the abdomen. BONES: No acute fracture. No worrisome bone lesions. OTHER: No other significant finding. IMPRESSION: Grossly nonobstructive bowel gas pattern TECHNICAL DOCUMENTATION: JOB ID: [id number] [employer]- All Rights Reserved Reading location - IP/workstation name: [email or web address]
[2018-03-05 12:47] VITALS: BP 113/76
== END 2018-03-05 12:48 | disposition home or self-care (01) ==
LOC: ER 10:43
DX: K50.10 Crohn's disease of large intestine without complications (principal); D50.9 Iron deficiency anemia, unspecified; T45.4X6A Underdosing of iron and its compounds, initial encounter; Z91.128 Patient's intentional underdosing of medication regimen for other reason; Z91.14 Patient's other noncompliance with medication regimen; Z79.899 Other long term (current) drug therapy; Z79.52 Long term (current) use of systemic steroids; R10.30 Lower abdominal pain, unspecified; R19.7 Diarrhea, unspecified; Z76.0 Encounter for issue of repeat prescription; Z88.1 Allergy status to other antibiotic agents; Z88.5 Allergy status to narcotic agent
CPT/HCPCS: 36415; 74019; 80053; 83690; 85025; 99283

== ENCOUNTER 2018-03-14 06:17 | Emergency (ER) | payer SELFPAY ==
[2018-03-14] MEDS ORDERED: ONDANSETRON HCL INJ/PF 4 MG/2 ML SDV IV ONE (06:36)
[2018-03-14] MEDS ORDERED: KETOROLAC TROMETHAMINE INJ/PF 30 MG/1 ML SDV IV ONE (06:36)
[2018-03-14] MEDS ORDERED: NORMAL SALINE 1000 ML 1,000 ML IV ONE (06:36)
[2018-03-14 06:44] VITALS: BP 127/88
--- NOTE | 2018-03-14 06:44 | ER Document Report ---
ED General - General Chief Complaint: Chest Pain Stated Complaint: ABDOMINAL PAIN Time Seen by Provider: 03/14/18 06:23 TRAVEL OUTSIDE OF THE [place] IN LAST 30 DAYS: No - HPI Notes: Patient is a 47-year-old female that presents to the emergency department for chief complaint of abdominal pain, chest pain and leg edema. Patient reports substernal chest pain that has been constant for the last 3 weeks. She states it is worse when she eats. The pain is nonradiating. It is sharp in nature. She denies any relieving factors. She states the pain has been constant without any periods of resolution over the last 3 weeks. Patient also states she is having diffuse abdominal pain sharp with no aggravating or relieving factors. She does have Crohn's disease and is in the process of getting started on a new Crohn's medication which is still pending insurance approval. She states that oxycodone is what she usually takes at home but she does not currently have a prescription. Past Medical History: Crohn's disease Past Surgical History: Reviewed in chart Social History: History of cocaine abuse. Daily tobacco. Denies alcohol. Family History: Reviewed and noncontributory for presenting illness Allergies: Reviewed, see documented allergy list. REVIEW OF SYSTEMS: CONSTITUTIONAL : No fever No chills No diaphoresis No recent illness EENT: No vision changes No congestion No sore throat CARDIOVASCULAR: chest pain No palpitations RESPIRATORY: No shortness of breath No cough No difficulty breathing GASTROINTESTINAL: abdominal pain nausea vomiting No diarrhea GENITOURINARY: No dysuria No hematuria No difficulty urinating MUSCULOSKELETAL: No back pain leg pain No arm pain SKIN: No rashes No lesions LYMPHATIC: No swollen, enlarged glands. NEUROLOGICAL: No lightheadedness No headache No weakness No paresthesias PSYCHIATRIC: No anxiety No depression PHYSICAL EXAMINATION: Vital signs reviewed, nursing noted reviewed. GENERAL: Well-appearing, thin and in no acute distress. HEAD: Atraumatic, normocephalic. EYES: Eyes appear normal, extraocular movements intact, sclera anicteric, conjunctiva are normal. ENT: nares patent, oropharynx clear without exudates. Moist mucous membranes. NECK: Normal range of motion, supple without lymphadenopathy LUNGS: Breath sounds clear to auscultation bilaterally and equal. No wheezes rales or rhonchi. HEART: Regular rate and rhythm without murmurs ABDOMEN: Soft, diffusely tender, normoactive bowel sounds. No rebound, guarding , or rigidity. No masses appreciated. EXTREMITIES: Nontender, good range of motion. +2 pitting edema bilateral lower extremities L>R NEUROLOGICAL: No focal neurological deficits. Moves all extremities spontaneously Motor and sensory grossly intact on exam. PSYCH: Agitated, anxious, rapid pressured speech SKIN: Warm, Dry, normal turgor, no rashes or lesions noted on exposed skin - Related Data Allergies/Adverse Reactions: ceftriaxone sodium [From Rocephin] Allergy (Severe, Verified 03/14/18 06:45) Anaphylaxis Ciprofloxacin Lactate [From Cipro I.V.] Allergy (Intermediate, Verified 06:45) Hives morphine Allergy (Verified 03/14/18 06:45) aspirin [Aspirin] Adverse Reaction (Intermediate, Verified 03/14/18 06:45) GI distress tramadol [Tramadol] Adverse Reaction (Intermediate, Verified 03/14/18 06:45) GI upset Past Medical History - Social History Smoking Status: Current Every Day Smoker Family History: Reviewed & Not Pertinent, Hypertension, Malignancy - Lung cancer - Past Medical History Cardiac Medical History: Denies: Hx Heart Attack, Hx Hypercholesterolemia, Hx Hypertension Pulmonary Medical History: Reports: Hx Pneumonia Denies: Hx Asthma, Hx Bronchitis, Hx COPD, Hx Tuberculosis Neurological Medical History: Denies: Hx Seizures Endocrine Medical History: Denies: Hx Diabetes Mellitus Type 2, Hx Hyperthyroidism, Hx Hypothyroidism Renal/ Medical History: Denies: Hx Peritoneal Dialysis GI Medical History: Reports: Hx Crohn's Disease Psychiatric Medical History: Reports: Hx Depression Infectious Medical History: Denies: Hx C-Diff Past Surgical History: Reports: Hx Abdominal Surgery - fistula, Hx Tubal Ligation, Other - Exploratory laparoscopy and limited exploratory laparotomy in July 2015.. Denies: Hx Hysterectomy, Hx Pacemaker - Immunizations Hx Diphtheria, Pertussis, Tetanus Vaccination: Yes Physical Exam - Vital signs Vitals: Temp Pulse Resp BP Pulse Ox 98.1 F 111 H 24 H 127/88 H 100 03/14/18 06:20 03/14/18 06:20 03/14/18 06:20 03/14/18 06:20 03/14/18 06:20 Course - Re-evaluation Re-evalutation: 03/14/18 06:42 Vitals reviewed. Nursing notes reviewed. Patient is hemodynamically stable and mildly tachycardic. She appears anxious and is requesting pain medication. I saw this patient about 1 week ago at which time she had no complaint of chest pain which today she states has been ongoing for 3 weeks. EKG today shows tachycardia with no ischemia. Patient's lower extremity edema is new and ultrasound will be performed to evaluate for DVT. She does states she told her PCP about her edema this week and states it is unchanged since seeing her primary care doctor. 03/14/18 07:15 After patient received Toradol she started asking for Dilaudid. When she was informed that she would not be receiving IV opiates she is now requesting a new physician stating that she will wait as long as she needs until she gets a doctor who will give her stronger pain medication. I am concerned for drug- seeking behavior today. Patient is refusing to provide a urine sample. I did discuss her history of cocaine abuse with her and she states it has been "a while" since she last used. When I asked her to quantify how long a while is she became very agitated and refused to answer the question. Some of her tachycardia may be related to opiate withdrawal or acute cocaine intoxication 03/14/18 07:42 Patient's hemoglobin today has improved from previous visit. She has a history of iron deficiency anemia which is likely the cause. She has no report of active bleeding. Patient's glucose is 68 and I ordered her 12.5 mg of D50 for hypoglycemia. Patient is refusing the D50. She states she is still in pain. She is pointing to her epigastrium and since it is worse with swallowing I ordered a GI cocktail. Patient is refusing GI cocktail. She is requesting IV Dilaudid stating that if I do not give her Dilaudid then I am trying to kill her. I explained that there are other medications that may give her relief of her symptoms without using opiates. Patient has become verbally combative with myself and nursing staff. She does not wish to stay for the remainder of her workup. Her troponin currently is negative and she states her chest pain is been constant for 3 weeks, with constant chest pain and a negative troponin I do not clinically suspect ACS however I did express that if she is still using cocaine she is at a higher risk of cardiac disease. Patient does have lower extremity edema and venous duplex has been ordered to evaluate for possible DVT. Patient does not wish to obtain venous duplex. I did explain that I am trying to screen her for life-threatening illnesses including DVTs and that without doing further testing she is at risk of loss of life, limb or permanent disability. Patient understands and is still refusing workup. She would like to leave the hospital AGAINST MEDICAL ADVICE. I encouraged her to return for the venous duplex and further workup. She states she is going to another hospital that we will give her pain medication. Patient has capacity to understand her medical decisions. She understands that without further testing she is risking life, limb and permanent disability. She has been explained alternatives including further testing in the emergency room. She was encouraged to return for further workup at any point in time. Laboratory 03/14/18 03/14/18 03/14/18 06:22 06:22 06:22 WBC 6.7 RBC 3.27 L Hgb 10.0 L Hct 30.2 L MCV 92 MCH 30.6 MCHC 33.2 RDW 16.3 H Plt Count 428 Seg Neutrophils % 71.6 Lymphocytes % 16.7 Monocytes % 10.8 Eosinophils % 0.7 Basophils % 0.2 Absolute Neutrophils 4.8 Absolute Lymphocytes 1.1 Absolute Monocytes 0.7 Absolute Eosinophils 0.0 Absolute Basophils 0.0 Sodium 146.3 H Potassium 3.8 Chloride 105 Carbon Dioxide 25 Anion Gap 16 BUN 18 Creatinine 0.65 Est GFR ( Amer) > 60 Est GFR (Non-Af Amer) > 60 Glucose 68 L Calcium 8.3 L Total Bilirubin 1.4 H Direct Bilirubin 0.9 H Neonat Total Bilirubin Not Reportable Neonat Direct Bilirubin Not Reportable Neonat Indirect Bili Not Reportable AST 23 ALT 36 Alkaline Phosphatase 114 Troponin I < 0.012 Total Protein 6.1 L Albumin 2.6 L Lipase < 10.0 L Serum Alcohol < 10 Prior to receiving discharge paperwork and AMA paperwork patient ambulated out of the emergency room. She had a normal gait and appeared to be in no acute distress. When the nurse asked her to sign the paperwork in the waiting room she marked and "X" and walked away. - Vital Signs Vital signs: Temp Pulse Resp BP Pulse Ox 98.1 F 111 H 24 H 127/88 H 100 03/14/18 06:20 03/14/18 06:20 03/14/18 06:20 03/14/18 06:20 03/14/18 06:20 - Laboratory Result Diagrams: 03/14/18 06:22 03/14/18 06:22 Laboratory results interpreted by me: 03/14/18 03/14/18 06:22 06:22 RBC 3.27 L Hgb 10.0 L Hct 30.2 L RDW 16.3 H Sodium 146.3 H Glucose 68 L Calcium 8.3 L Total Bilirubin 1.4 H Direct Bilirubin 0.9 H Total Protein 6.1 L Albumin 2.6 L Lipase < 10.0 L - EKG Interpretation by Me Additional EKG results interpreted by me: 03/14/18 06:43 Interpreted by myself Sinus tachycardia, rate 110, normal axis, no ectopy, no ST elevation Discharge - Discharge Clinical Impression: Drug-seeking behavior, Hypoglycemia Abdominal pain Qualifiers: Abdominal location: generalized Qualified Code(s): R10.84 - Generalized abdominal pain Chest pain Qualifiers: Chest pain type: unspecified Qualified Code(s): R07.9 - Chest pain, unspecified Condition: Stable Disposition: AGAINST MEDICAL ADVICE Additional Instructions: Please return to the emergency department if you have any worsening, or concern of your symptoms. Please return to the emergency department if you develop chest pain, difficulty breathing, severe abdominal pain, or ongoing vomiting. Please follow-up with your primary care physician in 2-3 days and any other recommended physicians. If prescribed, take all medications as directed. If you have any questions or concerns do not hesitate to return the emergency department for evaluation. You have some swelling in your lower extremities which I would like to perform a ultrasound on to see if there is an underlying blood clot called a DVT. If there is this can be life-threatening without further treatment. By leaving AGAINST MEDICAL ADVICE you are risking loss of life, limb and permanent disability. Please return for further workup at any point in time
[2018-03-14 06:48] LABS: ABSOLUTE LYMPHOCYTES (AUTO) 1.1 10^3/uL (0.5-4.7); ABSOLUTE MONOCYTES (AUTO) 0.7 10^3/uL (0.1-1.4); ABSOLUTE NEUT (AUTO) 4.8 10^3/uL (1.7-8.2); BASOPHILS % (AUTO) 0.2 % (0-2); EOSINOPHILS % (AUTO) 0.7 % (0-6); HEMATOCRIT 30.2 % (36.0-47.0); LYMPHOCYTES % (AUTO) 16.7 % (13-45); MEAN CORPUSCULAR HEMOGLOBIN 30.6 pg (27.0-33.4); MEAN CORPUSCULAR HGB CONC 33.2 g/dL (32.0-36.0); MEAN CORPUSCULAR VOLUME 92 fl (80-97); MONOCYTES % (AUTO) 10.8 % (3-13); PLATELET COUNT 428 10^3/uL (150-450); RED BLOOD COUNT 3.27 10^6/uL (3.72-5.28); RED CELL DISTRIBUTION WIDTH 16.3 % (11.5-14.0); SEGMENTED NEUTROPHILS % (AUTO) 71.6 % (42-78); TOTAL CELLS COUNTED % (AUTO) 100 %; WHITE BLOOD COUNT 6.7 10^3/uL (4.0-10.5)
[2018-03-14 07:01] LABS: ALANINE AMINOTRANSFERASE 36 U/L (9-52); ALBUMIN 2.6 g/dL (3.5-5.0); ALKALINE PHOSPHATASE 114 U/L (38-126); ANION GAP 16 (5-19); ASPARTATE AMINO TRANSFERASE 23 U/L (14-36); BILIRUBIN,DIRECT 0.9 mg/dL (0.0-0.4); BILIRUBIN,TOTAL 1.4 mg/dL (0.2-1.3); BLOOD UREA NITROGEN 18 mg/dL (7-20); CALCIUM 8.3 mg/dL (8.4-10.2); CARBON DIOXIDE 25 mmol/L (22-30); CHLORIDE 105 mmol/L (98-107); GLUCOSE 68 mg/dL (75-110); POTASSIUM 3.8 mmol/L (3.6-5.0); SODIUM 146.3 mmol/L (137-145); TOTAL PROTEIN 6.1 g/dL (6.3-8.2)
[2018-03-14 07:07] LABS: ALCOHOL < 10 mg/dL (NONE DETECTED); LIPASE < 10.0 U/L (23-300)
[2018-03-14] MEDS ORDERED: DEXTROSE 50%-WATER 25 GM/50 ML DISP.SYRIN IV ONE ×2 (07:23→07:31)
[2018-03-14] MEDS ORDERED: MAG HYDROX/AL HYDROX/SIMETH SUSP 30 ML UDCUP PO ONE (07:28)
[2018-03-14] MEDS ORDERED: METOCLOPRAMIDE HCL ORAL SOLN 10 MG/10 ML UDCUP PO ONE (07:28)
[2018-03-14] MEDS ORDERED: LIDOCAINE 2% VISCOUS SOLN 20 ML UDCUP PO ONE (07:28)
--- NOTE | 2018-03-14 07:56 | RADIOLOGY REPORT (SQ) ---
EXAM DESCRIPTION: X-ray abdomen 1 view CLINICAL DATA: 47-year-old female with lower abdominal pain, nausea, vomiting and diarrhea. TECHNICAL DATA: A single AP supine x-ray of the abdomen was performed on 03/14/2018 at 10:03 AM. Comparison: 03/05/2018. FINDINGS: The bowel gas pattern is nonspecific and nonobstructive. There are surgical clips in the central abdomen. Occasional pelvic phleboliths are noted. No abnormal air collections are identified. No focal soft tissue abnormalities are seen. No acute osseous abnormalities are identified. IMPRESSION: Nonspecific nonobstructive bowel gas pattern.
--- NOTE | 2018-03-14 09:10 | EKG REPORT ---
SEVERITY:- OTHERWISE NORMAL ECG - SINUS TACHYCARDIA MINIMAL ST DEPRESSION, INFERIOR LEADS : Confirmed by: Daryl Winston 14-Mar-2018 09:09:35
== END 2018-03-14 07:48 | disposition left against medical advice (07) ==
LOC: ER 06:17
DX: R10.84 Generalized abdominal pain (principal); R07.9 Chest pain, unspecified; E16.2 Hypoglycemia, unspecified; Z76.5 Malingerer [conscious simulation]; R60.0 Localized edema; F17.200 Nicotine dependence, unspecified, uncomplicated
CPT/HCPCS: 93005; 99284; 96361; 96374; 96375; 36415; 80307; 83690; 85025; 80053; 84484; 74018; 93010; J1885; J2405; J7030

== ENCOUNTER 2018-03-18 09:05 | Emergency (ER) | payer SELFPAY ==
[2018-03-18 10:59] LABS: ALANINE AMINOTRANSFERASE 31 U/L (9-52); ALBUMIN 1.8 g/dL (3.5-5.0); ALKALINE PHOSPHATASE 80 U/L (38-126); ANION GAP 9 (5-19); ASPARTATE AMINO TRANSFERASE 20 U/L (14-36); BILIRUBIN,DIRECT 0.4 mg/dL (0.0-0.4); BILIRUBIN,TOTAL 0.7 mg/dL (0.2-1.3); BLOOD UREA NITROGEN 15 mg/dL (7-20); CALCIUM 7.2 mg/dL (8.4-10.2); CARBON DIOXIDE 28 mmol/L (22-30); CHLORIDE 106 mmol/L (98-107); GLUCOSE 124 mg/dL (75-110); POTASSIUM 3.7 mmol/L (3.6-5.0); SODIUM 142.5 mmol/L (137-145); TOTAL PROTEIN 4.6 g/dL (6.3-8.2)
[2018-03-18 11:02] LABS: LIPASE < 10.0 U/L (23-300)
[2018-03-18 11:12] LABS: ABSOLUTE LYMPHOCYTES (AUTO) 0.9 10^3/uL (0.5-4.7); ABSOLUTE MONOCYTES (AUTO) 0.6 10^3/uL (0.1-1.4); ABSOLUTE NEUT (AUTO) 3.4 10^3/uL (1.7-8.2); BASOPHILS % (AUTO) 0.5 % (0-2); EOSINOPHILS % (AUTO) 0.3 % (0-6); HEMATOCRIT 23.6 % (36.0-47.0); LYMPHOCYTES % (AUTO) 17.5 % (13-45); MEAN CORPUSCULAR HEMOGLOBIN 30.2 pg (27.0-33.4); MEAN CORPUSCULAR HGB CONC 33.3 g/dL (32.0-36.0); MEAN CORPUSCULAR VOLUME 91 fl (80-97); MONOCYTES % (AUTO) 11.8 % (3-13); PLATELET COUNT 548 10^3/uL (150-450); RED CELL DISTRIBUTION WIDTH 16.6 % (11.5-14.0); SEGMENTED NEUTROPHILS % (AUTO) 69.9 % (42-78); TOTAL CELLS COUNTED % (AUTO) 100 %; WHITE BLOOD COUNT 4.9 10^3/uL (4.0-10.5)
[2018-03-18 11:13] LABS: HEMOGLOBIN 7.9 g/dL (12.0-15.5)
[2018-03-18 12:07] LABS: APPEARANCE,URINE SLIGHTLY-CLOUDY; BILIRUBIN,URINE SMALL (NEGATIVE); COLOR,URINE AMBER; GLUCOSE, URINE NEGATIVE (NEGATIVE); KETONES,URINE NEGATIVE (NEGATIVE); LEUKOCYTE ESTERASE,URINE NEGATIVE (NEGATIVE); NITRITE,URINE NEGATIVE (NEGATIVE); PROTEIN,URINE NEGATIVE (NEGATIVE); URINE SPECIFIC GRAVITY 1.023
--- NOTE | 2018-03-18 12:30 | ER Document Report ---
ED General - General Chief Complaint: Abdominal Pain Stated Complaint: ABDOMINAL PAIN Time Seen by Provider: 03/18/18 09:25 Notes: Patient is here for pain which is been present for many months. She has a history of Crohn's disease. Says that she has been unable to eat anything for the past 5 days. Says she has difficulty even drinking water. As not had any diarrhea. In fact, she has had 3 days without any bowel movement. She is not been vomiting. Has not had any fever. Patient was recently seen by her supervisor detasseling crew, who put her on prednisone, but then on a subsequent visit in mid February she was advised to take the prednisone differently. She says she has some prednisone pills at home. She also has nausea vomiting medications at home. Has been to this emergency department for the same condition 21 visits in the past 3 years. She goes to primary care and gastroenterology physicians in [place] and does not have a local physician. She says that she just got insurance coverage so that she can see these doctors in [place] and thus far she has not been able to get pain medications but in a limited amount from the internal medicine doctor, Dr Brown. According to the [place] database, Dr. Brown prescribed 12 pills of oxycodone and then 30 pills of oxycodone in the past couple of weeks. TRAVEL OUTSIDE OF THE U.S. IN LAST 30 DAYS: No - Related Data Allergies/Adverse Reactions: ceftriaxone sodium [From Rocephin] Allergy (Severe, Verified 03/18/18 09:19) Anaphylaxis Ciprofloxacin Lactate [From Cipro I.V.] Allergy (Intermediate, Verified 09:19) Hives morphine Allergy (Verified 03/18/18 09:19) aspirin [Aspirin] Adverse Reaction (Intermediate, Verified 03/18/18 09:19) GI distress tramadol [Tramadol] Adverse Reaction (Intermediate, Verified 03/18/18 09:19) GI upset Past Medical History - Social History Smoking Status: Current Every Day Smoker Frequency of alcohol use: None Drug Abuse: None Family History: Reviewed & Not Pertinent, Hypertension, Malignancy - Lung cancer Patient has suicidal ideation: No Patient has homicidal ideation: No Pulmonary Medical History: Reports: Hx Pneumonia GI Medical History: Reports: Hx Crohn's Disease Psychiatric Medical History: Reports: Hx Depression Past Surgical History: Reports: Hx Abdominal Surgery - fistula repair and transfer to [facility]., Hx Tubal Ligation, Other - Exploratory laparoscopy and limited exploratory laparotomy in July 2015. - Immunizations Hx Diphtheria, Pertussis, Tetanus Vaccination: Yes Review of Systems - Review of Systems Notes: REVIEW OF SYSTEMS: CONSTITUTIONAL : Denies fever. EENT: Denies eye, ear, nose or mouth or throat pain or other symptoms. CARDIOVASCULAR: Denies chest pain. RESPIRATORY: Denies cough, chest congestion, or shortness of breath. GASTROINTESTINAL: See HPI. Patient says she has not had any bleeding from her bowels for at least 3 weeks.. GENITOURINARY: Denies difficulty or painful urinating, urinary frequency, blood in urine. MUSCULOSKELETAL: Denies back or neck pain. Denies joint pain or swelling. Patient complains of pain in her left ankle that is swollen for the past month. She now says that her right foot and ankle are starting to swell. Has never had any problems with blood clots. SKIN: Denies rash or skin lesions. NEUROLOGICAL: Denies LOC or altered mental status. Denies headache. Denies sensory loss or motor deficits. ALL OTHER SYSTEMS REVIEWED AND NEGATIVE. Physical Exam - Vital signs Vitals: Temp Pulse Resp BP Pulse Ox 98.4 F 105 H 18 110/83 100 03/18/18 09:05 03/18/18 09:05 03/18/18 09:05 03/18/18 09:05 03/18/18 09:05 Interpretation: Normal Notes: PHYSICAL EXAMINATION: GENERAL: Depressed face. in no acute distress. HEAD: Atraumatic, normocephalic. EYES: Pupils equal round and reactive to light, extraocular movements intact. ENT: oropharynx clear without exudates. Moist mucous membranes. NECK: Normal range of motion, supple. LUNGS: Breath sounds clear and equal bilaterally. HEART: Regular rate and rhythm without murmurs. ABDOMEN: Diffuse tenderness throughout the entire abdomen. No guarding and no rebound. No masses present. No bruits heard. BACK: No tenderness throughout entire back. EXTREMITIES: Normal range of motion without pain. Swelling around the left ankle and proximal foot very minimal swelling around the right ankle. NEUROLOGICAL: Normal speech, normal gait. Normal sensory, motor, and reflex exams. Awake, alert, and oriented x3. Cranial nerves normal. PSYCH: Normal mood, normal affect. SKIN: Warm, dry, no rashes. Course - Re-evaluation Re-evalutation: 03/18/18 12:28 Earlier this morning, spoke with Dr. Borwn, cnc applications engineer in [place]. He recommended discharging the patient on about a dozen Percocets and follow-up with them. He wrote the most recent 2 prescriptions the patient has received that are listed in the [facility] pharmacy database. Just finished speaking with Dr. Noe, supervisor detasseling crew at [facility]. She recommended repeating the patient's hemoglobin as well as sed rates and CRPs and C. difficile tests and also repeat her CT scan. Recommended not transfusing unless active bleeding noted or significant further drop in hemoglobin noted. 03/18/18 19:23 Labs repeated as requested showing some elevation in the sed rate and some more elevation of the C-reactive protein. Repeat hemoglobin, however, went up to 8.6. Patient's stool guaiac was negative. Do not think that she requires transfusion. I subsequently spoke with general surgeon on-call, Dr. Colin, who said the patient does not require any immediate surgical procedure and is more of a medical management issue at this time. I spoke further a second time with Dr. Noe and then also with the hospitalist organic section technical lead at [facility] and all of them are of the same opinion that the patient required medical management at this point. I spoke with our surgeon as well and he agreed with that plan. Patient has prednisone at home and she has nausea and vomiting medicines at home oxycodone 5 mg and advised her that she will not get any more pain medications here and she needs to keep her appointment with her gastroenterology doctors in [place] on the . She will have to use the prescribed pain pills sparingly. I cannot find any lab tests that substantiate the patient's claim that she has not eaten anything for 5 days. Almost all of her lab studies are essentially normal except for her anemia. There is nothing in her urine or her electrolytes that suggest that she is deficient in food and fluid intake. In fact, nursing staff went back and got patient's weights from recent visits. Patient weighed 42 kg on February 02, 1940 4.5 kg on March 05, 1940 1.4 kg on March 14 and 43.5 kg today. She is actually gained 2 kg in the past 5 days acclamation point. Patient was advised to return if she begins to run a fever, develops uncontrollable vomiting, or worsening or new significant abdominal pain. Patient had bilateral venous Doppler studies done and there is no evidence of clots in her legs. She had detectable pulses in her feet by ultrasound. I do not know what may be causing her foot swelling and suggested primary care follow -up for further investigation. - Vital Signs Vital signs: Temp Pulse Resp BP Pulse Ox 98.4 F 82 18 108/78 97 03/18/18 17:50 03/18/18 17:50 03/18/18 17:50 03/18/18 17:50 03/18/18 17:50 - Laboratory Result Diagrams: 03/18/18 12:59 03/18/18 09:13 Laboratory results interpreted by me: 03/18/18 03/18/18 03/18/18 09:13 09:13 11:54 RBC 2.60 L Hgb 7.9 L Hct 23.6 L RDW 16.6 H Plt Count 548 H ESR Creatinine 0.51 L Glucose 124 H Calcium 7.2 L C-Reactive Protein Total Protein 4.6 L Albumin 1.8 L Lipase < 10.0 L Urine Bilirubin SMALL H Urine Urobilinogen 4.0 H 03/18/18 03/18/18 03/18/18 12:59 12:59 12:59 RBC 2.82 L Hgb 8.6 L Hct 25.9 L RDW 16.9 H Plt Count 545 H ESR 35 H Creatinine Glucose Calcium C-Reactive Protein 152.8 H Total Protein Albumin Lipase Urine Bilirubin Urine Urobilinogen Discharge - Discharge Clinical Impression: Abdominal pain, Crohns disease Condition: Stable Disposition: HOME, SELF-CARE Additional Instructions: ABDOMINAL PAIN: There are many causes of abdominal pain. Pain can mean a serious problem requiring surgery (such as appendicitis). It can also be an innocent problem that goes away on its own (such as a viral infection). Often, time must pass to determine the cause of pain. The physician does not feel that hospitalization is necessary, at present. Things may change within the next 24 hours. Call the doctor or come back for re- examination if any problems occur, such as: (1) Pain that becomes more severe, steady, or becomes concentrated in one specific area. Also, pain that is more severe with movement or coughing. (2) Vomiting that persists or becomes more frequent. (3) Blood in the vomitus, urine, or bowel movements. Blood in the stool may have a tarry or black appearance. (4) Shaking chills or fever greater than 100 degrees F. (5) The abdomen becomes more distended or swollen. (6) Bowel movements cease. (7) Failure to improve as expected. Crohn's Disease Crohn's disease is an inflammatory disease of the intestines, affecting both the large and small intestine. The cause is unknown. Often there is vague abdominal pain and diarrhea for years before the diagnosis is made. The disease causes spotty thickening and inflammation of the bowel wall. With Crohn's disease, rectal fissures and abscesses are common. So is perforation of the bowel and internal abscess. The disease tends to flare spontaneously, then quiet down again. It never goes away completely. There is no cure for Crohn's disease. Acute flare-ups can be treated with steroids (such as prednisone), sometimes in combination with other medicines. Antibiotics (usually metronidazole) are often helpful. Sulfasalazine can ease the inflammation during flare-ups. Antidiarrhea medicine is taken as needed. Surgery may be needed for intestinal blockage, perforation, or hemorrhage. But surgery doesn't cure the disease -- it comes back in other places. Crohn's disease can cause immune disease in other body parts. Some patients will develop eye inflammation, arthritis, stiffened spine, liver inflammation, or skin disease. Kidney stones are more common in Crohn's patients. Lactose intolerance is common. There is a significant risk of developing a bowel tumor. Call the doctor if you have increasing abdominal pain, repeated vomiting, fever, rectal bleeding, or worsening diarrhea. TORADOL INJECTION: You have been given an injection of ketorolac tromethamine (Toradol). This is an excellent, safe drug for pain control. It also has potent antiinflammatory action. You should have significant pain relief within about one hour. Toradol is not addicting and is non-sedating. It does not interfere with driving or work. Call or return if you develop itching, hives, shortness of breath, or rash. ANTINAUSEA MEDICATION: You have been given a medication to suppress nausea and vomiting. This type of medication can be given as a shot, pill, or suppository. It will usually last for many hours. Pills and shots usually last six to eight hours, suppositories last about 12 hours. For the typical illness, only one or two doses of the medication may be necessary. Mild lightheadedness may occur. This type of medicine can cause drowsiness. Do not drive or operate dangerous machinery while under its influence. Do not mix with alcohol. See your doctor at once if you have muscle spasms or tightness, or uncontrollable motions (particularly of the neck, mouth, or jaw). Persistent vomiting or severe lightheadedness should also be evaluated by the physician. ORAL NARCOTIC MEDICATION: You have been given a prescription for pain control. This medication is a narcotic. It's best taken with food, as nausea can result if taken on an empty stomach. Don't operate machinery or drive within six hours of taking this medication. Do not combine this medicine with alcohol, or with any medication which can cause sedation (such as cold tablets or sleeping pills) unless you get permission from the physician. Narcotics tend to cause constipation. If possible, drink plenty of fluids and eat a diet high in fiber and fruits. Please be aware that prescription narcotics also have the potential for abuse. People become addicted to these medications because of the general sense of wellbeing that they induce. This feeling along with a significant reduction in tension, anxiety, and aggression provides a stimulating seductive quality to these drugs. Once your pain is under control, we encourage you to discard your unused narcotics. FOLLOW-UP CARE: If you have been referred to a physician for follow-up care, call the physician s office for an appointment as you were instructed or within the next two days. If you experience worsening or a significant change in your symptoms, notify the physician immediately or return to the Emergency Department at any time for re-evaluation. Return for reevaluation at any time if you start having fevers, vomiting uncontrollably, or new or worsening pains. Take your prednisone starting with 6 tablets a day and then 1 less tablet each day thereafter until down to 1 tablet and just take 1 tablet daily after that. Use the pain medication as prescribed sparingly as we do not routinely prescribe chronic pain medications. Chronic Pain Control Stress, inactivity, and depression make pain more severe regardless of the cause of the pain. Stress and poor physical condition can cause pain such as headaches and backache. Relaxation: Rest in a quiet place with your eyes closed for 20 minutes twice daily. Concentrate on a pleasant image, or simply "feel" your breathing. Clear your mind. Stress management: Deal with your "stressors." Either take action, or eliminate the stressor from your life. Don't let things hang over you. Accept those things you can't change. Nutrition: Eat small, balanced meals -- don't skip, don't overeat. Meals should be high-carbohydrate, low-sugar, low-fat. Exercise: Exercise helps painful conditions and eases stress. Get 30 minutes of moderate exercise, five days a week. Do an activity that does not flare your pain. Precautions: Pain which continues to disrupt daily activities, or which changes in nature, requires a medical evaluation. Pain Clinic referral is available. We do not manage chronic pain in the Emergency Department. We will try to appropriately help you through an acute flare of your chronic painful condition , but for on-going chronic pain that does not improve, you will need to see your private doctor or paperhanger and painter. We do not provide repeated medication management of chronic painful conditions. If you wish, we can provide the name of local pain management physicians. Keep your appointment with the gastroenterology doctors and [facility] at [facility] on March 30, as scheduled. Prescriptions: Oxycodone HCl [Roxicodone] 5 mg PO Q6HP PRN #30 tablet PRN Reason:
[2018-03-18 12:32] LABS: URINE AMPHETAMINES SCREEN NEGATIVE; URINE BARBITURATES SCREEN NEGATIVE; URINE BENZODIAZEPINES SCREEN NEGATIVE; URINE COCAINE SCREEN NEGATIVE; URINE MARIJUANA (THC) SCREEN NEGATIVE; URINE METHADONE SCREEN NEGATIVE; URINE PHENCYCLIDINE SCREEN NEGATIVE
[2018-03-18] MEDS ORDERED: KETOROLAC TROMETHAMINE INJ/PF 30 MG/1 ML SDV IV ONE (12:45)
[2018-03-18] MEDS ORDERED: TRAMADOL HCL 50 MG TABLET PO ONE (12:45)
[2018-03-18 13:08] LABS: HEMATOCRIT 25.9 % (36.0-47.0); HEMOGLOBIN 8.6 g/dL (12.0-15.5); MEAN CORPUSCULAR HEMOGLOBIN 30.5 pg (27.0-33.4); MEAN CORPUSCULAR HGB CONC 33.1 g/dL (32.0-36.0); MEAN CORPUSCULAR VOLUME 92 fl (80-97); PLATELET COUNT 545 10^3/uL (150-450); RED BLOOD COUNT 2.82 10^6/uL (3.72-5.28); RED CELL DISTRIBUTION WIDTH 16.9 % (11.5-14.0); WHITE BLOOD COUNT 4.7 10^3/uL (4.0-10.5)
--- NOTE | 2018-03-18 13:10 | XCELERA REPORT ---
[address] [address] Lower Extremity Venous Evaluation Procedure: Color flow and duplex imaging bilaterally of the veins of the lower extremities as well as the Common Femoral veins. Right Sided Venous Evaluation Normal velocity, triphasic signal at the Posterior Tibial artery. Low velocity with biphasic in the Dorsalis Pedis. Normal vessel filling wall to wall, compression and augmentation as well as Colour flow down to the infrageniculate veins. Left Sided Venous Evaluation Normal velocity, triphasic signal at the Posterior Tibial and Dorsalis Pedis. Normal vessel filling wall to wall, compression and augmentation as well as Colour flow down to the infrageniculate veins. Interpretation Summary No duplex evidence of DVT or obstruction in the bilateral lower extremities. Minimal evaluation in ankle arteries, close to normal. Name: ANALISA BOLAND Age: 47 yrs Gender: Female : 1970 Patient Status: Emergency Patient Location: ER Study Date: 03/18/2018 10:51 AM Reason For Study: Swelling of both lower legs, left greater than rig Ordering Physician: YASH STEWARD Performed By: oMy Coffey : YASH STEWARD > Kvng Tamez
--- NOTE | 2018-03-18 14:51 | RADIOLOGY REPORT (SQ) ---
EXAM DESCRIPTION: CT ABD/PELVIS WITH IV ORAL COMPLETED DATE/TIME: 03/18/2018 2:16 pm REASON FOR STUDY: Abdominal pain, Hx Crohn's COMPARISON: [address] abdomen pelvis exams since 10/30/2010, most recently 02/01/2018, 07/31/2017, TECHNIQUE: CT scan of the abdomen and pelvis performed using helical scanning technique with dynamic intravenous contrast injection. No oral contrast. Images reviewed with lung, soft tissue, and bone windows. Reconstructed coronal and sagittal MPR images reviewed. Delayed images for evaluation of the urinary system also acquired. All images stored on PACS. All CT scanners at this facility use dose modulation, iterative reconstruction, and/or weight based d osing when appropriate to reduce radiation dose to as low as reasonably achievable (ALARA). [facility]: Dose Right [facility]: CareDose [facility]: Dose Right [facility]: Teradose 4D [facility]: [employer] CONTRAST TYPE AND DOSE: 40 mL of IV Omnipaque 350- low osmolar. RENAL FUNCTION: Creatinine 0.51 RADIATION DOSE: CT Rad equipment meets quality standard of care and radiation dose reduction techniq ues were employed. CTDIvol: 4.8 - 4.8 mGy. DLP: 470 mGy-cm.. LIMITATIONS: None. FINDINGS: On coronal images 11 through 18, there is a phlegmonous inflamed transverse colon, small b owel, and duodenum with luminal irregularity and wall thickening from patient's known Crohn's disease . This is similar compared to studies dating back to 2016. No gross free intraperitoneal air or flu id. No high-grade bowel obstruction. These findings were discussed with Dr. Solorio in the emergenc y room. LOWER CHEST: No significant findings. No nodules or infiltrates. LIVER: There is now profound fatty infiltration of the liver which is new compared to studies from [facility]2016 and July 2017, and progressive since CT abdomen pelvis 02/01/2018. SPLEEN: Normal size. No focal lesions. PANCREAS: No gross peripancreatic retro peritoneal inflammatory change GALLBLADDER: No identified stones by CT criteria. No inflammatory changes to suggest cholecystitis. ADRENAL GLANDS: No significant masses or asymmetry. RIGHT KIDNEY AND URETER: No solid masses. No significant calcifications. No hydronephrosis or hyd roureter. LEFT KIDNEY AND URETER: No solid masses. No significant calcifications. No hydronephrosis or hydr oureter. AORTA AND VESSELS: No aneurysm. No dissection. Renal arteries, SMA, celiac without stenosis. RETROPERITONEUM: No retroperitoneal adenopathy, hemorrhage or masses. BOWEL AND PERITONEAL CAVITY: As above APPENDIX: Not identified PELVIS: No mass. No free fluid. Normal bladder. Normal size female pelvic organs ABDOMINAL WALL: No masses. No hernias. BONES: No significant or acute findings. OTHER: No other significant finding. IMPRESSION: Crohn's disease with phlegmon in the mid epigastrium with inflamed transverse colon smal l bowel and duodenum, similar compared to multiple previous studies. This finding along with the patient's abdominal and pelvic radiation exposure was discussed with Dr. Solorio in the emergency room TECHNICAL DOCUMENTATION: JOB ID: [id number] Quality ID # [id number]: Final reports with documentation of one or more dose reduction techniques (e.g., Au tomated exposure control, adjustment of the mA and/or kV according to patient size, use of iterative reconstruction technique) 2010 [employer]- All Rights Reserved Reading location - IP/workstation name: [email or web address]
[2018-03-18] MEDS ORDERED: OXYCODONE HCL IR 5 MG TABLET PO ONE (17:15)
[2018-03-18] MEDS ORDERED: METHYLPREDNISOLONE INJ 125 MG/2 ML SDV IV ONE (17:18)
[2018-03-18 18:50] VITALS: BP 108/78
== END 2018-03-18 17:50 | disposition home or self-care (01) ==
LOC: ER 09:05
DX: K50.90 Crohn's disease, unspecified, without complications (principal); R10.9 Unspecified abdominal pain; R11.2 Nausea with vomiting, unspecified; Z79.899 Other long term (current) drug therapy; F17.200 Nicotine dependence, unspecified, uncomplicated
CPT/HCPCS: 99285; 36415; 83690; 84550; 85025; 85027; 85652; 82272; 86140; 80053; 81001; 80307; 87493; 93970 ×2; 74177; J2930; J1885

== ENCOUNTER 2018-08-10 14:34 | Emergency (ER) | payer MEDICAID ==
--- NOTE | 2018-08-10 16:25 | ER Document Report ---
ED Medical Screen (RME) - General Chief Complaint: Abdominal Pain Stated Complaint: ABDOMINAL PAIN Time Seen by Provider: 08/10/18 16:19 Mode of Arrival: Ambulatory Information source: Patient TRAVEL OUTSIDE OF THE [place] IN LAST 30 DAYS: No - HPI Patient complains to provider of: HAILEEO PAIN Notes: 08/10/18 16:23 Patient is here with complaints of pain in her abdomen. The patient has a right lower quadrant ostomy in place. She states that her back is been leaking she is having some redness and irritation around this area in her skin. She states that she also has deeper pain in her abdomen. No fever. No vomiting. Exam Nontoxic, no distress. Right lower quadrant ostomy in place. Stoma beefy red. There is some leakage noted with some skin irritation and redness surrounding the area. She also has some mid and left lower quadrant abdominal tenderness to palpation. Lungs clear and equal throughout. Heart sounds normal. Plan CBC, CMP, lipase, urine, IV, CT abdomen pelvis due to abdominal tenderness on limited triage abdominal exam. An initial examination was made on the patient as part of the triage process, and it was determined a more comprehensive evaluation was necessary. Initial labs were ordered and patient was transferred to another provider in the ED who assumed care and finished evaluation and plan. - Related Data Allergies/Adverse Reactions: ceftriaxone sodium [From Rocephin] Allergy (Severe, Verified 03/18/18 09:19) Anaphylaxis Ciprofloxacin Lactate [From Cipro I.V.] Allergy (Intermediate, Verified 03/18/18 09:19) Hives morphine Allergy (Verified 03/18/18 09:19) aspirin [Aspirin] Adverse Reaction (Intermediate, Verified 03/18/18 09:19) GI distress tramadol [Tramadol] Adverse Reaction (Intermediate, Verified 03/18/18 09:19) GI upset Past Medical History - Social History Frequency of alcohol use: None Drug Abuse: None Family history: Reviewed & Not Pertinent - Past Medical History Cardiac Medical History: Denies: Hx Heart Attack, Hx Hypercholesterolemia, Hx Hypertension Pulmonary Medical History: Reports: Hx Pneumonia Denies: Hx Asthma, Hx Bronchitis, Hx COPD, Hx Tuberculosis Neurological Medical History: Denies: Hx Seizures Endocrine Medical History: Denies: Hx Diabetes Mellitus Type 2, Hx Hy perthyroidism, Hx Hypothyroidism Renal/ Medical History: Denies: Hx Peritoneal Dialysis GI Medical History: Reports: Hx Crohn's Disease Psychiatric Medical History: Reports: Hx Depression Infectious Medical History: Denies: Hx C-Diff Past Surgical History: Reports: Hx Abdominal Surgery - fistula repair and transfer to [facility] Hx Tubal Ligation, Other - Exploratory laparoscopy and limited exploratory laparotomy in July 2015.. Denies: Hx Hysterectomy, Hx Pacemaker - Immunizations Hx Diphtheria, Pertussis, Tetanus Vaccination: Yes History of Influenza Vaccine for 01/2017 - 06/2017 Season: Refused Physical Exam - Vital signs Vitals: Temp Pulse Resp BP Pulse Ox 97.8 F 107 H 18 107/73 98 08/10/18 14:48 08/10/18 14:48 08/10/18 14:48 08/10/18 14:48 08/10/18 14:48 Course - Vital Signs Vital signs: Temp Pulse Resp BP Pulse Ox 97.8 F 107 H 18 107/73 98 08/10/18 14:48 08/10/18 14:48 08/10/18 14:48 08/10/18 14:48 08/10/18 14:48
[2018-08-10 17:18] LABS: ABSOLUTE BASOPHILS # (AUTO) 0.1 10^3/uL (0.0-0.2); ABSOLUTE EOSINOPHILS # (AUTO) 0.3 10^3/uL (0.0-0.6); ABSOLUTE LYMPHOCYTES (AUTO) 1.6 10^3/uL (0.5-4.7); ABSOLUTE MONOCYTES (AUTO) 0.5 10^3/uL (0.1-1.4); ABSOLUTE NEUT (AUTO) 3.6 10^3/uL (1.7-8.2); BASOPHILS % (AUTO) 1.1 % (0-2); EOSINOPHILS % (AUTO) 4.3 % (0-6); HEMATOCRIT 36.6 % (36.0-47.0); HEMOGLOBIN 12.2 g/dL (12.0-15.5); LYMPHOCYTES % (AUTO) 26.4 % (13-45); MEAN CORPUSCULAR HEMOGLOBIN 30.6 pg (27.0-33.4); MEAN CORPUSCULAR HGB CONC 33.4 g/dL (32.0-36.0); MEAN CORPUSCULAR VOLUME 92 fl (80-97); MONOCYTES % (AUTO) 8.7 % (3-13); PLATELET COUNT 470 10^3/uL (150-450); RED CELL DISTRIBUTION WIDTH 16.8 % (11.5-14.0); SEGMENTED NEUTROPHILS % (AUTO) 59.5 % (42-78); TOTAL CELLS COUNTED % (AUTO) 100 %; WHITE BLOOD COUNT 6.1 10^3/uL (4.0-10.5)
[2018-08-10 17:26] LABS: APPEARANCE,URINE CLOUDY; BILIRUBIN,URINE NEGATIVE (NEGATIVE); COLOR,URINE YELLOW; GLUCOSE, URINE NEGATIVE (NEGATIVE); KETONES,URINE NEGATIVE (NEGATIVE); LEUKOCYTE ESTERASE,URINE TRACE (NEGATIVE); NITRITE,URINE NEGATIVE (NEGATIVE); PROTEIN,URINE NEGATIVE (NEGATIVE); URINE SPECIFIC GRAVITY 1.029; UROBILINOGEN,URINE NEGATIVE mg/dL (<2.0)
[2018-08-10 17:40] LABS: ALANINE AMINOTRANSFERASE 31 U/L (9-52); ALBUMIN 4.3 g/dL (3.5-5.0); ALKALINE PHOSPHATASE 72 U/L (38-126); ANION GAP 10 (5-19); ASPARTATE AMINO TRANSFERASE 29 U/L (14-36); BILIRUBIN,DIRECT 0.2 mg/dL (0.0-0.4); BILIRUBIN,TOTAL 0.4 mg/dL (0.2-1.3); BLOOD UREA NITROGEN 18 mg/dL (7-20); CALCIUM 9.9 mg/dL (8.4-10.2); CARBON DIOXIDE 26 mmol/L (22-30); CHLORIDE 109 mmol/L (98-107); GLUCOSE 84 mg/dL (75-110); LIPASE 204.3 U/L (23-300); POTASSIUM 4.6 mmol/L (3.6-5.0)
--- NOTE | 2018-08-10 18:00 | ER Document Report ---
HPI - HPI Patient complains to provider of: Leakage around the ostomy bag with stoma irritation Time Seen by Provider: 08/10/18 16:19 Onset: Other - 2 weeks Onset/Duration: Gradual Quality of pain: Burning Severity: Moderate Pain Level: 3 Context: Patient is a 39-year-old female who had a colostomy placement back in March secondary to Crohn's disease. Patient states that she been doing fine while she was using a barrier cream over her fleshy tissue areas where the ostomy fits. She has had a slight leak around there and she stopped using the skin prep and this was at the direction of the ostomy people however that is when she started getting irritation around the site and the leakage got worse. Patient patient had a fistula secondary to the Crohn's disease and is why it was placed. The original surgery was up in [place] and she is due to go back on the of this month for possible reversal. Patient is here because she is run out of bags try to correct the leak. Associated Symptoms: None Exacerbated by: Denies Relieved by: Denies Similar symptoms previously: Yes Recently seen / treated by doctor: Yes - ROS ROS below otherwise negative: Yes Systems Reviewed and Negative: Yes All other systems reviewed and negative - REPRODUCTIVE Reproductive: DENIES: : - DERM Skin Color: Normal, [place] Skin Problems: Surgical Wound Past Medical History - General Information source: Patient - Social History Smoking Status: Current Every Day Smoker Cigarette use (# per day): Yes - Pack per day Chew tobacco use (# tins/day): No Frequency of alcohol use: None Drug Abuse: None Family History: Reviewed & Not Pertinent, Hypertension, Malignancy - Lung cancer Patient has suicidal ideation: No Patient has homicidal ideation: No - Past Medical History Cardiac Medical History: Denies: Hx Heart Attack, Hx Hypercholesterolemia, Hx Hypertension Pulmonary Medical History: Reports: Hx Pneumonia Denies: Hx Asthma, Hx Bronchitis, Hx COPD, Hx Tuberculosis Neurological Medical History: Denies: Hx Seizures Endocrine Medical History: Denies: Hx Diabetes Mellitus Type 2, Hx Hyperthyroidism, Hx Hypothyroidism Renal/ Medical History: Denies: Hx Peritoneal Dialysis GI Medical History: Reports: Hx Crohn's Disease Psychiatric Medical History: Reports: Hx Depression Infectious Medical History: Denies: Hx C-Diff Past Surgical History: Reports: Hx Abdominal Surgery - fistula repair and transfer to [facility] Hx Tubal Ligation, Other - Exploratory laparoscopy and limited exploratory laparotomy in July 2015.. Denies: Hx Hysterectomy, Hx Pacemaker - Immunizations Hx Diphtheria, Pertussis, Tetanus Vaccination: Yes Vertical Provider Document - CONSTITUTIONAL Agree With Documented VS: Yes Exam Limitations: No Limitations General Appearance: WD/WN, No Apparent Distress - INFECTION CONTROL TRAVEL OUTSIDE OF THE [place] IN LAST 30 DAYS: No - HEENT HEENT: Atraumatic - NECK Neck: Normal Inspection - RESPIRATORY Respiratory: Breath Sounds Normal, No Respiratory Distress. negative: Rales, Rhonchi, Wheezing - CARDIOVASCULAR Cardiovascular: Regular Rate - GI/ABDOMEN Gastrointestinal: Abdomen Soft - We will leave that, Normal Bowel Sounds Notes: Examination patient's abdomen shows that she has a colostomy in good position there is moderate irritation around the edges of the wafer. There is a slight oozing at the connection of the bag and the wafer. And this appears to have caused the wafer become somewhat dislodged. The ostomy itself the stoma appears to be somewhat inflamed. The covering over the stoma appears to be somewhat irritating and may be a slight too tight. Other than that patient is draining well she has a large amount of volume of stool out into the bag itself. - BACK Back: Normal Inspection - MUSCULOSKELETAL/EXTREMETIES Musculoskeletal/Extremeties: FROM, Non-Tender - NEURO Level of Consciousness: Awake, Alert, Appropriate Motor/Sensory: No Motor Deficit Deep Tendon Reflexes: 2+ - DERM Integumentary: Warm, Dry, No Rash Course - Re-evaluation Re-evalutation: 08/10/18 18:00 We are fortunate enough to have a 1 of the nurses that is well versed in ostomy care working today. His name is Marcelo I had him going and examined the patient he was a well-defined match in size way for as well as the bags went in and cleaned her up more I can see attached well with no leak he placed the bag with a light slightly larger ostomy holding it which also appeared to suited much better and patient feels much better and ready to go home. We have supplied her with [address] for adjusting case. She has an appointment with the surgeon for possible reversal on the of this month. At this point I do not see any reason for patient on any antibiotics. Labs were normal. - Vital Signs Vital signs: Temp Pulse Resp BP Pulse Ox 97.8 F 107 H 18 107/73 98 08/10/18 14:48 08/10/18 14:48 08/10/18 14:48 08/10/18 14:48 08/10/18 14:48 - Laboratory Result Diagrams: 08/10/18 16:36 08/10/18 16:36 Laboratory results interpreted by me: 08/10/18 08/10/18 08/10/18 16:36 16:36 16:36 RDW 16.8 H Plt Count 470 H Chloride 109 H Ur Leukocyte Esterase TRACE H Discharge - Discharge Clinical Impression: Colostomy care Condition: Stable Disposition: HOME, SELF-CARE Additional Instructions: At this point this is up approximately all we can do for the colostomy outside of the highly suggest that if this does not work you contact your home health care or your surgeon for a early intervention or at least an early evaluation of the colostomy itself. This is something to want to play with him as long as we get the leak stopped in the went back to using the skin protectant then you should be fine. However again if you need us return to ER for recheck. Referrals: JACQUELINE MUNOZ MD [Primary Care Provider] - Follow up as needed
[2018-08-10 18:17] VITALS: BP 105/72
== END 2018-08-10 18:18 | disposition home or self-care (01) ==
LOC: ER 14:34
DX: K94.09 Other complications of colostomy (principal); F17.210 Nicotine dependence, cigarettes, uncomplicated
CPT/HCPCS: 36415; 80053; 81001; 83690; 85025; 99284

== ENCOUNTER 2018-08-13 06:17 | Emergency (ER) | payer SELFPAY ==
[2018-08-13 06:26] VITALS: BP 105/73
--- NOTE | 2018-08-13 07:42 | ER Document Report ---
Entered by COREY WALKER SCRIBE 08/13/18 0726 Acting as scribe for:SIDNEY MORRIS MD ED General - General Chief Complaint: Medical Complaint Stated Complaint: COLOSTOMY BAG ISSUE Time Seen by Provider: 08/13/18 07:04 Primary Care Provider: JACQUELINE MUNOZ MD [Primary Care Provider] - Follow up as needed Mode of Arrival: Ambulatory Information source: Patient Notes: Patient is a 47 year old female with Crohn's disease presents to the emergency department complaining of leakage from colostmy bag. Patient states she presented 3 days ago complaining of similar symptoms and was discharged home after the ostomy bag was replaced. Patient states she continues to have leakage this morning. She reports having an appointment on August 19, 2018 to schedule a reversal. Patient states she received the diverting colostmy in 2017. TRAVEL OUTSIDE OF THE U.S. IN LAST 30 DAYS: No - Related Data Allergies/Adverse Reactions: ceftriaxone sodium [From Rocephin] Allergy (Severe, Verified 08/12/18 12:50) Anaphylaxis Ciprofloxacin Lactate [From Cipro I.V.] Allergy (Intermediate, Verified 08/12/18 12:50) Hives morphine Allergy (Verified 08/12/18 12:50) aspirin [Aspirin] Adverse Reaction (Intermediate, Verified 08/12/18 12:50) GI distress tramadol [Tramadol] Adverse Reaction (Intermediate, Verified 08/12/18 12:50) GI upset Past Medical History - General Information source: Patient - Social History Smoking Status: Current Every Day Smoker Cigarette use (# per day): Yes Chew tobacco use (# tins/day): No Smoking Education Provided: No Frequency of alcohol use: None Family History: Reviewed & Not Pertinent, Hypertension, Malignancy - Lung cancer Pulmonary Medical History: Reports: Hx Pneumonia GI Medical History: Reports: Hx Crohn's Disease, Other - Colostomy bag Psychiatric Medical History: Reports: Hx Depression Past Surgical History: Reports: Hx Abdominal Surgery - fistula repair and transfer to [facility] Hx Tubal Ligation, Other - Exploratory laparoscopy and limited exploratory laparotomy in July 2015. - Immunizations Hx Diphtheria, Pertussis, Tetanus Vaccination: Yes Review of Systems - Review of Systems Constitutional: No symptoms reported EENT: No symptoms reported Cardiovascular: No symptoms reported Respiratory: No symptoms reported Gastrointestinal: See HPI Genitourinary: No symptoms reported Female Genitourinary: No symptoms reported Musculoskeletal: No symptoms reported Skin: No symptoms reported Hematologic/Lymphatic: No symptoms reported Neurological/Psychological: No symptoms reported -: Yes All other systems reviewed and negative Physical Exam - Vital signs Vitals: Temp Pulse Resp BP Pulse Ox 97.6 F 89 14 105/73 100 08/13/18 06:19 08/13/18 06:19 08/13/18 06:08/13/18 06:08/13/18 06:19 - Notes Notes: GENERAL: Alert, interacts well. No acute distress. HEAD: Normocephalic, atraumatic. EYES: Pupils equal, round, and reactive to light. Extraocular movements intact. ENT: Oral mucosa moist, tongue midline. NECK: Full range of motion. Supple. Trachea midline. LUNGS: Clear to auscultation bilaterally, no wheezes, rales, or rhonchi. No respiratory distress. HEART: Regular rate and rhythm. No murmurs, gallops, or rubs. ABDOMEN: Patient has a colostomy in the medial right lower quadrant. The appliance does not appear to be sticking properly in the medial aspects of stool tunnels out into the divot in the abdomen from the old surgical procedures. The skin underneath the adhesive part of the appliance inside the ring is irritated and the appliance has difficulty maintaining a seal. EXTREMITIES: Moves all 4 extremities spontaneously. NEUROLOGICAL: Alert and oriented x3. Normal speech. PSYCH: Normal affect, normal mood. SKIN: Warm, dry, normal turgor. No rashes or lesions noted. Course - Re-evaluation Re-evalutation: 08/13/18 07:39 The charge nurse remove the patient's ostomy appliance and clean the area up. She applied 8 at cream and attached a new appliance getting a good seal. This was done with the patient's involvement so she can do the same thing at home. She is discharged with additional supplies. She is to follow-up with her surgeon on 08/19/2018 as scheduled. - Vital Signs Vital signs: Temp Pulse Resp BP Pulse Ox 97.6 F 89 14 105/73 100 08/13/18 06:19 08/13/18 06:19 08/13/18 06:19 08/13/18 06:08/13/18 06:19 Discharge - Discharge Clinical Impression: Colostomy care Condition: Stable Disposition: HOME, SELF-CARE Additional Instructions: Use the technique that the nurse demonstrated for you for removing and reapplying your ostomy appliance. Follow-up with your surgeon on 08/19/2018 as scheduled. Follow-up with your primary care provider if any problems this week. Referrals: JACQUELINE MUNOZ MD [Primary Care Provider] - Follow up as needed Scribe Attestation: 08/13/18 07:40 I personally performed the services described in the documentation, reviewed and edited the documentation which was dictated to the scribe in my presence, and it accurately records my words and actions. I personally performed the services described in the documentation, reviewed and edited the documentation which was dictated to the scribe in my presence, and it accurately records my words and actions.
== END 2018-08-13 08:05 | disposition home or self-care (01) ==
LOC: ER 06:17
DX: Z46.89 Encounter for fitting and adjustment of other specified devices (principal); K50.90 Crohn's disease, unspecified, without complications; Z93.3 Colostomy status; F17.210 Nicotine dependence, cigarettes, uncomplicated; Z88.1 Allergy status to other antibiotic agents; Z88.5 Allergy status to narcotic agent
CPT/HCPCS: 99283

== ENCOUNTER 2018-08-22 05:48 | Emergency (ER) | payer SELFPAY ==
[2018-08-22 05:54] VITALS: BP 123/77
== END 2018-08-22 06:43 | disposition left against medical advice (07) ==
LOC: ER 05:48
DX: Z53.21 Procedure and treatment not carried out due to patient leaving prior to being seen by health care provider (principal)

== ENCOUNTER 2018-08-25 04:00 | Emergency (ER) | payer SELFPAY ==
--- NOTE | 2018-08-25 06:34 | ER Document Report ---
HPI - HPI Patient complains to provider of: Ostomy bag problem Time Seen by Provider: 08/25/18 06:26 Pain Level: 3 Context: 47 female with history of Crohn's disease and an ostomy presents to the emergency department for ostomy bag malfunction. She said that it is leaking around the edges and it is causing her skin to burn. She was seen in the emergency department here 3 days ago for the same problem and was given education and supplies. She denies any fevers, chills, nausea or vomiting, abdominal pain, shortness of breath or chest pain. No other complaints ostomy bag is working properly. - REPRODUCTIVE Reproductive: DENIES: : Past Medical History - Social History Smoking Status: Unknown if Ever Smoked Family History: Reviewed & Not Pertinent, Hypertension, Malignancy - Lung cancer - Past Medical History Cardiac Medical History: Denies: Hx Heart Attack, Hx Hypercholesterolemia, Hx Hypertension Pulmonary Medical History: Reports: Hx Pneumonia Denies: Hx Asthma, Hx Bronchitis, Hx COPD, Hx Tuberculosis Neurological Medical History: Denies: Hx Seizures Endocrine Medical History: Denies: Hx Diabetes Mellitus Type 2, Hx Hyperthyroidism, Hx Hypothyroidism Renal/ Medical History: Denies: Hx Peritoneal Dialysis GI Medical History: Reports: Hx Crohn's Disease Psychiatric Medical History: Reports: Hx Depression Infectious Medical History: Denies: Hx C-Diff Past Surgical History: Reports: Hx Abdominal Surgery - fistula repair and transfer to [facility]., Hx Tubal Ligation, Other - Exploratory laparoscopy and limited exploratory laparotomy in July 2015.. Denies: Hx Hysterectomy, Hx Pacemaker - Immunizations Hx Diphtheria, Pertussis, Tetanus Vaccination: Yes Vertical Provider Document - CONSTITUTIONAL Notes: PHYSICAL EXAMINATION: Reviewed vital signs and charting by RN GENERAL: Well-appearing, well-nourished and in no acute distress. HEAD: Atraumatic, normocephalic. LUNGS: Breath sounds present, equal, and clear to auscultation bilaterally. No wheezes, rales, or rhonchi. HEART: Regular rate and rhythm without murmurs, rubs, or gallops. 2+ peripheral pulses. Normal capillary refill. ABDOMEN: Soft, nontender, nondistended. Normoactive bowel sounds. No guarding, no rebound. No masses appreciated. Ostomy pink and well perfused, no evidence of ischemia EXTREMITIES: Normal range of motion, no pitting or edema. No cyanosis. NEUROLOGICAL: No focal neurological deficits. Cranial nerves III-XII grossly intact. Moves all extremities spontaneously and on command. PSYCH: Normal mood, normal affect. No suicidal thoughts/ideations. No homocidal thoughts/ideations. No hallucinations. SKIN: Warm, dry, normal turgor, no rashes or lesions noted. - INFECTION CONTROL TRAVEL OUTSIDE OF THE [place] IN LAST 30 DAYS: No Course - Re-evaluation Re-evalutation: 08/25/18 07:15 Overall well-appearing. Patient is only here for care. She was given medication 3 days ago and given supplies. I told her the emergency department is not the proper place to obtain supplies and get her ostomy care. I told her she needs to follow-up with Dr. Munoz. Ostomy bag was replaced without problem. Stable for discharge. - Vital Signs Vital signs: Temp Pulse Resp BP Pulse Ox 97.9 F 92 18 121/80 121 H 08/25/18 04:01 08/25/18 04:01 08/25/18 04:01 08/25/18 04:01 08/25/18 04:01 Discharge - Discharge Clinical Impression: Encounter for ostomy care education, Complication of ostomy Condition: Good Disposition: HOME, SELF-CARE Additional Instructions: Please follow-up with your refurbish technician or primary care provider to get supplies for your ostomy device and bag. The emergency department is not the proper place to come for supplies or any malfunctions. The ostomy bags are reusable, you can clean them out and put them back on. Use the technique that the nurse demonstrated for you for removing and reapplying your ostomy appliance. Again, please refrain from using the emergency department to request any supplies. Is only for your benefit in for your education. Follow-up with your surgeon on 09/09/2018 as scheduled. Follow-up with your primary care provider if you have any problems this week. Referrals: JACQUELINE MUNOZ MD [Primary Care Provider] - Follow up as needed
[2018-08-25 06:56] VITALS: BP 108/69
== END 2018-08-25 06:56 | disposition home or self-care (01) ==
LOC: ER 04:00
DX: K94.09 Other complications of colostomy (principal)
CPT/HCPCS: 99282

== ENCOUNTER 2018-11-09 22:00 | Emergency (ER) | payer SELFPAY ==
[2018-11-09 22:10] VITALS: BP 107/81
== END 2018-11-09 23:40 | disposition left against medical advice (07) ==
LOC: ER 22:00
DX: Z53.21 Procedure and treatment not carried out due to patient leaving prior to being seen by health care provider (principal)

== ENCOUNTER 2018-11-12 13:44 | Emergency (ER) | payer MEDICAID ==
[2018-11-12 13:52] VITALS: BP 118/78
--- NOTE | 2018-11-12 14:25 | ER Document Report ---
ED Medical Screen (RME) - General Chief Complaint: Wound Recheck Stated Complaint: STOMACH PAIN Time Seen by Provider: 11/12/18 14:20 Primary Care Provider: JACQUELINE MUNOZ MD [Primary Care Provider] - Follow up as needed Mode of Arrival: Ambulatory Information source: Patient Notes: Patient presents to the emergency department with complaints of erythema pain around her colostomy. Patient reports she is gone through at least 5 colostomy bags and she is having skin irritation and pain. Reports stoma is the same color it normally is. Patient reports she received a colostomy in March due to Crohn's. She is due to have it reversed soon. Denies fever vomiting diarrhea. Reports the area is very sensitive and painful. Erythema noted. I have greeted and performed a rapid initial assessment of this patient. A comprehensive ED assessment and evaluation of the patient, analysis of test results and completion of the medical decision making process will be conducted by additional ED providers. Dictation of this chart was performed using voice recognition software; therefore, there may be some unintended grammatical errors. TRAVEL OUTSIDE OF THE [place] IN LAST 30 DAYS: No - Related Data Allergies/Adverse Reactions: ceftriaxone sodium [From Rocephin] Allergy (Severe, Verified 11/12/18 13:47) Anaphylaxis Ciprofloxacin Lactate [From Cipro I.V.] Allergy (Intermediate, Verified 11/12/18 13:47) Hives morphine Allergy (Verified 11/12/18 13:47) aspirin [Aspirin] Adverse Reaction (Intermediate, Verified 11/12/18 13:47) GI distress tramadol [Tramadol] Adverse Reaction (Intermediate, Verified 11/12/18 13:47) GI upset Past Medical History - Social History Family history: Reviewed & Not Pertinent - Past Medical History Cardiac Medical History: Denies: Hx Heart Attack, Hx Hypercholesterolemia, Hx Hypertension Pulmonary Medical History: Reports: Hx Pneumonia Denies: Hx Asthma, Hx Bronchitis, Hx COPD, Hx Tuberculosis Neurological Medical History: Denies: Hx Seizures Endocrine Medical History: Denies: Hx Diabetes Mellitus Type 2, Hx Hyperthyroidism, Hx Hypothyroidism Renal/ Medical History: Denies: Hx Peritoneal Dialysis GI Medical History: Reports: Hx Crohn's Disease Psychiatric Medical History: Reports: Hx Depression Infectious Medical History: Denies: Hx C-Diff Past Surgical History: Reports: Hx Abdominal Surgery - fistula repair and transfer to [facility]., Hx Tubal Ligation, Other - Exploratory laparoscopy and limited exploratory laparotomy in July 2015.. Denies: Hx Hysterectomy, Hx Pacemaker - Immunizations Hx Diphtheria, Pertussis, Tetanus Vaccination: Yes History of Influenza Vaccine for 01/2017 - 06/2017 Season: Refused Physical Exam - Vital signs Vitals: Temp Pulse Resp BP Pulse Ox 98.0 F 81 16 118/78 98 11/12/18 13:51 11/12/18 13:51 11/12/18 13:51 11/12/18 13:51 11/12/18 13:51 Course - Vital Signs Vital signs: Temp Pulse Resp BP Pulse Ox 98.0 F 81 16 118/78 98 11/12/18 13:51 11/12/18 13:51 11/12/18 13:51 11/12/18 13:51 11/12/18 13:51 Doctor's Discharge - Discharge Referrals: JACQUELINE MUNOZ MD [Primary Care Provider] - Follow up as needed
== END 2018-11-12 17:22 | disposition left against medical advice (07) ==
LOC: ER 13:44
DX: Z53.21 Procedure and treatment not carried out due to patient leaving prior to being seen by health care provider (principal); R10.9 Unspecified abdominal pain; K50.90 Crohn's disease, unspecified, without complications; Z90.49 Acquired absence of other specified parts of digestive tract
CPT/HCPCS: 99281

== ENCOUNTER 2018-11-22 13:59 | Emergency (ER) | payer MEDICAID ==
[2018-11-22 14:07] VITALS: BP 109/79
--- NOTE | 2018-11-22 15:42 | ER Document Report ---
HPI - HPI Patient complains to provider of: colostomy bag change Time Seen by Provider: 11/22/18 15:18 Onset: Yesterday Onset/Duration: Persistent Quality of pain: Burning Pain Level: 5 Context: Patient presents requesting a bag for her colostomy. Patient states that she only has Medicaid insurance and they only supply her with a certain number of bags. Patient states that her bags do not fit well and frequently leak leading to her having to change them more frequently. Patient states that she is seeing her doctor and he is changing her type of device that she will be using. Patient states that she presents requesting a new colostomy bag as she has been using sandwich bags at home. Associated Symptoms: Other - Pain at colostomy site. denies: Fever Exacerbated by: Denies Relieved by: Denies Similar symptoms previously: Yes Recently seen / treated by doctor: Yes - ROS ROS below otherwise negative: Yes Systems Reviewed and Negative: Yes All other systems reviewed and negative - CONSTITUTIONAL Constitutional: DENIES: Fever, Chills - NEURO Neurology: DENIES: Weakness - RESPIRATORY Respiratory: DENIES: Trouble Breathing - GASTROINTESTINAL Gastrointestinal: REPORTS: Abdominal Pain. DENIES: Nausea, Patient vomiting - REPRODUCTIVE Reproductive: DENIES: : - DERM Skin Color: Erythema Skin Problems: Rash Past Medical History - General Information source: Patient - Social History Smoking Status: Current Every Day Smoker Smoking Education Provided: Yes Frequency of alcohol use: None Drug Abuse: None Occupation: None Lives with: Family Family History: Reviewed & Not Pertinent, Hypertension, Malignancy - Lung cancer Pulmonary Medical History: Reports: Hx Pneumonia Neurological Medical History: Denies: Hx Seizures Endocrine Medical History: Denies: Hx Diabetes Mellitus Type 2, Hx Hyperthyroidism, Hx Hypothyroidism Renal/ Medical History: Denies: Hx Peritoneal Dialysis GI Medical History: Reports: Hx Crohn's Disease Psychiatric Medical History: Reports: Hx Depression Infectious Medical History: Denies: Hx C-Diff Past Surgical History: Reports: Hx Abdominal Surgery - fistula repair and transfer to [facility]., Hx Tubal Ligation, Other - Exploratory laparoscopy and limited exploratory laparotomy in July 2015.. Denies: Hx Hysterectomy, Hx Pacemaker - Immunizations Hx Diphtheria, Pertussis, Tetanus Vaccination: Yes Vertical Provider Document - CONSTITUTIONAL Agree With Documented VS: Yes Exam Limitations: No Limitations General Appearance: WD/WN, No Apparent Distress - INFECTION CONTROL TRAVEL OUTSIDE OF THE [place] IN LAST 30 DAYS: No - HEENT HEENT: Atraumatic, Normocephalic - NECK Neck: Normal Inspection - RESPIRATORY Respiratory: Breath Sounds Normal, No Respiratory Distress - CARDIOVASCULAR Cardiovascular: Regular Rate, Regular Rhythm - GI/ABDOMEN Gastrointestinal: Abdomen Soft, Abdomen Tender - Tenderness around ostomy site due to skin inflammation - BACK Back: Normal Inspection - MUSCULOSKELETAL/EXTREMETIES Musculoskeletal/Extremeties: MAEW - NEURO Level of Consciousness: Awake, Alert, Appropriate Motor/Sensory: No Motor Deficit - DERM Integumentary: Warm, Dry, Rash - Erythema and skin cracking around ostomy site. negative: Abscess Course - Re-evaluation Re-evalutation: 11/22/18 15:37 Patient with multiple visits here for replacement ostomy supplies. Patient encouraged to follow-up with her primary doctor regarding this issue as the emergency department does not typically dispense replacement supplies. Patient states that her insurance only covers a certain number of supplies and hers keep leaking at home. Patient states that she does not have money for supplies. Discussed smoking cessation with patient as this is an expensive habit. Patient states that she typically only bums cigarettes from household members. Referral was made to our senior materials planner regarding patient's frequent visits for ostomy supplies. - Vital Signs Vital signs: Temp Pulse Resp BP Pulse Ox 97.4 F 94 20 109/79 98 11/22/18 14:06 11/22/18 14:06 11/22/18 14:06 11/22/18 14:06 11/22/18 14:06 Discharge - Discharge Clinical Impression: Colostomy care Condition: Stable Disposition: HOME, SELF-CARE Additional Instructions: Return immediately for any new or worsening symptoms Followup with your primary care provider, call tomorrow to make a followup appointment Follow-up with a medical supply store for additional colostomy supplies. Referrals: JACQUELINE MUNOZ MD [Primary Care Provider] - Follow up tomorrow
== END 2018-11-22 15:48 | disposition home or self-care (01) ==
LOC: ER 13:59
DX: Z43.3 Encounter for attention to colostomy (principal); R10.9 Unspecified abdominal pain; R21 Rash and other nonspecific skin eruption; F17.200 Nicotine dependence, unspecified, uncomplicated
CPT/HCPCS: 99283

== ENCOUNTER 2020-02-13 13:26 | Emergency (ER) | payer MEDICAID ==
[2020-02-13 13:32] VITALS: BP 115/71
[2020-02-13] MEDS ORDERED: IPRATROPIUM/ALBUTEROL 0.5-2.5 MG/3 ML AMPUL NEB ONE (13:47)
[2020-02-13] MEDS ORDERED: ONDANSETRON 4 MG TAB.RAPDIS PO ONE (13:48)
--- NOTE | 2020-02-13 13:50 | ER Document Report ---
ED Medical Screen (RME) - General Chief Complaint: Cough Stated Complaint: COUGH,CONGESTION,SHORT OF BREATH Time Seen by Provider: 02/13/20 13:44 Primary Care Provider: HELEN SOLIS MD [Primary Care Provider] - Follow up as needed Mode of Arrival: Ambulatory Information source: Patient Notes: Patient presents complaining of cough and shortness of breath for the past 2 days. Patient reports midsternal chest discomfort today. Patient reports nausea without any vomiting or diarrhea. Patient reports an underlying history of Crohn's disease. I have greeted and performed a rapid initial assessment of this patient. A comprehensive ED assessment and evaluation of the patient, analysis of test results and completion of the medical decision making process will be conducted by additional ED providers. TRAVEL OUTSIDE OF THE [place] IN LAST 30 DAYS: No - Related Data Allergies/Adverse Reactions: ceftriaxone sodium [From Rocephin] Allergy (Severe, Verified 11/22/18 14:00) Anaphylaxis Ciprofloxacin Lactate [From Cipro I.V.] Allergy (Intermediate, Verified 11/22/18 14:00) Hives morphine Allergy (Verified 11/22/18 14:00) aspirin [Aspirin] Adverse Reaction (Intermediate, Verified 11/22/18 14:00) GI distress tramadol [Tramadol] Adverse Reaction (Intermediate, Verified 11/22/18 14:00) GI upset Past Medical History - Social History Family history: Reviewed & Not Pertinent - Past Medical History Cardiac Medical History: Denies: Hx Heart Attack, Hx Hypercholesterolemia, Hx Hypertension Pulmonary Medical History: Reports: Hx Pneumonia Denies: Hx Asthma, Hx Bronchitis, Hx COPD, Hx Tuberculosis Neurological Medical History: Denies: Hx Seizures Endocrine Medical History: Denies: Hx Diabetes Mellitus Type 2, Hx Hyperthyroidism, Hx Hypothyroidism Renal/ Medical History: Denies: Hx Peritoneal Dialysis GI Medical History: Reports: Hx Crohn's Disease Psychiatric Medical History: Reports: Hx Depression Infectious Medical History: Denies: Hx C-Diff Past Surgical History: Reports: Hx Abdominal Surgery - fistula repair and transfer to [facility] Hx Tubal Ligation, Other - Exploratory laparoscopy and limited exploratory laparotomy in July 2015.. Denies: Hx Hysterectomy, Hx Pacemaker - Immunizations Hx Diphtheria, Pertussis, Tetanus Vaccination: Yes Physical Exam - Vital signs Vitals: Temp Pulse Resp BP Pulse Ox 99.1 F 92 18 115/71 97 02/13/20 13:30 02/13/20 13:30 02/13/20 13:30 02/13/20 13:30 02/13/20 13:30 - Respiratory Respiratory status: No respiratory distress Chest status: Tender Breath sounds: Nonproductive cough, Rales, Wheezing Course - Vital Signs Vital signs: Temp Pulse Resp BP Pulse Ox 99.1 F 92 18 115/71 97 02/13/20 13:30 02/13/20 13:30 02/13/20 13:30 02/13/20 13:30 02/13/20 13:30 Doctor's Discharge - Discharge Referrals: HELEN SOLIS MD [Primary Care Provider] - Follow up as needed
== END 2020-02-13 14:28 | disposition left against medical advice (07) ==
LOC: ER 13:26
DX: R05 Cough (principal); R06.02 Shortness of breath; Z88.6 Allergy status to analgesic agent; Z88.3 Allergy status to other anti-infective agents
CPT/HCPCS: 99281

== ENCOUNTER 2020-02-16 07:07 | Emergency (ER) | payer MEDICAID ==
[2020-02-16] MEDS ORDERED: NORMAL SALINE 1000 ML 1,000 ML IV ONE (08:47)
[2020-02-16 09:00] LABS: ABSOLUTE BASOPHILS # (AUTO) 0.1 10^3/uL (0.0-0.2); ABSOLUTE LYMPHOCYTES (AUTO) 1.4 10^3/uL (0.5-4.7); ABSOLUTE MONOCYTES (AUTO) 0.5 10^3/uL (0.1-1.4); BASOPHILS % (AUTO) 0.9 % (0-2); EOSINOPHILS % (AUTO) 0.5 % (0-6); HEMATOCRIT 40.2 % (36.0-47.0); HEMOGLOBIN 14.2 g/dL (12.0-15.5); LYMPHOCYTES % (AUTO) 15.1 % (13-45); MEAN CORPUSCULAR HEMOGLOBIN 33.6 pg (27.0-33.4); MEAN CORPUSCULAR HGB CONC 35.2 g/dL (32.0-36.0); MEAN CORPUSCULAR VOLUME 95 fl (80-97); PLATELET COUNT 320 10^3/uL (150-450); RED BLOOD COUNT 4.22 10^6/uL (3.72-5.28); RED CELL DISTRIBUTION WIDTH 12.7 % (11.5-14.0); SEGMENTED NEUTROPHILS % (AUTO) 77.5 % (42-78); TOTAL CELLS COUNTED % (AUTO) 100 %; WHITE BLOOD COUNT 9.1 10^3/uL (4.0-10.5)
[2020-02-16 09:07] LABS: ALBUMIN 4.6 g/dL (3.5-5.0); ALKALINE PHOSPHATASE 63 U/L (38-126); ANION GAP 13 (5-19); ASPARTATE AMINO TRANSFERASE 26 U/L (14-36); BILIRUBIN,DIRECT 0.1 mg/dL (0.0-0.4); BILIRUBIN,TOTAL 1.2 mg/dL (0.2-1.3); BLOOD UREA NITROGEN 14 mg/dL (7-20); CARBON DIOXIDE 23 mmol/L (22-30); CHLORIDE 104 mmol/L (98-107); CREATINE KINASE 187 U/L (30-135); GLUCOSE 99 mg/dL (75-110); POTASSIUM 4.1 mmol/L (3.6-5.0); TOTAL PROTEIN 8.1 g/dL (6.3-8.2)
[2020-02-16 09:10] LABS: ALCOHOL < 10 mg/dL (NONE DETECTED)
--- NOTE | 2020-02-16 09:25 | RADIOLOGY REPORT (SQ) ---
EXAM DESCRIPTION: CHEST SINGLE VIEW IMAGES COMPLETED DATE/TIME: 02/16/2020 9:12 am REASON FOR STUDY: cough COMPARISON: 05/24/2016 EXAM PARAMETERS: NUMBER OF VIEWS: One view. TECHNIQUE: Single frontal radiographic view of the chest acquired. RADIATION DOSE: NA LIMITATIONS: None. FINDINGS: LUNGS AND PLEURA: Lung johnson remain hyperexpanded but clear. No pneumothorax. No effusi ons. MEDIASTINUM AND HILAR STRUCTURES: No masses. Contour normal. HEART AND VASCULAR STRUCTURES: Heart normal in size. Normal vasculature. BONES: No acute findings. HARDWARE: None in the chest. OTHER: No other significant finding. IMPRESSION: Hyperexpansion otherwise negative chest. TECHNICAL DOCUMENTATION: JOB ID: [id number] 2010 codetag- All Rights Reserved Reading location - IP/workstation name: [email or web address]
[2020-02-16 10:06] LABS: APPEARANCE,URINE SLIGHTLY-CLOUDY; BILIRUBIN,URINE NEGATIVE (NEGATIVE); COLOR,URINE AMBER; GLUCOSE, URINE NEGATIVE (NEGATIVE); KETONES,URINE TRACE mg/dL (NEGATIVE); LEUKOCYTE ESTERASE,URINE NEGATIVE (NEGATIVE); NITRITE,URINE NEGATIVE (NEGATIVE); PROTEIN,URINE 30 mg/dL (NEGATIVE); UROBILINOGEN,URINE NEGATIVE mg/dL (<2.0)
[2020-02-16] MEDS ORDERED: SULFAMETHOXAZOLE/TRIMETHOPRIM 800-160 MG TABLET PO ONE (10:14)
[2020-02-16 10:20] LABS: URINE AMPHETAMINES SCREEN NEGATIVE; URINE BARBITURATES SCREEN NEGATIVE; URINE BENZODIAZEPINES SCREEN NEGATIVE; URINE MARIJUANA (THC) SCREEN NEGATIVE; URINE METHADONE SCREEN NEGATIVE; URINE PHENCYCLIDINE SCREEN NEGATIVE
[2020-02-16 10:21] LABS: URINE COCAINE SCREEN UNCONFIRMED POSITIVE
--- NOTE | 2020-02-16 12:01 | ER Document Report ---
Entered by DEMARIO SANTIAGO SCRIBE 02/16/20 0824 Acting as scribe for:RENEE STATON MD ED General - General Chief Complaint: Cough Stated Complaint: COUGH,CONGESTION,SHORT OF BREATH Primary Care Provider: HELEN SOLIS MD [Primary Care Provider] - Follow up as needed Mode of Arrival: Ambulatory Information source: Patient Notes: This 49 year old female patient presents to the ED today with complaints of productive cough with associated chest wall pain for the past x1 week. Patient states that she brings up green sputum when she coughs. 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 TRAVEL OUTSIDE OF THE [place] IN LAST 30 DAYS: No - Related Data Allergies/Adverse Reactions: ceftriaxone sodium [From Rocephin] Allergy (Severe, Verified 11/22/18 14:00) Anaphylaxis Ciprofloxacin Lactate [From Cipro I.V.] Allergy (Intermediate, Verified 11/22/18 14:00) Hives morphine Allergy (Verified 11/22/18 14:00) aspirin [Aspirin] Adverse Reaction (Intermediate, Verified 11/22/18 14:00) GI distress tramadol [Tramadol] Adverse Reaction (Intermediate, Verified 11/22/18 14:00) GI upset Past Medical History - General Information source: Patient, H Records - Social History Smoking Status: Current Every Day Smoker Smoking Education Provided: No Frequency of alcohol use: None Drug Abuse: None Family History: Reviewed & Not Pertinent, Hypertension, Malignancy - Lung cancer Patient has suicidal ideation: No Patient has homicidal ideation: No Pulmonary Medical History: Reports: Hx Pneumonia GI Medical History: Reports: Hx Crohn's Disease Psychiatric Medical History: Reports: Hx Depression Past Surgical History: Reports: Hx Abdominal Surgery - fistula repair, Hx Tubal Ligation, Other - Exploratory laparoscopy and limited exploratory laparotomy in July 2015. - Immunizations Hx Diphtheria, Pertussis, Tetanus Vaccination: Yes Review of Systems - Review of Systems Constitutional: See HPI. denies: Chills, Fever EENT: No symptoms reported Cardiovascular: No symptoms reported Respiratory: See HPI, Cough, Sputum Gastrointestinal: No symptoms reported Genitourinary: No symptoms reported Female Genitourinary: No symptoms reported Musculoskeletal: No symptoms reported Skin: No symptoms reported Hematologic/Lymphatic: No symptoms reported Neurological/Psychological: No symptoms reported -: Yes All other systems reviewed and negative Physical Exam - Vital signs Vitals: Temp Pulse Resp BP Pulse Ox 98.2 F 87 18 100/71 97 02/16/20 07:22 02/16/20 07:22 02/16/20 07:22 02/16/20 07:22 02/16/20 07:22 Interpretation: Normal - General General appearance: Alert, Other - Appears thin and frail In distress: None - HEENT Head: Normocephalic, Atraumatic Eyes: Normal Pupils: PERRL - Respiratory Respiratory status: No respiratory distress Chest status: Nontender Breath sounds: Productive cough Chest palpation: Normal - Cardiovascular Rhythm: Regular Heart sounds: Normal auscultation Murmur: No Friction rub: No Isai's crunch: No - Abdominal Inspection: Normal Distension: No distension Bowel sounds: Normal Tenderness: Nontender - Abdomen soft Organomegaly: No organomegaly - Back Back: Normal, Nontender - Extremities General upper extremity: Normal inspection General lower extremity: Normal inspection. No: Edema - Neurological Neuro grossly intact: Yes Orientation: AAOx4 Fredy Coma Scale Eye Opening: Spontaneous [place] Coma Scale Verbal: Oriented [place] Coma Scale Motor: Obeys Commands Fredy Coma Scale Total: 15 - Psychological Associated symptoms: Normal affect, Normal mood - Skin Skin Temperature: Warm Skin Moisture: Dry Skin Color: Normal Course - Re-evaluation Re-evalutation: 02/16/20 11:57 Patient resting. - Vital Signs Vital signs: Temp Pulse Resp BP Pulse Ox 98.2 F 87 18 100/71 97 02/16/20 07:22 02/16/20 07:22 02/16/20 07:22 02/16/20 07:22 02/16/20 07:22 02/16/20 11:57 Vital signs stable - Laboratory Result Diagrams: 02/16/20 08:05 02/16/20 08:05 Laboratory results interpreted by me: 02/16/20 02/16/20 02/16/20 08:05 08:05 09:27 MCH 33.6 H Creatine Kinase 187 H Urine Protein 30 H Urine Ketones TRACE H Urine Ascorbic Acid 20 H Laboratories within normal range CK 187. - Diagnostic Test Radiology reviewed: Image reviewed, Reports reviewed Radiology results interpreted by me: 02/16/20 11:58 Chest X-Ray 02/16/20 08:45 IMPRESSION: Hyperexpansion otherwise negative chest. Chest x-ray shows no acute infiltrate. Expansion of the lungs otherwise no acute process. Discharge - Discharge Clinical Impression: Acute bronchitis Condition: Stable Disposition: HOME, SELF-CARE Instructions: COVID-19 Guidance for Persons Under Investigation Additional Instructions: Bronchitis You have acute bronchitis. This disease is an infection or inflammation of the air passageways in your lungs. Symptoms usually include cough, low grade fever, shortness of breath, and wheezing. The cough usually persists for a couple of weeks. Most cases of bronchitis get better without antibiotics. We prescribe antibiotics when we believe bacteria are damaging your airways, or if there's high risk the bronchitis will worsen into pneumonia. Increase your fluid intake. A cool mist humidifier may make your lungs more comfortable. An expectorant (cough medicine that loosens phlegm) can help. If you smoke, STOP!!! Recovery from bronchitis can be somewhat slow, but you should see improvement within a day or two. Repeated episodes of bronchitis may result in lung damage -- for example, chronic bronchitis, recurrent pneumonias, or emphysema. Call the doctor if you develop increasing fever, shortness of breath, chest pain, bloody sputum, or otherwise worsen. If you have not improved at all after several days, contact the physician. Prescriptions: Sulfamethoxazole/Trimethoprim [Bactrim Ds Tablet] 1 tab PO BID #20 tablet Guaifenesin/Dextromethorphan [Mucinex Dm ER 600-30 mg Tablet] 1 each PO BID 10 Days #20 tab.er.12h Forms: Return to Work Referrals: HELEN SOLIS MD [Primary Care Provider] - Follow up as needed I personally performed the services described in the documentation, reviewed and edited the documentation which was dictated to the scribe in my presence, and it accurately records my words and actions.
[2020-02-16 12:13] VITALS: BP 111/64
== END 2020-02-16 12:15 | disposition home or self-care (01) ==
LOC: ER 07:07
DX: J20.9 Acute bronchitis, unspecified (principal); Z20.828 Contact with and (suspected) exposure to other viral communicable diseases; R06.02 Shortness of breath; R68.89 Other general symptoms and signs; F17.200 Nicotine dependence, unspecified, uncomplicated; Z88.6 Allergy status to analgesic agent
CPT/HCPCS: 99284; 96360; 96361; 36415; 87040; 87070; 87205; 80307 ×2; 82550; 85025; 87635; 87077; 80053; 81001; 87186; 71045; J3490; J7030; C9803